=== PATIENT | male | born 1990 | race Caucasian/White ===

== ENCOUNTER 2024-04-07 11:34 | Emergency (ER) | payer MEDICAID, SELFPAY ==
--- NOTE | ~2024-04-07 | CT_ITS ---
EXAMINATION: CT HEAD WITHOUT CONTRAST CLINICAL INFORMATION: Head injury. Seizure. COMPARISON: None available. TECHNIQUE: Contiguous axial imaging was performed from the skull base to vertex without intravenous administration of contrast. This CT examination was performed using dose optimization techniques as appropriate, variously including the following: *Automated exposure control. *Adjustment of mA and/or kV according to patient size (this includes techniques or standardized protocols for targeted exams where dose is matched to indication/reason for exam; i.e. extremities or head). *Use of iterative reconstruction technique. DLP: 646 mGy-cm FINDINGS: There is no evidence of acute intracranial hemorrhage or edematous territorial infarction. Potential region of encephalomalacia along the undersurface of the right temporal lobe. No additional loss of farmer-white matter differentiation. There is no abnormal attenuation within the brain parenchyma. The ventricles are normal in morphology and size. No evidence for obstructive hydrocephalus. No abnormal mass effect or midline shift. No extra-axial fluid collections. No acute soft tissue or osseous abnormalities. Mild mucosal thickening of the paranasal sinuses. The mastoid air cells and middle ear cavities are clear. CT/CT head/brain wo IV con IMPRESSION: 1. No evidence of acute intracranial hemorrhage or edematous territorial infarction. 2. Potential region of encephalomalacia along the undersurface of the right temporal lobe. Electronically signed by: Adrian Ibrahim DO 04/07/2024 04:12 PM EDT
[2024-04-07 11:48] VITALS: BP 118/70; BP 126/87; PULSE 85; PULSE 89; RESP 16; TEMP 36.9; O2SAT 97; O2SAT 98; BMI 23.6
--- NOTE | 2024-04-07 11:58 | ED_ITS ---
HPI - General Adult General Chief complaint: Seizure Stated complaint: SZ,FALL W/HIT HEAD,+CCOLLAR,-THIN PER EMS Time Seen by Provider: 04/07/24 11:58 History of Present Illness ED Provider: Niru MENDOZA narrative: The patient is a 34-year-old male who was sent to the emergency room from the [facility] in [place] after a possible seizure episode. Apparently there was an episode that lasted about a minute which may have been a seizure. According to information from the [facility] the event lasted less than a minute and the patient drop to the floor. According to medical records provided by the care home the patient has a history of chronic mental illness including schizoaffective disorder, bipolar type as well as hyperlipidemia, type 2 diabetes, and an unspecified seizure disorder. Among other medications the patient is on carbamazepine and valproic acid. Patient is not a very forthcoming historian. He acknowledges he might have a history of a seizure disorder but he does not firmly confirm this. He denies any sense of injury or pain. He does not really feel he can give any additional history about what happened. He denies any headache. He denies any neck pain. He denies any sense of injury. He does not feel ill. According to the documents which came with the patient the patient is Haldol decanoate 300 mg every 4 weeks. He is also on oral haloperidol. Additional medications include Depakote, carbamazepine, benztropine, metformin, fenofibrate, atorvastatin. He has a Yahir's order. He also has a guardian. Related Data Allergies Allergy/AdvReac Type Severity Reaction Status Date / Time No Known Allergies Allergy Verified 04/07/24 11:53 Review of Systems 2 Review of Systems: Yes all other systems are reviewed and are negative [facility] Social History Social History Smoked in Last 30 Days: No Use of substances other than those prescribed or required for medical reasons: No Advance Directives: No Do you have a plan to hurt others: No Plan Physical Exam ED Vital Signs: Vital Signs - 24 hr 04/07/24 11:48 04/07/24 15:24 04/07/24 16:23 Temperature 98.5 F 98.5 F 98.3 F Pulse Rate 85 91 80 Respiratory Rate 16 16 14 Blood Pressure 126/87 130/83 120/70 Pulse Oximetry 97 98 98 Oxygen Delivery Method Room Air Room Air Room Air BMI result Body Mass Index 23.6 Const Other: The patient is a slim 34-year-old who was awake and alert. He was in a cervical collar. He dd not appear in acute distress or seem obviously acutely injured. HENMT Other: The face is unremarkable in appearance. The face is symmetrical. There is no raccoon eyes. No escalona sign. Tympanic membranes are normal bilaterally. No hemotympanum. No sign of injury to the head or face. Eyes General: appearance normal, both eyes and all related structures Eyelids: Yes eyelids normal Conjunctivae: conjunctivae normal Pupils: Equal, round and reactive pupils present EOM: EOMs intact bilaterally Neck Other: No posterior midline C-spine tenderness. Moving his head easily without neck pain. C-spine is clinically clear. Resp Effort & Inspection: normal respiratory effort Auscultation: clear to auscultation bilaterally Cardio Rate: regular rate Rhythm: regular rhythm Heart sounds: S1 normal heart sound present and S2 normal heart sound present GI Other: Abdomen is soft and nontender Skin Other: Skin is dry and unremarkable Neuro Other: The patient is awake and alert. He does not seem much but answer simple questions. Cranial nerves are grossly intact. He moves his extremities normally and seems grossly neurologically intact Cranial nerves: Yes Equal, round and reactive pupils present Extrem Other: No signs of injury to the extremities Medications Administered Discontinued Medications Generic Name Dose Route Start Last Admin Trade Name Freq PRN Reason Stop Dose Admin Valproic Acid 500 mg 04/07/24 14:18 04/07/24 15:47 Valproic Acid 250 Mg Capsule PO 04/07/24 14:19 500 mg ONCE ONE Administration Medical Decision Making Medical Decision Making [facility] Narrative: The patient is a 34-year-old male who was sent to the emergency room from the [facility] after a possible seizure. According to paperwork from the [facility] the patient has a history of a seizure disorder. He is on Depakote and carbamazepine. His carbamazepine level today is 6.0, in the therapeutic range. His valproic acid level is 47.4, just under the therapeutic range. He was given 500 mg of additional oral Depakote. Other labs show a transaminitis with the AST of 193 and an ALT of 151. However bilirubins are normal. Alk phos is not elevated. The significance of this transaminitis is not clear but I think there is no indication for imaging. He has no abdominal pain or tenderness. At the request of the [facility] we obtained a head CT. They were concerned that he hit his head during the seizure episode. Head CT shows no acute intracranial injury. However the reading describes an area of ?potential region of encephalomalacia along the undersurface of the right temporal lobe. ? I suspect that the patient, who has a seizure disorder, probably had a seizure today. He was given 500 mg of additional oral Depakote. I think he may return to his [facility]. They may wish to increase his Depakote. There is probably also room to increase his carbamazepine as well. Lab Data 04/07/24 12:30 04/07/24 12:30 Labs: Lab Results 04/07/24 Range/Units 12:30 WBC 5.8 (4.8-10.8) X10*3/uL RBC 4.35 L (4.60-5.80) X10*6/uL Hgb 13.4 L (14.0-18.0) g/dl Hct 38.0 L (42.0-52.0) % MCV 87.4 (80.0-98.0) fL MCH 30.8 (27.0-33.0) pg MCHC 35.3 (31.0-36.0) g/dl RDW 13.2 (11.0-16.0) % Plt Count 167 (160-400) X10*3/uL MPV 12.0 (9.4-12.4) fL Immature Gran % (Auto) 0.3 (0.0-0.4) % Neut % (Auto) 65.7 (45-73) % Lymph % (Auto) 23.8 (20-40) % [place] % (Auto) 9.3 (2-11) % Eos % (Auto) 0.2 (0-4) % Baso % (Auto) 0.7 (0-2) % Lymph # (Auto) 1.4 (1.2-4.9) X10*3/uL [place] # (Auto) 0.5 (0.1-1.2) X10*3/uL Eos # (Auto) 0.0 (0.0-0.4) X10*3/uL Baso # (Auto) 0.0 (0.0-0.2) X10*3/uL Abs Immat Gran (auto) 0.02 (0.00-0.03) X10*3/uL Absolute Neuts (auto) 3.8 (2.0-8.3) x10*3/uL Absolute Nucleated RBC 0.000 (0.0-0.012) X10*3/uL Nucleated RBC % (auto) 0.0 (0.0-0.2) /100WBC Sodium 138 (135-145) mmol/L Potassium 4.3 (3.3-5.1) mmol/L Chloride 103 (96-108) mmol/L Carbon Dioxide 26 (22-29) mmol/L Anion Gap 13 (12-20) BUN 11 (9-16) mg/dL Creatinine 0.79 (0.5-1.4) mg/dL Estim Creat Clear Calc 132.9 Estimated GFR > 60 Random Glucose 95 (60-115) mg/dL Calcium 10.1 (8.4-10.2) mg/dL Magnesium 2.0 (1.6-2.6) mg/dL Total Bilirubin 0.6 (0.0-1.0) mg/dL Direct Bilirubin 0.3 (0.0-0.5) mg/dL AST 193 H (5-37) U/L ALT 151 H (0-40) U/L Alkaline Phosphatase 35 L (39-117) U/L Total Protein 8.1 H (6.5-8.0) g/dL Albumin 4.7 (3.5-5.0) g/dL Urine Color Dark Yellow Urine Appearance Cloudy Urine pH 8.0 (5.0-9.0) Ur Specific [place] >= 1.030 H (1.005-1.025) Urine Protein 30 (1+) H (Neg-Trace) mg/dL Urine Glucose (UA) Negative (Negative) mg/dL Urine Ketones 15 (Negative) mg/dL Urine Blood Negative (Negative) Urine Nitrite Negative (Negative) Ur Leukocyte Esterase Small (1+) H (Negative) Urine RBC 0-2 (0-2) /HPF Urine WBC 0-5 (0-5) /HPF Ur Squamous Epith Cells 0-2 (0-2) /HPF Urine Bacteria None Seen (None Seen) Hyaline Casts 3-5 (0-2) /LPF Urine Opiates Screen Not Detected (Not Detect) Ur Buprenorphine Scrn Not Detected (Not Detect) ng/mL Ur Oxycodone Screen Not Detected (Not Detect) ng/mL Urine Methadone Screen Not Detected (Not Detect) ng/mL Urine Fentanyl Screen Not Detected (Not Detect) Ur Barbiturates Screen Not Detected (Not Detect) Valproic Acid 47.4 L (50.0-100.0) mcg/mL Carbamazepine 6.0 (5.0-12.0) mcg/mL Ur Phencyclidine Scrn Not Detected (Not Detect) Ur Amphetamines Screen Not Detected (Not Detect) U Benzodiazepines Scrn Not Detected (Not Detect) Urine Cocaine Screen Not Detected (Not Detect) U Marijuana (THC) Screen Not Detected (Not Detect) Ethyl Alcohol < 10 mg/dL Independent Interpretation I performed an independent interpretation of an: EKG Interpretation: EKG at 12:45 shows normal sinus rhythm at 84 beats per minute. It is an unremarkable EKG. Intervals unremarkable. Discharge Plan Discharge Clinical Impression: Seizure-like activity Patient Disposition: Xfer Psychiatric Hosp Additional Instructions: Laboratory testing reveals a valproic acid level slightly subtherapeutic at 47.4. He was given an additional 500 mg of valproic acid here. Please consider increasing his valproic acid dosing. Carbamazepine level today was 6.0. This is within the therapeutic range but at the low end of the therapeutic range. Carbamazepine dosing might be increased as well. The patient has some mild elevation of transaminases. AST is 183. ALT is 151. Bilirubin is normal. Alk phos is low at 35. The significance of these findings is unclear. No old values available for comparison. Head CT shows a possible area of encephalomalacia along the undersurface of the right temporal lobe. No acute findings. Return to the emergency room if worse. Interventions: Acute Care Transfer Worksheet (ED) Last Done: 04/07/24 16:23 Discharge Date/Time: 04/07/24 18:44 Print Language: Solomon Islander
--- NOTE | 2024-04-07 12:04 | ECG_ITS ---
Test Reason : SEIZURE Blood Pressure : / mmHG Vent. Rate : 180 BPM Atrial Rate : 182 BPM P-R Int : 120 ms QRS Dur : 132 ms QT Int : 254 ms P-R-T Axes : 000 266 073 degrees QTc Int : 439 ms Sinus tachycardia Right bundle branch block Abnormal ECG When compared with ECG of 19-SEP-2019 10:01, Vent. rate has increased BY 103 BPM Right bundle branch block is now Present Referred By: Erick Marrufo Electronically Signed By:
[2024-04-07 12:35] LABS: MANUAL DIFF FLAG NO
[2024-04-07 12:37] LABS: Appearance Urine Cloudy; Basophils Percent Auto 0.7 % (0-2); Color Urine Dark Yellow; Eosinophils Percent Auto 0.2 % (0-4); Glucose Urine UA Negative (Negative); Hemoglobin 13.4 g/dl (14.0-18.0); Imm Gran Abs Auto 0.02 X10*3/uL (0.00-0.03); Imm Gran Pct Auto 0.3 % (0.0-0.4); Leukocyte Esterase Urine Small (1+) (Negative); Lymphocytes Absolute Auto 1.4 X10*3/uL (1.2-4.9); Lymphocytes Percent Auto 23.8 % (20-40); Mean Corpuscular HGB Conc 35.3 g/dl (31.0-36.0); Mean Corpuscular Hemoglobin 30.8 pg (27.0-33.0); Mean Corpuscular Volume 87.4 fL (80.0-98.0); Monocytes Absolute Auto 0.5 X10*3/uL (0.1-1.2); Monocytes Percent Auto 9.3 % (2-11); Neutrophils Absolute Auto 3.8 x10*3/uL (2.0-8.3); Neutrophils Percent Auto 65.7 % (45-73); Nitrite Urine Negative (Negative); Platelet Count 167 X10*3/uL (160-400); Red Blood Count 4.35 X10*6/uL (4.60-5.80); Red Cell Distribution Width 13.2 % (11.0-16.0); Specific Gravity - Urine >= 1.030 (1.005-1.025); UMIC TRIGGER UACC YES; Urine Blood Negative (Negative); Urine Ketones 15 mg/dL (Negative); Urine Protein 30 (1+) mg/dL (Neg-Trace); White Blood Count 5.8 X10*3/uL (4.8-10.8)
[2024-04-07 12:45] LABS: Bacteria Urine None Seen (None Seen); RBC Urine 0-2 /HPF (0-2); Squamous Epithelial Cell Urine 0-2 /HPF (0-2); UACC Culture Trigger YES; WBC Urine 0-5 /HPF (0-5)
[2024-04-07 12:47] LABS: Amphetamine Screen Urine Not Detected (Not Detect); Barbiturates, Urine Not Detected (Not Detect); Benzodiazepines Screen Urine Not Detected (Not Detect); Buprenorphine Scr Not Detected (Not Detect); Cannabinoid Screen Urine Not Detected (Not Detect); Cocaine Screen Urine Not Detected (Not Detect); Fentanyl, urine Not Detected (Not Detect); Methadone Screen, Urine Not Detected (Not Detect); Opiate Screen Urine Not Detected (Not Detect); Oxycodone Screen Urine Not Detected (Not Detect); Phencyclidine Screen Urine Not Detected (Not Detect)
--- OUTSIDE RECORDS SUMMARY | 2024-04-07 12:47 | XMS_ITS | Continuity of Care Document ---
Author Organization [facility] Address [address] [place] [id number]- Care Team Providers Care Firefighter Name Role Phone Not on Staff, PCP Primary Care Physician Unavail able Encounter [facility] Date(s): 09/27/20 - 10/04/[address] [address]- Encounter Diagnosis Agitation(Final) - 09/27/20 Discharge Disposition: Transfer to [facility] Facility Attending Physician: García Diehl MD Admitting Physician: García Diehl MD Referring Physician: Not on Staff, Referring MD Allergies, Adverse Reactions, Alerts Substance Reaction Severity Status NKA Active Immunizations Given and Recorded Vaccine Date Status Refusal Reason tetanus/diphtheria/pertussis, acel(Tdap) 02/13/13 Given Not Given Vaccine Date Status Refusal Reason pneumococcal 23-valent vaccine 1 06/26/17 Not Give n Patient Refuses pneumococcal 23-valent vaccine 02/27/14 Not Given Patient Refuses pneumococcal 23-valent vaccine 11/07/13 Not Given Patient Refuses influenza virus vaccine, inactivated 2 06/26/17 No t Given Patient Refuses 1Result Note: Education given 2Result Note: Education given Medications benztropine 1 mg oral tablet 1 mg, 1, tablet, By Mouth, 2 times a day, # 28 tablet, Refills 2, Tot. Refills 2, Maintenance, 07/12/19 12:02:10 EST, Route to Pharmacy Electronically, [id number]_[id number], [facility]-, 176, cm, 07/12/19 7:31:19 EST, Height, 95, k... Start Date: 07/12/19 Stop Date: 08/23/19 Status: Ordered Haldol Decanoate decanoate 100 mg/ml injectable solution See Instructions, 300 mg Intramuscular Once, next dose on 08/03, may be given before or after 3 daywindow., # 1 pack/packet, 0 Refills, Soft Stop, 07/12/19 11:51:18 EST, Solution, 176, cm, 07/12/19 7:31:19 EST, Height, 95, kg, 07/06/19 20:41:29 EST,... Start Date: 07/12/19 Status: Ordered olanzapine 15 mg oral tablet 1 tablet = 15 mg, By Mouth, 2 times a day, Maintenance, 08/13/20 14:44:00 EST, Tablet Start Date: 08/13/20 Status: Ordered TEGretol XR 400 mg oral tablet, extended release 400 mg, 1, tablet, By Mouth, Every 12 hours, # 14 tablet, Refills 0, Tot. Refills 0, Maintenance, 08/20/20 11:50:00 EST, Route to Pharmacy Electronically, [facility], Partialfill upon patient request if the prescription is fo... Start Date: 08/20/20 Stop Date: 08/27/20 Status: Ordered Problem List Condition Effective Dates Status Health Status Inform ant Bipolar disorder(Confirmed) Active Epileptic seizure, generalized(Confirmed) Active Generalized seizure(Confirmed) Active Seizure disorder(Confirmed) Active Tobacco dependence(Confirmed) Active Vital Signs Most recent to oldest [Reference Range]: 1 2 3 Oxygen Saturation [94-100 %] 97 % (10/04/20 2:20 PM) 96 % (10/04/20 6:17 AM) 98 % (10/03/20 8:42 PM) Pulse Rate [55-90 bpm] 94 bpm *H* (10/04/20 2:20 PM) 61 bpm (10/04/20 6:17 AM) 97 bpm *H* (10/03/20 8:42 PM) Blood Pressure [90-138/55-84 mm Hg] 134/93mm Hg (10/04/20 2:20 PM) 112/73mm Hg (10/04/20 6:17 AM) 119/77mm Hg (10/03/20 8:42 PM) Respiratory Rate [16-30 br/min] 18 br/min (10/04/20 2:20 PM) 16 br/min (10/04/20 6:17 AM) 16 br/min (10/03/20 8:42 PM) Temperature [96.8-100.4 DegF] 97.8 DegF (10/04/20 2:20 PM) 97.7 DegF (10/04/20 6:17 AM) 97.9 DegF (10/03/20 8:42 PM) Mode of Delivery (Oxygen) Room air (10/04/20 2:20 PM) Room air (10/04/20 6:17 AM) Room air (10/03/20 8:42 PM) Blood pressure sites Arm, right (10/04/20 2:20 PM) Arm, right (10/04/20 6:17 AM) Arm, right (10/03/20 8:42 PM) Temperature Route Oral (10/04/20 2:20 PM) Oral (10/04/20 6:17 AM) Oral (10/03/20 8:42 PM) Social History Social History Type Response Smoking Status Current every day conrad cagle entered on: 06/19/14 Sex
--- OUTSIDE RECORDS SUMMARY | 2024-04-07 12:47 | XMS_ITS | Continuity of Care Document ---
Author Organization [facility] Address [address], [address], [address] [place] [address]- Care Team Providers Care Diaper Machine Tender Name Role Phone Vika TYLER, Dee Simms Primary Care Physician [phone] Encounter [facility] Date(s): 09/13/19 - 12/14/19 [facility] [address], [address], [address] [place] [id number]- [facility] Attending Physician: Floyd Ching MD Admitting Physician: Floyd Ching MD Allergies, Adverse Reactions, Alerts Substance Reaction Severity Status NKA Active Immunizations Given and Recorded Vaccine Date Status Refusal Reason tetanus/diphtheria/pertussis, acel(Tdap) 02/13/13 Given Not Given Vaccine Date Status Refusal Reason influenza virus vaccine, inactivated 1 06/26/17 No t Given Patient Refuses pneumococcal 23-valent vaccine 2 06/26/17 Not Give n Patient Refuses pneumococcal 23-valent vaccine 02/27/14 Not Given Patient Refuses pneumococcal 23-valent vaccine 11/07/13 Not Given Patient Refuses 1Result Note: Education given 2Result Note: Education given Medications benztropine 1 mg oral tablet 1 mg, 1, tablet, By Mouth, 2 times a day, # 28 tablet, Refills 2, Tot. Refills 2, Maintenance, 07/12/19 12:02:10 EST, Route to Pharmacy Electronically, NCPDP_[id number], [facility]-, 176, cm, 07/12/19 7:31:19 EST, Height, 95, k... Start Date: 07/12/19 Stop Date: 08/23/19 Status: Ordered carBAMazepine 100 mg oral tablet, chewable 100 mg, 1, tablet, Chew, Daily at bedtime, # 30 tablet, Refills 11, Tot. Refills 11, Maintenance, 04/06/20 9:35:00 EDT, Route to Pharmacy Electronically, [facility]-, 176, cm,09/13/19 9:56:00 EST, Height, 95, kg, 07/06/19 20:4... Start Date: 11/14/19 Status: Ordered Cogentin Tablet Refills 0, Maintenance, 07/14/19 10:45:23 EST Start Date: 07/14/19 Status: Ordered divalproex sodium 500 mg oral tablet, extended release 3 tablet = 1,500 mg, By Mouth, Daily, # 90 tablet, 11 Refills, Maintenance, 11/14/19 9:35:00 EDT, ER Tablet, [facility], 176, cm, 09/13/19 9:56:00 EST, Height, 95, kg, 07/06/19 20:41:00 EST, Dry Weight Start Date: 11/14/19 Status: Ordered Haldol Decanoate decanoate 100 mg/ml [...] mg, By Mouth, 2 times a day, # 28 tablet, 2 Refills, Maintenance, 07/12/19 11:49:28 EST, Tablet, 176, cm, 07/12/19 7:31:19 EST, Height, 95, kg, 07/06/19 20:41:29 EST, Dry Weight Start Date: 07/12/19 Stop Date: 08/23/19 Status: Ordered TEGretol 200 mg oral tablet 200 mg, 1, tablet, By Mouth, 2 times a day, # 60 tablet, Refills 11, Tot. Refills 11, Maintenance, 11/14/19 9:35:00 EDT, Route to Pharmacy Electronically, [id number], 176, cm, 09/13/19 9:56:00 EST, Height, 95, kg, 07/06/19 20:... Start Date: 11/14/19 Status: Ordered ZyPREXA 15 mg oral tablet 1 tablet = 15 mg, By Mouth, Daily, 0 Refills, Maintenance, 07/14/19 10:45:12 EST Start Date: 07/14/19 Status: Ordered Problem List Condition Effective Dates Status Health Status Inform ant Bipolar disorder(Confirmed) Active Epileptic seizure, generalized(Confirmed) Active Generalized seizure(Confirmed) Active Seizure disorder(Confirmed) Active Tobacco dependence(Confirmed) Active Social History Social History Type Response Smoking Status Current every day conrad cagle entered on: 06/19/14 Sex
--- OUTSIDE RECORDS SUMMARY | 2024-04-07 12:47 | XMS_ITS | Continuity of Care Document ---
Author Organization [facility] Address [address] [facility], [address], [address] [place] [id number]- Care Team Providers Care Fire Patroller Name Role Phone Not on Staff, PCP Primary Care Physician Unavail able Encounter [facility] [place] Date(s): 10/17/20 - 12/05/20 [facility] [address], [address], [address] [place] [id number] Attending Physician: Ronald Avila NP Admitting Physician: Ronald Avila NP Allergies, Adverse Reactions, Alerts Substance Reaction Severity [...] Education given 2Result Note: Education given Medications carBAMazepine 200 mg oral tablet 200 mg, 1, tablet, By Mouth, 2 times a day, # 28 tablet, Refills 1, Tot. Refills 1, Maintenance, 11/26/20 15:26:00 EDT, Route to Pharmacy Electronically, [facility]-, Partial fill upon patient request if the prescription is for... Start Date: 11/26/20 Stop Date: 12/24/20 Status: Ordered divalproex sodium 500 mg oral tablet, extended release 3 tablet = 1,500 mg, By Mouth, Daily at bedtime, # 90 tablet, 0 Refills, Maintenance, 10/09/20 10:39:00 EST, ER Tablet, [facility], Partial fill upon patient request if the prescription is for a schedule II opioid drug., 175.2... Start Date: 10/09/20 Stop Date: 11/08/20 Status: Ordered Haldol Decanoate decanoate 100 mg/ml injectable solution See Instructions, 300 mg Intramuscular Once every 4 weeks, next dose due on 12/19/2020. Dispense medication on the day of administration., # 1 each, 0 Refills, Soft Stop, 11/26/20 15:28:00 EDT, Solution, [facility]-, Partial jalil... Start Date: 11/26/20 Status: Ordered ZyPREXA 10 mg oral tablet 10 mg, 1, tablet, By Mouth, 2 times a day, # 28 tablet, Refills 1, Tot. Refills 1, Maintenance, 11/26/20 15:27:00 EDT, Route to Pharmacy Electronically, [facility]-, Partial fill upon patient request if the prescription is for... Start Date: 11/26/20 Stop Date: 12/24/20 Status: Ordered Problem List Condition Effective Dates Status Health Status Inform ant Bipolar disorder(Confirmed) Active Epileptic seizure, generalized(Confirmed) Active Generalized seizure(Confirmed) Active Seizure disorder(Confirmed) Active Tobacco dependence(Confirmed) Active Social History Social History Type Response Smoking Status Current every day conrad cagle entered on: 06/19/14 Sex
--- OUTSIDE RECORDS SUMMARY | 2024-04-07 12:48 | XMS_ITS | Continuity of Care Document ---
Author Organization [facility] Address Unknown Care Team Providers Care Marble Cutter Name Role Phone Joshua TYLER, Tavon Primary Care Physician [phone] [id number] Date[facility] - 11[facility]28/21 [facility] Attending Physician: Floyd Ching MD Admitting Physician: Floyd Ching MD Allergies, Adverse Reactions, Alerts No Known Allergies Immunizations Given and Recorded Vaccine Date Status [...] tablet, By Mouth, 2 times a day, Refills 0, Maintenance, 09/20/21 14:08:00 EST, Partial fill upon patient request if the prescription is for a schedule II opioid drug. Start Date: 09/20/21 Status: Ordered benztropine 1 mg oral tablet 1 mg, 1, tablet, By Mouth, 2 times a day, # 60 tablet, Refills 1, Tot. Refills 1, Maintenance, 04/12/21 11:24:00 EDT, Route to Pharmacy Electronically, [facility]-, Partial fill upon patient request if the prescription is for a... Start Date: 04/12/21 Status: Ordered carBAMazepine 100 mg oral tablet, chewable 300 mg, 3, tablet, Chew, 2 times a day, # 180 tablet, Refills 1, Tot. Refills 1, Maintenance, 04/12/21 11:25:00 EDT, Route to Pharmacy Electronically, [facility], Partial fill upon patient request if the prescription is for a... Start Date: 04/12/21 Status: Ordered chlorproMAZINE 100 mg oral tablet = 100 mg, By Mouth, 4 times a day, PRN Agitation, # 60 tablet, 1 Refills, Maintenance, 04/12/21 11:25:00 EDT, Tablet, [facility]-, Partial fill upon patient request if the prescription is for a schedule II opioid drug., 175, cm... Start Date: 04/12/21 Status: Ordered divalproex sodium 250 mg oral tablet, extended release 3 tablet = 750 mg, By Mouth, Daily in AM, # 90 tablet, 0 Refills, Maintenance, 09/20/21 17:51:00 EST, ER Tablet, [facility]/pharmacy #[id number], Partial fill upon patient request if the prescription is for a schedule II opioid drug. Start Date: 09/20/21 Status: Ordered Haldol Decanoate decanoate 100 mg/ml injectable solution = 300 mg, Intramuscular, Once, next due on 04/23/2021, # 1 each, 1 Refills, Soft Stop, 04/12/21 11:25:00 EDT, [facility], Partial fill upon patient request if the prescriptionis for a schedule II opioid drug., 175, cm, ... Start Date: 04/12/21 Status: Ordered melatonin 10 mg oral capsule 1 capsule = 10 mg, By Mouth, Daily at bedtime, PRN Sleep, # 30 capsule, 1 Refills, Maintenance, 04/12/21 11:27:00 EDT, Capsule, [facility], Partial fill upon patient request if the prescription is for a schedule II opioid drug... Start Date: 04/12/21 Status: Ordered melatonin 3 mg oral tablet 1 tablet = 3 mg, By Mouth, Daily at bedtime, PRN Sleep, 0 Refills, Maintenance, 09/20/21 14:08:00 EST, Partial fill upon patient request if the prescription is for a schedule II opioid drug. Start Date: 09/20/21 Status: Ordered olanzapine 15 mg oral tablet 1 tablet = 15 mg, By Mouth, 2 times a day, # 60 tablet, 1 Refills, Maintenance, 04/12/21 11:25:00 EDT, Tablet, [facility]-, Partial fill upon patient request if the prescription is for a schedule II opioid drug., 175, cm, 04/09... Start Date: 04/12/21 Status: Ordered ZyPREXA 5 mg oral tablet 5 mg, 1, tablet, By Mouth, 2 times a day, # 30 tablet, Refills 0, Tot. Refills 0, Maintenance, 09/21/21 0:31:00 EST, Route to Pharmacy Electronically, [facility]/pharmacy #[id number], Partial fill upon patient request if the prescription is for a schedule II opioi... Start Date: 09/21/21 Status: Ordered Problem List Condition Effective Dates Status Health Status Inform ant Bipolar disorder(Confirmed) Active Fall(Confirmed) Active Epileptic seizure, generalized(Confirmed) Active Generalized seizure(Confirmed) Active Traumatic ecchymosis of face(Confirmed) Active Violent behavior(Confirmed) Active Schizophrenic disorder(Confirmed) Active Seizure disorder(Confirmed) Active Tobacco dependence(Confirmed) Active Social History Social History Type Response Smoking Status Current every day conrad cagle entered on: 06/19/14 Sex
--- OUTSIDE RECORDS SUMMARY | 2024-04-07 12:48 | XMS_ITS | Continuity of Care Document ---
Author Organization [facility] Address [address] [facility], [address] d Floor, [address] [place] [address]- Care Team Providers Care Steamship Agent Name Role Phone Vika TYLER, Dee Simms Primary Care Physician Encounter [facility] [place] Date(s): 11/14/19 - 11/21/19 [facility] [address], [address], [address] [place] [address]- [facility] Attending Physician: Floyd Ching MD Allergies, Adverse Reactions, [...] 07/12/19 12:02:10 EST, Route to Pharmacy Electronically, NCPDP_[id number], [facility]-[id number], 176, cm, 07/12/19 7:31:19 EST, Height, 95, k... Start Date: 07/12/19 Stop Date: 08/23/19 Status: Ordered carBAMazepine 100 mg oral tablet, chewable 100 mg, 1, tablet, Chew, Daily at bedtime, # 30 tablet, Refills 11, Tot. Refills 11, Maintenance, 11/14/19 9:35:00 EDT, Route to Pharmacy Electronically, [facility]-, 176, cm,09/13/19 9:56:00 EST, Height, 95, kg, 07/06/19 20:4... Start Date: 11/14/19 Status: Ordered Cogentin Tablet Refills 0, Maintenance, 07/14/19 10:45:23 EST Start Date: 07/14/19 Status: Ordered divalproex sodium 500 mg oral tablet, extended release 3 tablet = 1,500 mg, By Mouth, Daily, # 90 tablet, 11 Refills, Maintenance, 11/14/19 9:35:00 EDT, ER Tablet, [facility], 176, cm, 09/13/19 9:56:00 EST, Height, [...] 11/14/19 9:35:00 EDT, Route to Pharmacy Electronically, [facility], 176, cm, 09/13/19 9:56:00 EST, Height, [...]
--- OUTSIDE RECORDS SUMMARY | 2024-04-07 12:48 | XMS_ITS | Continuity of Care Document ---
Author Organization [facility] Address [address] [place] [address]- Care Team Providers Care Isotope Hydrologist Name Role Phone Joshua TYLER, Tavon Primary Care Physician Encounter [facility] [place] Date(s): 06/15/21 - 06/17/[address] [address]- Encounter Diagnosis Delusions(Final) - 06/15/21 Schizophrenia(Final) - 06/15/21 Noncompliance with medication regimen(Final) - 06/15/21 Discharge Disposition: A-D/C Home Attending Physician: Isabelle Elizondo MD Admitting Physician: Isabelle Elizondo MD Referring Physician: Not on Staff, Referring [...] 04/12/21 11:24:00 EDT, Route to Pharmacy Electronically, [facility]-, Partial fill upon patient request if the prescription is for a... Start Date: 04/12/21 Status: Ordered carBAMazepine 100 mg oral tablet, chewable 300 mg, 3, tablet, Chew, 2 times a day, # 180 tablet, Refills 1, Tot. Refills 1, Maintenance, 04/12/21 11:25:00 EDT, Route to Pharmacy Electronically, [facility], Partial fill upon patient request if the prescription is for a... Start Date: 04/12/21 Status: Ordered chlorproMAZINE 100 mg oral tablet = 100 mg, By Mouth, 4 times a day, PRN Agitation, # 60 tablet, 1 Refills, Maintenance, 04/12/21 11:25:00 EDT, Tablet, [facility], Partial fill upon patient request if the prescription is for a schedule II opioid drug., 175, cm... Start Date: 04/12/21 Status: Ordered Haldol Decanoate decanoate 100 mg/ml injectable solution = 300 mg, Intramuscular, Once, next due on 04/23/2021, # 1 each, 1 Refills, Soft Stop, 04/12/21 11:25:00 EDT, [facility], Partial fill upon patient request if the prescriptionis for a schedule II opioid drug., 175, cm, ... Start Date: 04/12/21 Status: Ordered melatonin 10 mg oral capsule 1 capsule = 10 mg, By Mouth, Daily at bedtime, PRN Sleep, # 30 capsule, 1 Refills, Maintenance, 04/12/21 11:27:00 EDT, Capsule, [facility], Partial fill upon patient request if the prescription is for a schedule II opioid drug... Start Date: 04/12/21 Status: Ordered olanzapine 15 mg oral tablet 1 tablet = 15 mg, By Mouth, 2 times a day, # 60 tablet, 1 Refills, Maintenance, 04/12/21 11:25:00 EDT, Tablet, [facility], Partial fill upon patient request if the prescription is for a schedule II opioid drug., 175, cm, 04/09... Start Date: 04/12/21 Status: Ordered Problem List Condition Effective Dates Status Health Status Inform ant Bipolar disorder(Confirmed) Active Epileptic seizure, generalized(Confirmed) Active Generalized seizure(Confirmed) Active Seizure disorder(Confirmed) Active Tobacco dependence(Confirmed) Active Results Radiology Reports * Exam Date Time Procedure Performing Provider Status 06/17/21 12:04 AM Chest 2 Views Frontal and Lat Jones Mikayla; Auth (Verified) Notes: (Chest 2 Views Frontal and Lat) Reason For Exam: Shortness of Breath, Fever;Other: RESULT: Chest 2 Views Frontal and Lat Chest 2 Views Frontal and Lat Hx of Present Illness: Pt states I don't want to hurt nobody bro! Denies hearing any voices and states I'm not hearing voices, you guys make me hear the voices, y'all trying to keep olga bro. States I need my life back. Denies taking medications X 2 months.; Reason: Other:; Shortness of Breath, Fever; Clinical Question(s): Pneumonia COMPARISON: Multiple priors, most recent 06/16/2021. FINDINGS: LINES AND TUBES: None. LUNGS AND PLEURA: Clear lungs. Normal pulmonary vascularity. No pleural effusion. No pneumothorax. HEART, MEDIASTINUM AND MARY: Heart is normal in size. Normal upper mediastinal and hilar contour. BONES AND SOFT TISSUES: No acute abnormality. IMPRESSION: No acute abnormality. I have personally reviewed the images and I agree with this report. WSN: [id number] Ordering Physician: Yulia Sutton MD Dictated By: Jeff Robertson DO Dictated Date/Time: 06/17/21 9:08 am Reviewed By: Harley Stewart MD Signed By: Harley Stewart MD Signed Date/Time: 06/17/21 9:13 am Transcribed By: CISCO Transcribed Date/Time: 06/17/21 6:44 am * Exam Date Time Procedure Performing Provider Status 06/16/21 8:04 AM Chest 2 Views Frontal and Lat Shey Guzman; Auth (Verified) Notes: (Chest 2 Views Frontal and Lat) Reason For Exam: Fever RESULT: Chest 2 Views Frontal and Lat Chest 2 Views Frontal and Lat Hx of Present Illness: Pt states I don't want to hurt nobody bro! Denies hearing any voices and states I'm not hearing voices, you guys make me hear the voices, y'all trying to keep olga bro. States I need my life back. Denies taking medications X 2 months.; Reason: Fever; Clinical Question(s): Pneumonia COMPARISON: 03/20/2014. FINDINGS: LINES AND TUBES: None. LUNGS AND PLEURA: Clear lungs. Normal pulmonary vascularity. No pleural effusion. No pneumothorax. HEART, MEDIASTINUM AND MARY: Heart is normal in size. Normal upper mediastinal and hilar contour. BONES AND SOFT TISSUES: No acute abnormality. IMPRESSION: No acute abnormality. WSN: [id number] Ordering Physician: Marisa Lowry Dictated By: Bharat Mccollum MD Dictated Date/Time: 06/16/21 9:34 am Reviewed By: Bharat Mccollum MD Signed By: Bharat Mccollum MD Signed Date/Time: 06/16/21 9:34 am Transcribed By: CISCO Transcribed Date/Time: 06/16/21 9:33 am Vital Signs Most recent to oldest [Reference Range]: 1 2 3 Oxygen Saturation [94-100 %] 100 % (06/17/21 7:53 AM) 98 % (06/17/21 5:48 AM) 99 % (06/17/21 5:08 AM) Pulse Rate [55-90 bpm] 85 bpm (06/17/21 7:53 AM) 73 bpm (06/17/21 5:48 AM) 83 bpm (06/17/21 5:08 AM) Blood Pressure [90-138/55-84 mm Hg] 115/72mm Hg (06/17/21 7:53 AM) 121/76mm Hg (06/17/21 5:48 AM) 121/76mm Hg (06/17/21 5:08 AM) Respiratory Rate [16-30 br/min] 20 br/min (06/17/21 7:53 AM) 19 br/min (06/17/21 5:48 AM) 20 br/min (06/17/21 5:08 AM) Temperature [96.8-100.4 DegF] 98.1 DegF (06/17/21 7:53 AM) 98.0 DegF (06/17/21 5:48 AM) 98.4 DegF (06/17/21 1:05 AM) Liters per Minute 2 L/min (06/16/21 2:22 AM) 2 L/min (06/16/21 1:43 AM) Mode of Delivery (Oxygen) Room air (06/17/21 7:53 AM) Room air (06/17/21 5:48 AM) Room air (06/17/21 5:08 AM) Blood pressure sites Arm, left (06/17/21 7:53 AM) Arm, left (06/17/21 5:48 AM) Arm, left (06/17/21 5:08 AM) Temperature Route Oral (06/17/21 7:53 AM) Oral (06/17/21 5:48 AM) Oral (06/17/21 1:05 AM) Social History Social History Type Response Smoking Status Current every day conrad cagle entered on: 06/19/14 Sex
--- OUTSIDE RECORDS SUMMARY | 2024-04-07 12:48 | XMS_ITS | Continuity of Care Document ---
Author Organization [facility] Address [address] [place] [address]- Care Team Providers Care Wood Model Maker Name Role Phone Not on Staff, PCP Primary Care Physician Unavail able Encounter [facility] [place] Date(s): 06/19/20 - 06/19/[address] [address]- Encounter Diagnosis Seizure-like activity(Final) - 06/19/20 Discharge Disposition: A-D/C Home Attending Physician: Robert Estrada MD Admitting Physician: Robert Estrada MD Referring Physician: Not on Staff, Referring [...] 07/12/19 12:02:10 EST, Route to Pharmacy Electronically, NCPDP_[id number], [facility]-, 176, cm, 07/12/19 7:31:19 EST, Height, 95, k... Start Date: 07/12/19 Stop Date: 08/23/19 Status: Ordered divalproex sodium 500 mg oral tablet, extended release 3 tablet = 1,500 mg, By Mouth, Daily, # 90 tablet, 11 Refills, Maintenance, 04/06/20 9:35:00 EDT, ER Tablet, [facility]-[id number], 176, cm, 09/13/19 9:56:00 EST, Height, 95, [...] EST,... Start Date: 07/12/19 Status: Ordered olanzapine 5 mg oral tablet 15 mg, 3, tablet, By Mouth, 2 times a day, Refills 0, Maintenance, 05/01/20 9:22:00 EDT Start Date: 05/01/20 Status: Ordered TEGretol 200 mg oral tablet 300 mg, 1.5, tablet, By Mouth, 2 times a day, Refills 0, Maintenance, 05/01/20 9:21:00 EDT Start Date: 05/01/20 Status: Ordered Problem List Condition Effective Dates Status Health Status Inform ant Bipolar disorder(Confirmed) Active Epileptic seizure, generalized(Confirmed) Active Generalized seizure(Confirmed) Active Seizure disorder(Confirmed) Active Tobacco dependence(Confirmed) Active Vital Signs Most recent to oldest [Reference Range]: 1 2 Oxygen Saturation [94-100 %] 100 % (06/19/20 1:14 PM) 97 % (06/19/20 11:00 AM) Pulse Rate [55-90 bpm] 77 bpm (06/19/20 1:14 PM) 94 bpm *H* (06/19/20 11:00 AM) Blood Pressure [90-138/55-84 mm Hg] 121/ 63mm Hg (06/19/20 1:14 PM) 132/79mm Hg (06/19/20 11:00 AM) Respiratory Rate [16-30 br/min] 18 br/mi n (06/19/20 1:14 PM) 20 br/min (06/19/20 11:00 AM) Temperature [96.8-100.4 DegF] 98.7 DegF (06/19/20 1:14 PM) 99.1 DegF (06/19/20 11:00 AM) Mode of Delivery (Oxygen) Room air (06/19/20 1:14 PM) Room air (06/19/20 11:00 AM) Temperature Route Oral (06/19/20 1:14 PM) Oral (06/19/20 11:00 AM) Social History Social History Type Response Smoking Status Current every day conrad cagle entered on: 06/19/14 Sex
--- OUTSIDE RECORDS SUMMARY | 2024-04-07 12:48 | XMS_ITS | Continuity of Care Document ---
Author Organization [facility] ter Address [address] [place] [phone]- Care Team Providers Care Distillery Miller Helper Name Role Phone Not on Staff, PCP Primary Care Physician Unavail able [place]counter [facility] [place] Date(s): 02/04/21 - 02/05/[address] [address]- Encounter Diagnosis Loss of consciousness(Final) - 02/05/21 Discharge Disposition: A-D/C Home Attending Physician: Gonzalo Fournier MD Admitting Physician: Gonzalo Fournier MD Referring Physician: Not on Staff, Referring MD Results Radiology Reports * Exam Date Time Procedure Performing Provider Status 02/04/21 8:02 PM Chest Portable Emelyn Daniel; Auth (V erified) Notes: (Chest Portable) Reason For Exam: Trauma;Other: RESULT: Chest Portable Chest Portable Reason: Trauma; Pneumothorax COMPARISON: None. FINDINGS: LINES AND TUBES: None. LUNGS AND PLEURA: Clear lungs. Normal pulmonary vascularity. No pleural effusion. No pneumothorax. HEART, MEDIASTINUM AND MARY: Heart is normal in size. Normal upper mediastinal and hilar contour. BONES AND SOFT TISSUES: No acute abnormality. IMPRESSION: No acute abnormality. WSN: [id number] Ordering Physician: Rommel Brown Dictated By: Jose Alberto Odom MD Dictated Date/Time: 02/04/21 8:21 pm Reviewed By: Jose Alberto Odom MD Signed By: Jose Alberto Odom MD Signed Date/Time: 02/04/21 8:21 pm Transcribed By: CISCO Transcribed Date/Time: 02/04/21 8:20 pm Vital Signs Most recent to oldest [Reference Range]: 1 2 3 Oxygen Saturation [94-100 %] 95 % (02/05/21 5:01 AM) 98 % (02/04/21 11:00 PM) 97 % (02/04/21 8:54 PM) Pulse Rate [55-90 bpm] 91 bpm *H* (02/05/21 5:01 AM) 78 bpm (02/04/21 11:00 PM) 80 bpm (02/04/21 8:54 PM) Blood Pressure [90-138/55-84 mm Hg] 134/83mm Hg (02/05/21 5:01 AM) 112/68mm Hg (02/04/21 11:00 PM) 132/87mm Hg (02/04/21 8:54 PM) Respiratory Rate [16-30 br/min] 20 br/min (02/05/21 5:01 AM) 16 br/min (02/04/21 11:00 PM) 17 br/min (02/04/21 8:54 PM) Temperature [96.8-100.4 DegF] 97.4 DegF (02/05/21 5:01 AM) 98.2 DegF (02/04/21 8:54 PM) Mode of Delivery (Oxygen) Room air (02/05/21 5:01 AM) Room air (02/04/21 11:00 PM) Room air (02/04/21 8:54 PM) Blood pressure sites Arm, left (02/05/21 5:01 AM) Temperature Route Oral (02/05/21 5:01 AM) Temporal (02/04/21 8:54 PM)
--- OUTSIDE RECORDS SUMMARY | 2024-04-07 12:48 | XMS_ITS | Continuity of Care Document ---
Author Organization [facility] ter Address [address] [place] [address]- Care Team Providers Care Lofter Name Role Phone Joshua TYLER, Tavon Primary Care Physician [phone] Encounter [facility] [place] Date(s): 04/02/22 - 04/02/22 [facility] [address] [place] [address]- Encounter Diagnosis PCP abuse(Final) - 04/02/22 Discharge Disposition: A-D/C Penitentiary, Half-Way, or Half-Way Fac Attending Physician: Vicenta Martinez DO Admitting Physician: Vicenta Martinez DO Referring Physician: Not on Staff, Referring MD Allergies, Adverse Reactions, Alerts No Known [...] 04/12/21 11:24:00 EDT, Route to Pharmacy Electronically, [facility], Partial fill upon patient request if the prescription is for a... Start Date: 04/12/21 Status: Ordered carBAMazepine 100 mg oral tablet, chewable 300 mg, 3, tablet, Chew, 2 times a day, # 180 tablet, Refills 1, Tot. Refills 1, Maintenance, 04/12/21 11:25:00 EDT, Route to Pharmacy Electronically, [facility]-, Partial fill upon patient request if the prescription is for a... Start Date: 04/12/21 Status: Ordered chlorproMAZINE 100 mg oral tablet = 100 mg, By Mouth, 4 times a day, PRN Agitation, # 60 tablet, 1 Refills, Maintenance, 04/12/21 11:25:00 EDT, Tablet, [facility], Partial fill upon patient request if the prescription is for a schedule II opioid drug., 175, cm... Start Date: 04/12/21 Status: Ordered divalproex sodium 250 mg oral tablet, extended release 3 tablet = 750 mg, By Mouth, Daily in AM, # 90 tablet, 0 Refills, Maintenance, 09/20/21 17:51:00 EST, ER Tablet, [facility]/pharmacy #[id number], Partial fill upon patient request if the prescription is for a schedule II opioid drug. Start Date: 09/20/21 Status: Ordered Haldol Decanoate decanoate 100 mg/ml injectable solution = 300 mg, Intramuscular, Once, next due on 04/23/2021, # 1 each, 1 Refills, Soft Stop, 04/12/21 11:25:00 EDT, [facility], Partial fill upon patient request if the prescriptionis for a schedule II opioid drug., 175, cm, ... Start Date: 04/12/21 Status: Ordered melatonin 10 mg oral capsule 1 capsule = 10 mg, By Mouth, Daily at bedtime, PRN Sleep, # 30 capsule, 1 Refills, Maintenance, 04/12/21 11:27:00 EDT, Capsule, [facility], Partial fill upon patient request if [...] 1 Refills, Maintenance, 04/12/21 11:25:00 EDT, Tablet, [facility]-, Partial fill upon patient request if the prescription is for a schedule II opioid drug., 175, cm, 04/09... Start Date: 04/12/21 Status: Ordered ZyPREXA 5 mg oral tablet 5 mg, 1, tablet, By Mouth, 2 times a day, # 30 tablet, Refills 0, Tot. Refills 0, Maintenance, 09/21/21 0:31:00 EST, Route to Pharmacy Electronically, [facility]/pharmacy #[id number], Partial fill upon patient request if the [...] Most recent to oldest [Reference Range]: 1 Oxygen Saturation [94-100 %] 100 % (04/02/22 11:38 AM) Pulse Rate [55-90 bpm] 89 bpm (04/02/22 11:38 AM) Blood Pressure [90-138/55-84 mm Hg] 126/ 80mm Hg (04/02/22 11:38 AM) Respiratory Rate [16-30 br/min] 18 br/mi n (04/02/22 11:38 AM) Temperature [96.8-100.4 DegF] 98.9 DegF (04/02/22 11:38 AM) Liters per Minute 0 L/min (04/02/22 11:38 AM) Mode of Delivery (Oxygen) Room air (04/02/22 11:38 AM) Temperature Route Oral (04/02/22 11:38 AM) Social History Social History Type Response Smoking Status Current every day conrad cagle entered on: 06/19/14 Sex
--- OUTSIDE RECORDS SUMMARY | 2024-04-07 12:48 | XMS_ITS | Continuity of Care Document ---
Author Organization [facility] ter Address [address] [place] [address]- Care Team Providers Care Coal Weigher Name Role Phone Tavon Lewis NP Primary Care Physician [phone] [place] [facility] [place] [facility] [place] 01/[place] [facility] [address] [place] [address]- Encounter Diagnosis Paranoia(Final) - 12/29/21 Agitation(Final) - 12/29/21 Schizoaffective disorder(Final) - 12/29/21 Discharge Disposition: A-D/C Home Attending Physician: Everardo Jones MD Admitting Physician: Everardo Jones MD Referring Physician: Not on Staff, Referring [...] 04/12/21 11:24:00 EDT, Route to Pharmacy Electronically, [facility], Partial fill upon patient request if the prescription is for a... Start Date: 04/12/21 Status: Ordered carBAMazepine 100 mg oral tablet, chewable 300 mg, 3, tablet, Chew, 2 times a day, # 180 tablet, Refills 1, Tot. Refills 1, Maintenance, 04/12/21 11:25:00 EDT, Route to Pharmacy Electronically, [facility], Partial fill upon patient request if the prescription is for a... Start Date: 04/12/21 Status: Ordered chlorproMAZINE 100 mg oral tablet = 100 mg, By Mouth, 4 times a day, PRN Agitation, # 60 tablet, 1 Refills, Maintenance, 04/12/21 11:25:00 EDT, Tablet, [facility], Partial fill upon patient request if the prescription is for a schedule II opioid drug., 175, cm... Start Date: 04/12/21 Status: Ordered divalproex sodium 250 mg oral tablet, extended release 3 tablet = 750 mg, By Mouth, Daily in AM, # 90 tablet, 0 Refills, Maintenance, 09/20/21 17:51:00 EST, ER Tablet, [facility]/pharmacy #[id number], Partial fill upon patient request if the prescription is for a schedule II opioid drug. Start Date: 09/20/21 Status: Ordered Haldol Decanoate decanoate 100 mg/ml injectable solution = 300 mg, Intramuscular, Once, next due on 04/23/2021, # 1 each, 1 Refills, Soft Stop, 04/12/21 11:25:00 EDT, [facility], Partial fill upon patient request if the prescriptionis for a schedule II opioid drug., 175, cm, ... Start Date: 04/12/21 Status: Ordered melatonin 10 mg oral capsule 1 capsule = 10 mg, By Mouth, Daily at bedtime, PRN Sleep, # 30 capsule, 1 Refills, Maintenance, 04/12/21 11:27:00 EDT, Capsule, [facility], Partial fill upon patient request if [...] 1 Refills, Maintenance, 04/12/21 11:25:00 EDT, Tablet, [facility]-, Partial fill upon patient request if the prescription is for a schedule II opioid drug., 175, cm, 04/09... Start Date: 04/12/21 Status: Ordered ZyPREXA 5 mg oral tablet 5 mg, 1, tablet, By Mouth, 2 times a day, # 30 tablet, Refills 0, Tot. Refills 0, Maintenance, 09/21/21 0:31:00 EST, Route to Pharmacy Electronically, [facility]/pharmacy #[id number], Partial fill upon patient request if the [...] 1 2 3 Oxygen Saturation [94-100 %] 94 % (01/04/22 6:59 AM) 94 % (01/04/22 1:08 AM) 95 % (01/03/22 5:19 PM) Pulse Rate [55-90 bpm] 92 bpm *H* (01/04/22 6:59 AM) 63 bpm (01/04/22 1:08 AM) 93 bpm *H* (01/03/22 5:19 PM) Blood Pressure [90-138/55-84 mm Hg] 131/82mm Hg (01/04/22 6:59 AM) 127/88mm Hg (01/04/22 1:08 AM) 116/89mm Hg (01/03/22 5:19 PM) Respiratory Rate [16-30 br/min] 18 br/min (01/04/22 6:59 AM) 16 br/min (01/04/22 1:08 AM) 16 br/min (01/03/22 5:19 PM) Temperature [96.8-100.4 DegF] 98.5 DegF (01/04/22 1:08 AM) 97.8 DegF (01/03/22 8:12 AM) 98.3 DegF (01/03/22 3:07 AM) Mode of Delivery (Oxygen) Room air (01/04/22 6:59 AM) Room air (01/04/22 1:08 AM) Room air (01/03/22 8:12 AM) Blood pressure sites Arm, right (01/04/22 6:59 AM) Arm, left (01/02/22 4:51 AM) Arm, left (01/01/22 6:48 PM) Temperature Route Oral (01/04/22 1:08 AM) Oral (01/03/22 3:07 AM) Axillary (01/02/22 8:10 PM) Social History Social History Type Response Smoking Status Current every day conrad cagle entered on: 06/19/14 Sex
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
--- OUTSIDE RECORDS SUMMARY | 2024-04-07 12:48 | XMS_ITS | Continuity of Care Document ---
Author Organization [facility] Address [address] [facility], [address] Floor, [address] [place] [address]- Care Team Providers Care Switchboard Operator Assistant Name Role Phone Not on Staff, PCP Primary Care Physician Unavail able Encounter [facility] Date(s): 11/14/20 - 12/14/20 [facility] [address], [address] [place] [address] Attending Physician: Gerry Li Admitting Physician: AdmGerry dennis Referring Physician: Admtr, Ar8 Allergies, Adverse Reactions, Alerts Substance Reaction Severity [...] 11/26/20 15:26:00 EDT, Route to Pharmacy Electronically, [facility]-, Partial fill upon patient request if the prescription is for... Start Date: 11/26/20 Stop Date: 12/24/20 Status: Ordered divalproex sodium 500 mg oral tablet, extended release 3 tablet = 1,500 mg, By Mouth, Daily at bedtime, # 90 tablet, 0 Refills, Maintenance, 10/09/20 10:39:00 EST, ER Tablet, [facility], Partial fill upon patient request if [...] Refills, Soft Stop, 11/26/20 15:28:00 EDT, Solution, [facility]-, Partial jalil... Start Date: 11/26/20 Status: Ordered ZyPREXA 10 mg oral tablet 10 mg, 1, tablet, By Mouth, 2 times a day, # 28 tablet, Refills 1, Tot. Refills 1, Maintenance, 11/26/20 15:27:00 EDT, Route to Pharmacy Electronically, [facility]-, Partial fill upon patient request if [...]
--- OUTSIDE RECORDS SUMMARY | 2024-04-07 12:48 | XMS_ITS | Continuity of Care Document ---
Author Organization [facility] Address [address] [place] [address]- Care Team Providers Care Environmental Health And Safety Manager Name Role Phone Not on Staff, PCP Primary Care Physician Unavail able Encounter [facility] [place] Date(s): 10/15/20 - 10/15/[address] [address]- Discharge Disposition: A-D/C Home Attending Physician: Bay Don DO Admitting Physician: Bay Don DO Referring Physician: Not on Staff, Referring [...] times a day, # 60 tablet, Refills 0, Tot. Refills 0, Maintenance, 10/09/20 10:38:00 EST, Route to Pharmacy Electronically, [facility]-, Partial fill upon patient request if the prescription is for a... Start Date: 10/09/20 Stop Date: 11/08/20 Status: Ordered carBAMazepine 400 mg oral tablet, extended release 400 mg, 1, tablet, By Mouth, 2 times a day, # 60 tablet, Refills 0, Tot. Refills 0, Maintenance, 10/09/20 10:38:00 EST, Route to Pharmacy Electronically, [facility], Partial fill upon patient request if the prescription is for... Start Date: 10/09/20 Stop Date: 11/08/20 Status: Ordered divalproex sodium 500 mg oral tablet, extended release 3 tablet = 1,500 mg, By Mouth, Daily at bedtime, # 90 tablet, 0 Refills, Maintenance, 10/09/20 10:39:00 EST, ER Tablet, [facility], Partial fill upon patient request if the prescription is for a schedule II opioid drug., 175.2... Start Date: 10/09/20 Stop Date: 11/08/20 Status: Ordered haloperidol 10 mg oral tablet 10 mg, 1, tablet, By Mouth, 2 times a day, # 60 tablet, Refills 0, Tot. Refills 0, Maintenance, 10/09/20 10:38:00 EST, Route to Pharmacy Electronically, [facility], Partial fill upon patient request if the prescription is for... Start Date: 10/09/20 Stop Date: 11/08/20 Status: Ordered Problem List Condition Effective Dates Status Health Status Inform ant Bipolar disorder(Confirmed) Active Epileptic seizure, generalized(Confirmed) Active Generalized seizure(Confirmed) Active Seizure disorder(Confirmed) Active Tobacco dependence(Confirmed) Active Vital Signs Most recent to oldest [Reference Range]: 1 2 3 Oxygen Saturation [94-100 %] 99 % (10/15/20 4:31 PM) 99 % (10/15/20 10:19 AM) 100 % (10/15/20 8:33 AM) Pulse Rate [55-90 bpm] 90 bpm (10/15/20 4:31 PM) 109 bpm *H* (10/15/20 10:19 AM) 114 bpm *H* (10/15/20 8:33 AM) Blood Pressure [90-138/55-84 mm Hg] 128/90mm Hg (10/15/20 4:31 PM) 130/95mm Hg (10/15/20 10:19 AM) 144/99mm Hg *H* (10/15/20 8:33 AM) Respiratory Rate [16-30 br/min] 18 br/min (10/15/20 4:31 PM) 18 br/min (10/15/20 10:19 AM) 18 br/min (10/15/20 8:33 AM) Temperature [96.8-100.4 DegF] 98.5 DegF (10/15/20 10:19 AM) 99.8 DegF (10/15/20 8:33 AM) Mode of Delivery (Oxygen) Room air (10/15/20 4:31 PM) Room air (10/15/20 10:19 AM) Room air (10/15/20 8:33 AM) Blood pressure sites Arm, left (10/15/20 4:31 PM) Arm, left (10/15/20 10:19 AM) Arm, left (10/15/20 8:33 AM) Temperature Route Oral (10/15/20 10:19 AM) Oral (10/15/20 8:33 AM) Social History Social History Type Response Smoking Status Current every day conrad cagle entered on: 06/19/14 Sex
--- OUTSIDE RECORDS SUMMARY | 2024-04-07 12:48 | XMS_ITS | Continuity of Care Document ---
Author Organization [facility] Address Unknown Care Team Providers Care Business Development Engineer Name Role Phone Tavon Lewis NP Primary Care Physician [id number] Date(s): 01/10/22 - 02/09/22 [facility] Allergies, Adverse Reactions, Alerts No Known Allergies [...] Route to Pharmacy Electronically, [facility], Partial fill upon patient request if the prescription is for a... Start Date: 04/12/21 Status: Ordered carBAMazepine 100 mg oral tablet, chewable 300 mg, 3, tablet, Chew, 2 times a day, # 180 tablet, Refills 1, Tot. Refills 1, Maintenance, 04/12/21 11:25:00 EDT, Route to Pharmacy Electronically, [facility], Partial fill upon patient request if the prescription is for a... Start Date: 04/12/21 Status: Ordered chlorproMAZINE 100 mg oral tablet = 100 mg, By Mouth, 4 times a day, PRN Agitation, # 60 tablet, 1 Refills, Maintenance, 04/12/21 11:25:00 EDT, Tablet, [facility]-, Partial fill upon patient request if the prescription is for a schedule II opioid drug., 175, cm... Start Date: 04/12/21 Status: Ordered divalproex sodium 250 mg oral tablet, extended release 3 tablet = 750 mg, By Mouth, Daily in AM, # 90 tablet, 0 Refills, Maintenance, 09/20/21 17:51:00 EST, ER Tablet, [facility]/pharmacy #[id number], Partial fill upon patient request if the prescription is for a schedule II opioid drug. Start Date: 09/20/21 Status: Ordered Haldol Decanoate decanoate 100 mg/ml injectable solution = 300 mg, Intramuscular, Once, next due on 04/23/2021, # 1 each, 1 Refills, Soft Stop, 04/12/21 11:25:00 EDT, [facility]-, Partial fill upon patient request if the prescriptionis for a schedule II opioid drug., 175, cm, ... Start Date: 04/12/21 Status: Ordered melatonin 10 mg oral capsule 1 capsule = 10 mg, By Mouth, Daily at bedtime, PRN Sleep, # 30 capsule, 1 Refills, Maintenance, 04/12/21 11:27:00 EDT, Capsule, [facility]-, Partial fill upon patient request if [...] 04/12/21 11:25:00 EDT, Tablet, [facility]-[id number], Partial fill upon patient request if the prescription is for a schedule II opioid drug., 175, cm, 04/09... Start Date: 04/12/21 Status: Ordered ZyPREXA 5 mg oral tablet 5 mg, 1, tablet, By Mouth, 2 times a day, # 30 tablet, Refills 0, Tot. Refills 0, Maintenance, 09/21/21 0:31:00 EST, Route to Pharmacy Electronically, [facility]/pharmacy #[id number], Partial fill upon patient request [...]
--- OUTSIDE RECORDS SUMMARY | 2024-04-07 12:48 | XMS_ITS | Continuity of Care Document ---
Author Organization [facility] Address [address] [facility], 3r d Floor, [address] [place] [address]- Care Team Providers Care Plant Facilities Technician Name Role Phone Not on Staff, PCP Primary Care Physician Unavail able Encounter [facility] [place] Date(s): 11/06/20 - 12/14/20 [facility] [address], [address], [address] [place] [id number] Attending Physician: Ronald Avila NP Admitting Physician: [...] 11/26/20 15:26:00 EDT, Route to Pharmacy Electronically, [facility]-, Partial fill upon patient request if the prescription is for... Start Date: 11/26/20 Stop Date: 12/24/20 Status: Ordered divalproex sodium 500 mg oral tablet, extended release 3 tablet = 1,500 mg, By Mouth, Daily at bedtime, # 90 tablet, 0 Refills, Maintenance, 10/09/20 10:39:00 EST, ER Tablet, [facility], Partial fill upon patient request if the prescription is for a schedule II opioid drug., 175.2... Start Date: 10/09/20 Stop Date: 11/08/20 Status: Ordered Haldol Decanoate decanoate 100 mg/ml injectable solution See Instructions, 300 mg Intramuscular Once every 4 weeks, next dose due on 12/19/2020. Dispense medication on the day of administration., # 1 each, 0 Refills, Soft Stop, 11/26/20 15:28:00 EDT, Solution, [facility]-, Partial jalil... Start Date: 11/26/20 Status: Ordered ZyPREXA 10 mg oral tablet 10 mg, 1, tablet, By Mouth, 2 times a day, # 28 tablet, Refills 1, Tot. Refills 1, Maintenance, 11/26/20 15:27:00 EDT, Route to Pharmacy Electronically, [facility]-, Partial fill upon patient request if the [...]
--- OUTSIDE RECORDS SUMMARY | 2024-04-07 12:48 | XMS_ITS | Continuity of Care Document ---
Author Organization [facility] ter Address [address] [place] [address]- Care Team Providers Care Harness Fitter Name Role Phone Vika TYLER, Dee Simms Primary Care Physician Encounter [facility] Date(s): 10/12/19 - 10/12/[address] [address]- [facility] Encounter Diagnosis Medication management(Final) - 10/12/19 Discharge Disposition: A-D/C Home Attending Physician: Leyal Dumont DO Admitting Physician: Leyla Dumont DO Referring Physician: Not on Staff, Referring [...] 07/12/19 12:02:10 EST, Route to Pharmacy Electronically, NCPDP_[id number], [facility], 176, cm, 07/12/19 7:31:19 EST, Height, 95, k... Start Date: 07/12/19 Stop Date: 08/23/19 Status: Ordered carBAMazepine 100 mg oral tablet, chewable 100 mg, 1, tablet, Chew, Daily at bedtime, # 30 tablet, Refills 0, Tot. Refills 0, Maintenance, 07/12/19 12:02:18 EST, Route to Pharmacy Electronically, NCPDP_[id number], [facility]-[id number], 176, cm, 07/12/19 7:31:19 EST, Height, 95,... Start Date: 07/12/19 Stop Date: 08/11/19 Status: Ordered Cogentin Tablet Refills 0, Maintenance, 07/14/19 10:45:23 EST Start Date: 07/14/19 Status: Ordered divalproex sodium 500 mg oral tablet, extended release 3 tablet = 1,500 mg, By Mouth, Daily, # 42 tablet, 2 Refills, Maintenance, 07/12/19 11:49:10 EST, ER Tablet, 176, cm, 07/12/19 7:31:19 EST, Height, [...] tablet, Refills 0, Tot. Refills 0, Maintenance, 07/12/19 12:02:20 EST, Route to Pharmacy Electronically, NCPDP_[id number], [facility]-[id number], 176, cm, 07/12/19 7:31:19 EST, Height, 95,... Start Date: 07/12/19 Stop Date: 08/11/19 Status: Ordered ZyPREXA 15 mg oral tablet [...] [Reference Range]: 1 Oxygen Saturation [94-100 %] 99 % (10/12/19 10:46 AM) Pulse Rate [55-90 bpm] 77 bpm (10/12/19 10:46 AM) Blood Pressure [90-138/55-84 mm Hg] 140/ 79mm Hg *H* (10/12/19 10:46 AM) Respiratory Rate [16-30 br/min] 16 br/mi n (10/12/19 10:46 AM) Temperature [96.8-100.4 DegF] 98.7 DegF (10/12/19 10:46 AM) Mode of Delivery (Oxygen) Room air (10/12/19 10:46 AM) Temperature Route Oral (10/12/19 10:46 AM) Social History Social History Type Response Smoking Status Current every day conrad cagle entered on: 06/19/14 Sex
--- OUTSIDE RECORDS SUMMARY | 2024-04-07 12:48 | XMS_ITS | Continuity of Care Document ---
Author Organization [facility] Address Unknown Care Team Providers Care Marker Maker Name Role Phone Tavon Lewis NP Primary Care Phys[id number] - 02/28/22 [facility] Allergies, Adverse Reactions, Alerts No Known [...] 04/12/21 11:24:00 EDT, Route to Pharmacy Electronically, [facility]-, Partial fill upon patient request if the prescription is for a... Start Date: 04/12/21 Status: Ordered carBAMazepine 100 mg oral tablet, chewable 300 mg, 3, tablet, Chew, 2 times a day, # 180 tablet, Refills 1, Tot. Refills 1, Maintenance, 04/12/21 11:25:00 EDT, Route to Pharmacy Electronically, [facility], Partial fill upon patient request if the prescription is for a... Start Date: 04/12/21 Status: Ordered chlorproMAZINE 100 mg oral tablet = 100 mg, By Mouth, 4 times a day, PRN Agitation, # 60 tablet, 1 Refills, Maintenance, 04/12/21 11:25:00 EDT, Tablet, [facility]-, Partial fill upon patient request if the prescription is for a schedule II opioid drug., 175, cm... Start Date: 04/12/21 Status: Ordered divalproex sodium 250 mg oral tablet, extended release 3 tablet = 750 mg, By Mouth, Daily in AM, # 90 tablet, 0 Refills, Maintenance, 09/20/21 17:51:00 EST, ER Tablet, [facility]/pharmacy #[id number], Partial fill upon patient request if the prescription is for a schedule II opioid drug. Start Date: 09/20/21 Status: Ordered Haldol Decanoate decanoate 100 mg/ml injectable solution = 300 mg, Intramuscular, Once, next due on 04/23/2021, # 1 each, 1 Refills, Soft Stop, 04/12/21 11:25:00 EDT, [facility], Partial fill upon patient request if the prescriptionis for a schedule II opioid drug., 175, cm, ... Start Date: 04/12/21 Status: Ordered melatonin 10 mg oral capsule 1 capsule = 10 mg, By Mouth, Daily at bedtime, PRN Sleep, # 30 capsule, 1 Refills, Maintenance, 04/12/21 11:27:00 EDT, Capsule, [facility]-, Partial fill upon patient request if the [...] 1 Refills, Maintenance, 04/12/21 11:25:00 EDT, Tablet, [facility], Partial fill upon patient request if the prescription is for a schedule II opioid drug., 175, cm, 04/09... Start Date: 04/12/21 Status: Ordered ZyPREXA 5 mg oral tablet 5 mg, 1, tablet, By Mouth, 2 times a day, # 30 tablet, Refills 0, Tot. Refills 0, Maintenance, 09/21/21 0:31:00 EST, Route to Pharmacy Electronically, [facility]/pharmacy #[id number], Partial fill upon patient request if the [...]
--- OUTSIDE RECORDS SUMMARY | 2024-04-07 12:48 | XMS_ITS | Continuity of Care Document ---
Author Organization [facility] Address [address] [place] [address]- Care Team Providers Care Zoning Technician Name Role Phone Vika TYLER, Dee Simms Primary Care Physician Encounter [facility] [place] Date(s): 04/20/20 - 04/21/[address] [address]- [facility] Encounter Diagnosis Marijuana intoxication(Final) - 04/21/20 Discharge Disposition: A-D/C Home Attending Physician: Gonzalo [...] 07/12/19 12:02:10 EST, Route to Pharmacy Electronically, NCPDP_[id number], [facility]-, 176, cm, 07/12/19 7:31:19 EST, Height, 95, k... Start Date: 07/12/19 Stop Date: 08/23/19 Status: Ordered carBAMazepine 100 mg oral tablet, chewable 100 mg, 1, tablet, Chew, Daily at bedtime, # 30 tablet, Refills 11, Tot. Refills 11, Maintenance, 11/14/19 9:35:00 EDT, Route to Pharmacy Electronically, [facility]-, 176, cm,09/13/19 9:56:00 EST, Height, 95, kg, 07/06/19 20:4... Start Date: 11/14/19 Status: Ordered Cogentin Tablet Refills 0, Maintenance, 07/14/19 10:45:23 EST Start Date: 07/14/19 Status: Ordered divalproex sodium 500 mg oral tablet, extended release 3 tablet = 1,500 mg, By Mouth, Daily, # 90 tablet, 11 Refills, Maintenance, 11/14/19 9:35:00 EDT, ER Tablet, [facility]-, 176, cm, 09/13/19 9:56:00 EST, Height, 95, [...] 11/14/19 9:35:00 EDT, Route to Pharmacy Electronically, [facility]-[id number], 176, cm, 09/13/19 9:56:00 EST, Height, 95, [...] 3 Oxygen Saturation [94-100 %] 99 % (04/21/20 6:34 AM) 97 % (04/21/20 5:15 AM) 98 % (04/20/20 11:42 PM) Pulse Rate [55-90 bpm] 63 bpm (04/21/20 6:34 AM) 69 bpm (04/21/20 5:15 AM) 100 bpm *H* (04/20/20 11:42 PM) Blood Pressure [90-138/55-84 mm Hg] 112/79mm Hg (04/21/20 6:34 AM) 124/78mm Hg (04/21/20 5:15 AM) 140/90mm Hg *H* (04/20/20 11:42 PM) Respiratory Rate [16-30 br/min] 16 br/min (04/21/20 6:34 AM) 18 br/min (04/21/20 5:15 AM) 20 br/min (04/20/20 11:42 PM) Temperature [96.8-100.4 DegF] 97.5 DegF (04/21/20 6:34 AM) 98.7 DegF (04/21/20 5:15 AM) 99.4 DegF (04/20/20 11:42 PM) Mode of Delivery (Oxygen) Room air (04/21/20 6:34 AM) Room air (04/21/20 5:15 AM) Room air (04/20/20 11:42 PM) Blood pressure sites Arm, left (04/21/20 5:15 AM) Arm, left (04/20/20 11:42 PM) Temperature Route Oral (04/21/20 6:34 AM) Oral (04/21/20 5:15 AM) Oral (04/20/20 11:42 PM) Social History Social History Type Response Smoking Status Current every day conrad cagle entered on: 06/19/14 Sex
--- OUTSIDE RECORDS SUMMARY | 2024-04-07 12:48 | XMS_ITS | Continuity of Care Document ---
Author Organization [facility] Address [address] [facility], [address]r d Floor, [address] [place] [address]- Care Team Providers Care Heat Sealing Machine Operator Name Role Phone Vika TYLER, Dee Simms Primary Care Physician [phone] Encounter [facility] Date(s): 07/01/19 - 08/27/19 [facility] [address], [address], [address] [place] [address]- [facility] Attending Physician: Floyd Ching MD Admitting Physician: [...] 07/12/19 12:02:10 EST, Route to Pharmacy Electronically, NCPDP_[id number], [facility]-, 176, cm, 07/12/19 7:31:19 EST, Height, 95, k... Start Date: 07/12/19 Stop Date: 08/23/19 Status: Ordered carBAMazepine 100 mg oral tablet, chewable 100 mg, 1, tablet, Chew, Daily at bedtime, # 30 tablet, Refills 0, Tot. Refills 0, Maintenance, 12/03/19 12:02:18 EST, Route to Pharmacy Electronically, NCPDP_[id number], [id number], 176, cm, 07/12/19 7:31:19 EST, Height, 95,... [...] 07/12/19 12:02:20 EST, Route to Pharmacy Electronically, NCPDP_[id number], [facility]-[id number], 176, cm, 07/12/19 7:31:19 EST, Height, 95,... [...]
--- OUTSIDE RECORDS SUMMARY | 2024-04-07 12:48 | XMS_ITS | Continuity of Care Document ---
Author Organization [facility] Address Unknown Care Team Providers Care Phlebotomist Prn Name Role Phone aTvon Lewis NP Primary Care Physician [phone] Encounter [facility] ACCT R [id number] Date(s): 10/29/21 - 11/28/21 [facility] Attending Physician: Gerry Li Admitting Physician: Gerry Li Referring Physician: Gerry Li Allergies, Adverse Reactions, Alerts No Known Allergies [...] 04/12/21 11:24:00 EDT, Route to Pharmacy Electronically, [facility], Partial fill upon patient request if the prescription is for a... Start Date: 04/12/21 Status: Ordered carBAMazepine 100 mg oral tablet, chewable 300 mg, 3, tablet, Chew, 2 times a day, # 180 tablet, Refills 1, Tot. Refills 1, Maintenance, 04/12/21 11:25:00 EDT, Route to Pharmacy Electronically, [facility], Partial fill upon patient request if the prescription is for a... Start Date: 04/12/21 Status: Ordered chlorproMAZINE 100 mg oral tablet = 100 mg, By Mouth, 4 times a day, PRN Agitation, # 60 tablet, 1 Refills, Maintenance, 04/12/21 11:25:00 EDT, Tablet, [facility], Partial fill upon patient request if the prescription is for a schedule II opioid drug., 175, cm... Start Date: 04/12/21 Status: Ordered divalproex sodium 250 mg oral tablet, extended release 3 tablet = 750 mg, By Mouth, Daily in AM, # 90 tablet, 0 Refills, Maintenance, 09/20/21 17:51:00 EST, ER Tablet, [facility]/pharmacy #[id number], Partial fill upon patient request if the prescription is for a schedule II opioid drug. Start Date: 09/20/21 Status: Ordered Haldol Decanoate decanoate 100 mg/ml injectable solution = 300 mg, Intramuscular, Once, next due on 04/23/2021, # 1 each, 1 Refills, Soft Stop, 04/12/21 11:25:00 EDT, [facility], Partial fill upon patient request if the prescriptionis for a schedule II opioid drug., 175, cm, ... Start Date: 04/12/21 Status: Ordered melatonin 10 mg oral capsule 1 capsule = 10 mg, By Mouth, Daily at bedtime, PRN Sleep, # 30 capsule, 1 Refills, Maintenance, 04/12/21 11:27:00 EDT, Capsule, [facility]-, Partial fill upon patient request if [...] 1 Refills, Maintenance, 04/12/21 11:25:00 EDT, Tablet, [facility]-, Partial fill upon patient request if the prescription is for a schedule II opioid drug., 175, cm, 04/09... Start Date: 04/12/21 Status: Ordered ZyPREXA 5 mg oral tablet 5 mg, 1, tablet, By Mouth, 2 times a day, # 30 tablet, Refills 0, Tot. Refills 0, Maintenance, 09/21/21 0:31:00 EST, Route to Pharmacy Electronically, [facility]/pharmacy #[id number], Partial fill upon patient request if the [...]
--- OUTSIDE RECORDS SUMMARY | 2024-04-07 12:48 | XMS_ITS | Continuity of Care Document ---
Author Organization [facility] Address Unknown Care Team Providers Care Vocational Training Teacher Name Role Phone Joshua TYLER, Tavon Primary Care Physician [id number] Date(s): 11/01/21 - 03/01/22 [facility] Attending Physician: Floyd Ching MD [...] 04/12/21 11:24:00 EDT, Route to Pharmacy Electronically, [facility]-, Partial fill upon patient request if the prescription is for a... Start Date: 04/12/21 Status: Ordered carBAMazepine 100 mg oral tablet, chewable 300 mg, 3, tablet, Chew, 2 times a day, # 180 tablet, Refills 1, Tot. Refills 1, Maintenance, 04/12/21 11:25:00 EDT, Route to Pharmacy Electronically, [facility], Partial fill upon patient request if the prescription is for a... Start Date: 04/12/21 Status: Ordered chlorproMAZINE 100 mg oral tablet = 100 mg, By Mouth, 4 times a day, PRN Agitation, # 60 tablet, 1 Refills, Maintenance, 04/12/21 11:25:00 EDT, Tablet, [facility]-, Partial fill upon patient request if the prescription is for a schedule II opioid drug., 175, cm... Start Date: 04/12/21 Status: Ordered divalproex sodium 250 mg oral tablet, extended release 3 tablet = 750 mg, By Mouth, Daily in AM, # 90 tablet, 0 Refills, Maintenance, 09/20/21 17:51:00 EST, ER Tablet, [facility]/pharmacy #[id number], Partial fill upon patient request if the prescription is for a schedule II opioid drug. Start Date: 09/20/21 Status: Ordered Haldol Decanoate decanoate 100 mg/ml injectable solution = 300 mg, Intramuscular, Once, next due on 04/23/2021, # 1 each, 1 Refills, Soft Stop, 04/12/21 11:25:00 EDT, [facility], Partial fill upon patient request if the prescriptionis for a schedule II opioid drug., 175, cm, ... Start Date: 04/12/21 Status: Ordered melatonin 10 mg oral capsule 1 capsule = 10 mg, By Mouth, Daily at bedtime, PRN Sleep, # 30 capsule, 1 Refills, Maintenance, 04/12/21 11:27:00 EDT, Capsule, [facility]-, Partial fill upon patient request if [...] 1 Refills, Maintenance, 04/12/21 11:25:00 EDT, Tablet, [facility]-, Partial fill upon patient request if the prescription is for a schedule II opioid drug., 175, cm, 04/09... Start Date: 04/12/21 Status: Ordered ZyPREXA 5 mg oral tablet 5 mg, 1, tablet, By Mouth, 2 times a day, # 30 tablet, Refills 0, Tot. Refills 0, Maintenance, 09/21/21 0:31:00 EST, Route to Pharmacy Electronically, [facility]/pharmacy #[id number], Partial fill upon patient request if the [...]
--- OUTSIDE RECORDS SUMMARY | 2024-04-07 12:48 | XMS_ITS | Continuity of Care Document ---
Author Organization [facility] Address [address] [facility], [address] Floor, [address] [place] [address]- Care Team Providers Care State Tested Nursing Assistant Name Role Phone Vika TYLER, Dee Simms Primary Care Physician Encounter [facility] Date(s): 11/18/19 - 03/17/20 [facility] [address] [place], [address]rd Floor, [address] [place] [address]- [facility] Attending Physician: Floyd Ching MD [...] 07/12/19 12:02:10 EST, Route to Pharmacy Electronically, [id number]_[id number], [facility]-, 176, cm, 07/12/19 7:31:19 EST, Height, 95, k... Start Date: 07/12/19 Stop Date: 08/23/19 Status: Ordered carBAMazepine 100 mg oral tablet, chewable 100 mg, 1, tablet, Chew, Daily at bedtime, # 30 tablet, Refills 11, Tot. Refills 11, Maintenance, 11/14/19 9:35:00 EDT, Route to Pharmacy Electronically, [facility]-, 176, cm,09/13/19 9:56:00 EST, Height, 95, kg, 07/06/19 20:4... Start Date: 11/14/19 Status: Ordered Cogentin Tablet Refills 0, Maintenance, 07/14/19 10:45:23 EST Start Date: 07/14/19 Status: Ordered divalproex sodium 500 mg oral tablet, extended release 3 tablet = 1,500 mg, By Mouth, Daily, # 90 tablet, 11 Refills, Maintenance, 11/14/19 9:35:00 EDT, ER Tablet, [facility], 176, cm, 09/13/19 9:56:00 EST, Height, 95, [...] 11/14/19 9:35:00 EDT, Route to Pharmacy Electronically, [facility], 176, cm, 09/13/19 9:56:00 EST, Height, 95, [...]
--- OUTSIDE RECORDS SUMMARY | 2024-04-07 12:48 | XMS_ITS | Continuity of Care Document ---
Author Organization [facility] Address [address] [place], [address] Floor, [address] [place] [address]- Care Team Providers Care Material Combiner Name Role Phone Not on Staff, PCP Primary Care Physician Unavail able [place] [facility] [place] Date[place]s): 11/08/20 - 12/14/20 [facility] [address], [address], [address] [place] [id number] Attending Physician: Ronald Avila NP Admitting Physician: [...] 11/26/20 15:26:00 EDT, Route to Pharmacy Electronically, [facility]-, Partial fill upon patient request if the prescription is for... Start Date: 11/26/20 Stop Date: 12/24/20 Status: Ordered divalproex sodium 500 mg oral tablet, extended release 3 tablet = 1,500 mg, By Mouth, Daily at bedtime, # 90 tablet, 0 Refills, Maintenance, 10/09/20 10:39:00 EST, ER Tablet, [facility], Partial fill upon patient request if [...] Refills, Soft Stop, 11/26/20 15:28:00 EDT, Solution, [facility]-, Partial jalil... Start Date: 11/26/20 Status: Ordered ZyPREXA 10 mg oral tablet 10 mg, 1, tablet, By Mouth, 2 times a day, # 28 tablet, Refills 1, Tot. Refills 1, Maintenance, 11/26/20 15:27:00 EDT, Route to Pharmacy Electronically, [facility]-, Partial fill upon patient request if [...]
--- OUTSIDE RECORDS SUMMARY | 2024-04-07 12:48 | XMS_ITS | Continuity of Care Document ---
Author Organization [facility] ter Address [address] [place] [address]- Care Team Providers Care Supervisor [employer] Name Role Phone Joshua TYLER, Tavon Primary Care Physician Encounter [facility] Date(s): 12/14/21 - 12/16/[address] [address] Encounter Diagnosis Homelessness(Final) - 12/14/21 Discharge Disposition: A-D/C AMA Attending Physician: Everardo Dasilva DO Admitting Physician: Everardo Dasilva DO Referring Physician: Not on Staff, Referring [...] 04/12/21 11:24:00 EDT, Route to Pharmacy Electronically, [facility], Partial fill upon patient request if the prescription is for a... Start Date: 04/12/21 Status: Ordered carBAMazepine 100 mg oral tablet, chewable 300 mg, 3, tablet, Chew, 2 times a day, # 180 tablet, Refills 1, Tot. Refills 1, Maintenance, 04/12/21 11:25:00 EDT, Route to Pharmacy Electronically, [facility]-, Partial fill upon patient request if the prescription is for a... Start Date: 04/12/21 Status: Ordered chlorproMAZINE 100 mg oral tablet = 100 mg, By Mouth, 4 times a day, PRN Agitation, # 60 tablet, 1 Refills, Maintenance, 04/12/21 11:25:00 EDT, Tablet, [facility], Partial fill upon patient request if the prescription is for a schedule II opioid drug., 175, cm... Start Date: 04/12/21 Status: Ordered divalproex sodium 250 mg oral tablet, extended release 3 tablet = 750 mg, By Mouth, Daily in AM, # 90 tablet, 0 Refills, Maintenance, 09/20/21 17:51:00 EST, ER Tablet, [facility]/pharmacy #[id number], Partial fill upon patient request if the prescription is for a schedule II opioid drug. Start Date: 09/20/21 Status: Ordered Haldol Decanoate decanoate 100 mg/ml injectable solution = 300 mg, Intramuscular, Once, next due on 04/23/2021, # 1 each, 1 Refills, Soft Stop, 04/12/21 11:25:00 EDT, [facility], Partial fill upon patient request if the prescriptionis for a schedule II opioid drug., 175, cm, ... Start Date: 04/12/21 Status: Ordered melatonin 10 mg oral capsule 1 capsule = 10 mg, By Mouth, Daily at bedtime, PRN Sleep, # 30 capsule, 1 Refills, Maintenance, 04/12/21 11:27:00 EDT, Capsule, [facility]-, Partial fill upon patient request [...] 1 Refills, Maintenance, 04/12/21 11:25:00 EDT, Tablet, [facility]-, Partial fill upon patient request if the prescription is for a schedule II opioid drug., 175, cm, 04/09... Start Date: 04/12/21 Status: Ordered ZyPREXA 5 mg oral tablet 5 mg, 1, tablet, By Mouth, 2 times a day, # 30 tablet, Refills 0, Tot. Refills 0, Maintenance, 09/21/21 0:31:00 EST, Route to Pharmacy Electronically, [facility]/pharmacy #[id number], Partial fill upon patient request [...] Exam Date Time Procedure Performing Provider Status 12/14/21 11:30 AM Chest Portable Rody Macias; Auth (Verified) Notes: (Chest Portable) Reason For Exam: Shortness of Breath RESULT: Chest Portable AP upright portable chest dated December 24, 2021 at 1121 hours. Comparison films are from October 20162021. HISTORY: Shortness of breath. FINDINGS: The cardiac silhouette is within normal limits for size. Hilar and mediastinal structuresare unremarkable. No airspace infiltrate or pleural effusion is identified. Visualized osseous structures are unremarkable. IMPRESSION: No evidence of acute pulmonary disease. Examination 25200. Thank you for allowing me to participate in the care of this patient. WSN: [id number] Ordering Physician: Jessica Mccallum Dictated By: Nicolas Bradford MD Dictated Date/Time: 12/14/21 11:54 a Reviewed By: Nicolas Bradford MD Signed By: Nicolas Bradford MD Signed Date/Time: 12/14/21 11:54 am Transcribed By: CISCO Transcribed Date/Time: 12/14/21 11:54 am Vital Signs Most recent to oldest [Reference Range]: 1 2 3 Weight 84 kg (12/14/21 10:50 AM) 84 kg (12/14/21 8:34 AM) Oxygen Saturation [94-100 %] 100 % (12/15/21 11:21 AM) 96 % (12/15/21 7:54 AM) 96 % (12/15/21 4:17 AM) Pulse Rate [55-90 bpm] 89 bpm (12/15/21 11:57 PM) 78 bpm (12/15/21 11:21 AM) 72 bpm (12/15/21 7:54 AM) Blood Pressure [90-138/55-84 mm Hg] 122/84mm Hg (12/15/21 11:57 PM) 124/72mm Hg (12/15/21 11:21 AM) 130/78mm Hg (12/15/21 7:54 AM) Respiratory Rate [16-30 br/min] 17 br/min (12/15/21 11:21 AM) 18 br/min (12/15/21 7:54 AM) 20 br/min (12/15/21 4:17 AM) Temperature [96.8-100.4 DegF] 99.1 DegF (12/15/21 11:21 AM) 98.1 DegF (12/15/21 7:54 AM) 98.9 DegF (12/15/21 4:17 AM) Liters per Minute 2 L/min (12/14/21 2:30 PM) 2 L/min (12/14/21 1:00 PM) 2 L/min (12/14/21 12:30 PM) Mode of Delivery (Oxygen) Room air (12/15/21 11:21 AM) Room air (12/15/21 7:54 AM) Room air (12/15/21 4:17 AM) Blood pressure sites Arm, right (12/15/21 11:57 PM) Arm, right (12/15/21 11:21 AM) Arm, left (12/15/21 7:54 AM) Temperature Route Temporal (12/15/21 11:21 AM) Temporal (12/15/21 7:54 AM) Oral (12/15/21 4:17 AM) Social History Social History Type Response Smoking Status Current every day conrad cagle entered on: 06/19/14 Sex
--- OUTSIDE RECORDS SUMMARY | 2024-04-07 12:48 | XMS_ITS | Continuity of Care Document ---
Author Organization [facility] Address [address] [place] [address]- Care Team Providers Care Clean In Places Operator Name Role Phone Joshua TYLER, Tavon Primary Care Physician [phone] Encounter [facility] [place] Date(s): 07/18/21 - 07/20/[address] [address]- Encounter Diagnosis Psychosis(Final) - 07/18/21 Discharge Disposition: A-D/C Home Attending Physician: Adrianna St DO Admitting Physician: Adrianna St DO Referring Physician: Not on Staff, Referring [...] 04/12/21 11:24:00 EDT, Route to Pharmacy Electronically, [facility], Partial fill upon patient request if the prescription is for a... Start Date: 04/12/21 Status: Ordered carBAMazepine 100 mg oral tablet, chewable 300 mg, 3, tablet, Chew, 2 times a day, # 180 tablet, Refills 1, Tot. Refills 1, Maintenance, 04/12/21 11:25:00 EDT, Route to Pharmacy Electronically, [facility], Partial fill upon patient request if the prescription is for a... Start Date: 04/12/21 Status: Ordered chlorproMAZINE 100 mg oral tablet = 100 mg, By Mouth, 4 times a day, PRN Agitation, # 60 tablet, 1 Refills, Maintenance, 04/12/21 11:25:00 EDT, Tablet, [facility], Partial fill upon patient request if the prescription is for a schedule II opioid drug., 175, cm... Start Date: 04/12/21 Status: Ordered Haldol Decanoate decanoate 100 mg/ml injectable solution = 300 mg, Intramuscular, Once, next due on 04/23/2021, # 1 each, 1 Refills, Soft Stop, 04/12/21 11:25:00 EDT, [facility], Partial fill upon patient request if the prescriptionis for a schedule II opioid drug., 175, cm, ... Start Date: 04/12/21 Status: Ordered melatonin 10 mg oral capsule 1 capsule = 10 mg, By Mouth, Daily at bedtime, PRN Sleep, # 30 capsule, 1 Refills, Maintenance, 04/12/21 11:27:00 EDT, Capsule, [facility], Partial fill upon patient request if the prescription is for a schedule II opioid drug... Start Date: 04/12/21 Status: Ordered olanzapine 15 mg oral tablet 1 tablet = 15 mg, By Mouth, 2 times a day, # 60 tablet, 1 Refills, Maintenance, 04/12/21 11:25:00 EDT, Tablet, [facility], Partial fill upon patient request if the [...] 3 Oxygen Saturation [94-100 %] 99 % (07/19/21 7:55 PM) 99 % (07/19/21 2:31 PM) 99 % (07/19/21 3:02 AM) Pulse Rate [55-90 bpm] 78 bpm (07/19/21 7:55 PM) 80 bpm (07/19/21 2:31 PM) 99 bpm *H* (07/19/21 3:02 AM) Blood Pressure [90-138/55-84 mm Hg] 128/82mm Hg (07/19/21 7:55 PM) 139/87mm Hg *H* (07/19/21 2:31 PM) 138/86mm Hg (07/19/21 3:02 AM) Respiratory Rate [16-30 br/min] 16 br/min (07/19/21 7:55 PM) 18 br/min (07/19/21 2:31 PM) 16 br/min (07/19/21 3:02 AM) Temperature [96.8-100.4 DegF] 98.5 DegF (07/19/21 7:55 PM) 99.2 DegF (07/19/21 2:31 PM) 98.8 DegF (07/19/21 3:02 AM) Mode of Delivery (Oxygen) Room air (07/19/21 7:55 PM) Room air (07/19/21 2:31 PM) Room air (07/19/21 3:02 AM) Blood pressure sites Arm, right (07/19/21 7:55 PM) Arm, left (07/19/21 2:31 PM) Arm, right (07/19/21 3:02 AM) Temperature Route Oral (07/19/21 7:55 PM) Oral (07/19/21 2:31 PM) Oral (07/19/21 3:02 AM) Social History Social History Type Response Smoking Status Current every day conrad cagle entered on: 06/19/14 Sex
--- OUTSIDE RECORDS SUMMARY | 2024-04-07 12:48 | XMS_ITS | Continuity of Care Document ---
Author Organization [facility] Address [address] [place] [address]- Care Team Providers Care Program Paraprofessional Name Role Phone Joshua TYLER, Tavon Primary Care Physician [phone] Encounter [facility] Date(s): 11/03/21 - 11/03/[address] [address]- Discharge Disposition: A-D/C AMA Attending Physician: Conrado Trevino MD Admitting Physician: Deja Cook MD Referring Physician: Not on Staff, Referring [...] 04/12/21 11:24:00 EDT, Route to Pharmacy Electronically, [facility], Partial fill upon patient request if the prescription is for a... Start Date: 04/12/21 Status: Ordered carBAMazepine 100 mg oral tablet, chewable 300 mg, 3, tablet, Chew, 2 times a day, # 180 tablet, Refills 1, Tot. Refills 1, Maintenance, 04/12/21 11:25:00 EDT, Route to Pharmacy Electronically, [facility]-, Partial fill upon patient request if the prescription is for a... Start Date: 04/12/21 Status: Ordered chlorproMAZINE 100 mg oral tablet = 100 mg, By Mouth, 4 times a day, PRN Agitation, # 60 tablet, 1 Refills, Maintenance, 04/12/21 11:25:00 EDT, Tablet, [facility]-, Partial fill upon patient request if the prescription is for a schedule II opioid drug., 175, cm... Start Date: 04/12/21 Status: Ordered divalproex sodium 250 mg oral tablet, extended release 3 tablet = 750 mg, By Mouth, Daily in AM, # 90 tablet, 0 Refills, Maintenance, 09/20/21 17:51:00 EST, ER Tablet, [facility]/pharmacy #[id number], Partial fill upon patient request if the prescription is for a schedule II opioid drug. Start Date: 09/20/21 Status: Ordered Haldol Decanoate decanoate 100 mg/ml injectable solution = 300 mg, Intramuscular, Once, next due on 04/23/2021, # 1 each, 1 Refills, Soft Stop, 04/12/21 11:25:00 EDT, [facility]-, Partial fill upon patient request if the prescriptionis for a schedule II opioid drug., 175, cm, ... Start Date: 04/12/21 Status: Ordered melatonin 10 mg oral capsule 1 capsule = 10 mg, By Mouth, Daily at bedtime, PRN Sleep, # 30 capsule, 1 Refills, Maintenance, 04/12/21 11:27:00 EDT, Capsule, [facility]-, Partial fill upon patient request [...] 1 Refills, Maintenance, 04/12/21 11:25:00 EDT, Tablet, [facility]-, Partial fill upon patient request if the prescription is for a schedule II opioid drug., 175, cm, 04/09... Start Date: 04/12/21 Status: Ordered ZyPREXA 5 mg oral tablet 5 mg, 1, tablet, By Mouth, 2 times a day, # 30 tablet, Refills 0, Tot. Refills 0, Maintenance, 09/21/21 0:31:00 EST, Route to Pharmacy Electronically, [facility]/pharmacy #[id number], Partial fill upon patient request if [...] Exam Date Time Procedure Performing Provider Status 11/03/21 12:08 PM Chest Portable Taylor Cornelius; Aut h (Verified) Notes: (Chest Portable) Reason For Exam: Shortness of Breath RESULT: Chest Portable Chest Portable Hx of Present Illness: Pt family called 911 for seizure, has not taken any of his medications in past month, pt seizing upon arrival to ED and placement in room; Reason: Shortness of Breath; ClinicalQuestion(s): CHF COMPARISON: 09/20/2021 FINDINGS: LINES AND TUBES: None. LUNGS AND PLEURA: Limited by low lung volumes and rotation. No definite consolidation or pulmonary edema. HEART, MEDIASTINUM AND MARY: Heart is normal in size. Normal upper mediastinal and hilar contour. BONES AND SOFT TISSUES: No acute abnormality. IMPRESSION: No acute abnormality. WSN: [id number] Ordering Physician: Jodi Hilton Dictated By: Gregory Rizo MD Dictated Date/Time: 11/03/21 12:35 p Reviewed By: Gregory Rizo MD Signed By: Gregory Rizo MD Signed Date/Time: 11/03/21 12:35 pm Transcribed By: CISCO Transcribed Date/Time: 11/03/21 12:33 pm Vital Signs Most recent to oldest [Reference Range]: 1 2 3 Oxygen Saturation [94-100 %] 98 % (11/03/21 6:07 PM) 97 % (11/03/21 3:41 PM) 100 % (11/03/21 2:30 PM) Pulse Rate [55-90 bpm] 91 bpm *H* (11/03/21 6:07 PM) 94 bpm *H* (11/03/21 4:33 PM) 94 bpm *H* (11/03/21 3:41 PM) Blood Pressure [90-138/55-84 mm Hg] 139/95mm Hg *H* (11/03/21 6:07 PM) 133/85mm Hg (11/03/21 4:33 PM) 130/83mm Hg (11/03/21 3:41 PM) Respiratory Rate [16-30 br/min] 20 br/min (11/03/21 6:07 PM) 19 br/min (11/03/21 4:33 PM) 16 br/min (11/03/21 3:41 PM) Temperature [96.8-100.4 DegF] 98.9 DegF (11/03/21 4:33 PM) 99.2 DegF (11/03/21 11:38 AM) 99.2 DegF (11/03/21 9:56 AM) Liters per Minute 15 L/min (11/03/21 10:05 AM) 15 L/min (11/03/21 9:56 AM) Mode of Delivery (Oxygen) Room air (11/03/21 6:07 PM) Room air (11/03/21 3:41 PM) Room air (11/03/21 2:30 PM) Blood pressure sites Arm, left (11/03/21 6:07 PM) Arm, left (11/03/21 4:33 PM) Arm, left (11/03/21 3:41 PM) Temperature Route Oral (11/03/21 4:33 PM) Axillary (11/03/21 11:38 AM) Axillary (11/03/21 9:56 AM) Social History Social History Type Response Smoking Status Current every day conrad cagle entered on: 06/19/14 Sex
--- OUTSIDE RECORDS SUMMARY | 2024-04-07 12:48 | XMS_ITS | Continuity of Care Document ---
Author Organization [facility] ter Address [address] [place] [address]- Care Team Providers Care Stenotype Operator Name Role Phone Not on Staff, PCP Primary Care Physician Unavail able Encounter [facility] [place] Date(s): 01/17/22 - 01/17/[address] [address]- Encounter Diagnosis Psychiatric problem(Final) - 01/17/22 Discharge Disposition: A-D/C Home Attending Physician: Ahmet Olmos DO Admitting Physician: Ahmet Olmos DO Referring Physician: Not on Staff, Referring [...] 09/20/21 17:51:00 EST, ER Tablet, [facility]/pharmacy #[id number], Partial fill upon patient request if the prescription is for a schedule II opioid drug. Start Date: 09/20/21 Status: Ordered Haldol Decanoate decanoate 100 mg/ml injectable solution = 300 mg, Intramuscular, Once, next due on 04/23/2021, # 1 each, 1 Refills, Soft Stop, 04/12/21 11:25:00 EDT, [facility]-, Partial fill [...] EST, Route to Pharmacy Electronically, [facility]/pharmacy #[id number], Partial fill upon patient request if the [...] 2 Oxygen Saturation [94-100 %] 100 % (01/17/22 3:27 PM) 99 % (01/17/22 12:18 PM) Pulse Rate [55-90 bpm] 60 bpm (01/17/22 3:27 PM) 69 bpm (01/17/22 12:18 PM) Blood Pressure [90-138/55-84 mm Hg] 124/ 78mm Hg (01/17/22 3:27 PM) 132/73mm Hg (01/17/22 12:18 PM) Respiratory Rate [16-30 br/min] 15 br/mi n *L* (01/17/22 3:27 PM) 18 br/min (01/17/22 12:18 PM) Temperature [96.8-100.4 DegF] 98.0 DegF (01/17/22 3:27 PM) 98.4 DegF (01/17/22 12:18 PM) Mode of Delivery (Oxygen) Room air (01/17/22 3:27 PM) Room air (01/17/22 12:18 PM) Blood pressure sites Arm, left (01/17/22 3:27 PM) Arm, right (01/17/22 12:18 PM) Temperature Route Oral (01/17/22 3:27 PM) Oral (01/17/22 12:18 PM) Social History Social History Type Response Smoking Status Current every day conrad cagle entered on: 06/19/14 Sex
--- OUTSIDE RECORDS SUMMARY | 2024-04-07 12:48 | XMS_ITS | Continuity of Care Document ---
Author Organization [facility] Address [address] [place] [id number]- Care Team Providers Care Hand Bunch Maker Name Role Phone Not on Staff, PCP Primary Care Physician Unavail able Encounter [facility] [place] Date(s): 08/13/20 - 08/20/[address] [address]- Encounter Diagnosis Schizoaffective, bipolar disorder(Final) - 08/13/20 Discharge Disposition: A-D/C Home Attending Physician: Kartik Kenyon MD Admitting Physician: Kartik Kenyon MD Referring Physician: Not on Staff, Referring [...] 07/12/19 12:02:10 EST, Route to Pharmacy Electronically, NCPDP_[id number], [facility]-[id number], 176, cm, 07/12/19 7:31:19 EST, Height, 95, k... Start Date: 07/12/19 Stop Date: 08/23/19 Status: Ordered Haldol Decanoate decanoate 100 mg/ml injectable solution See Instructions, 300 mg Intramuscular Once, next dose on 12/25, may be given before or after 3 [...] 08/20/20 11:50:00 EST, Route to Pharmacy Electronically, [facility], Partialfill upon patient request if the prescription is fo... Start Date: 08/20/20 Stop Date: 08/27/20 Status: Ordered Problem List Condition Effective Dates Status Health Status Inform ant Bipolar disorder(Confirmed) Active Epileptic seizure, generalized(Confirmed) Active Generalized seizure(Confirmed) Active Seizure disorder(Confirmed) Active Tobacco dependence(Confirmed) Active Vital Signs Most recent to oldest [Reference Range]: 1 2 3 Oxygen Saturation [94-100 %] 94 % (08/20/20 4:34 AM) 98 % (08/19/20 8:32 PM) 100 % (08/19/20 4:20 PM) Pulse Rate [55-90 bpm] 65 bpm (08/20/20 4:34 AM) 115 bpm *H* (08/19/20 8:32 PM) 100 bpm *H* (08/19/20 4:20 PM) Blood Pressure [90-138/55-84 mm Hg] 109/81mm Hg (08/20/20 4:34 AM) 118/66mm Hg (08/19/20 8:32 PM) 108/68mm Hg (08/19/20 4:20 PM) Respiratory Rate [16-30 br/min] 18 br/min (08/20/20 4:34 AM) 16 br/min (08/19/20 8:32 PM) 18 br/min (08/19/20 4:20 PM) Temperature [96.8-100.4 DegF] 97.4 DegF (08/20/20 4:34 AM) 98.3 DegF (08/19/20 8:32 PM) 98 DegF (08/19/20 4:20 PM) Mode of Delivery (Oxygen) Room air (08/20/20 4:34 AM) Room air (08/19/20 8:32 PM) Room air (08/19/20 4:20 PM) Blood pressure sites Arm, left (08/20/20 4:34 AM) Arm, right (08/19/20 8:32 PM) Arm, right (08/19/20 4:20 PM) Temperature Route Oral (08/20/20 4:34 AM) Oral (08/19/20 8:32 PM) Oral (08/19/20 4:20 PM) Social History Social History Type Response Smoking Status Current every day conrad cagle entered on: 06/19/14 Sex
--- OUTSIDE RECORDS SUMMARY | 2024-04-07 12:48 | XMS_ITS | Continuity of Care Document ---
Author Organization [facility] ter Address [address] [place] [id number]- Care Team Providers Care Website Designer Name Role Phone Vika TYLER, Dee Simms Primary Care Physician [place] [facility] [place] Date(s): 10/17/19 - 10/17/[address] [address]- [facility] Encounter Diagnosis Fall(Final) - 10/17/19 Discharge Disposition: A-D/C Home Attending Physician: Elmo Lay MD Admitting Physician: Elmo Lay MD Referring Physician: Not on Staff, Referring [...] 07/12/19 12:02:10 EST, Route to Pharmacy Electronically, NCPDP_[id number], [facility], 176, cm, 07/12/19 7:31:19 EST, Height, 95, k... Start Date: 07/12/19 Stop Date: 08/23/19 Status: Ordered carBAMazepine 100 mg oral tablet, chewable 100 mg, 1, tablet, Chew, Daily at bedtime, # 30 tablet, Refills 0, Tot. Refills 0, Maintenance, 07/12/19 12:02:18 EST, Route to Pharmacy Electronically, NCPDP_[id number], [facility]-[id number], 176, cm, 07/12/19 7:31:19 EST, Height, 95,... [...] 07/12/19 12:02:20 EST, Route to Pharmacy Electronically, [id number]_[id number], [facility]-[id number], 176, cm, 07/12/19 7:31:19 EST, Height, 95,... [...] Range]: 1 2 Oxygen Saturation [94-100 %] 98 % (10/17/19 12:10 PM) 98 % (10/17/19 11:33 AM) Pulse Rate [55-90 bpm] 95 bpm *H* (10/17/19 12:10 PM) 103 bpm *H* (10/17/19 11:33 AM) Blood Pressure [90-138/55-84 mm Hg] 130/ 85mm Hg (10/17/19 12:10 PM) 148/89mm Hg *H* (10/17/19 11:33 AM) Respiratory Rate [16-30 br/min] 22 br/mi n (10/17/19 12:10 PM) 24 br/min (10/17/19 11:33 AM) Temperature [96.8-100.4 DegF] 98.9 DegF (10/17/19 11:33 AM) Mode of Delivery (Oxygen) Room air (10/17/19 12:10 PM) Room air (10/17/19 11:33 AM) Blood pressure sites Arm, right (10/17/19 12:10 PM) Arm, left (10/17/19 11:33 AM) Temperature Route Oral (10/17/19 11:33 AM) Social History Social History Type Response Smoking Status Current every day conrad cagle entered on: 06/19/14 Sex
--- OUTSIDE RECORDS SUMMARY | 2024-04-07 12:48 | XMS_ITS | Continuity of Care Document ---
Author Organization [facility] ter Address [address] [place] [address]- Care Team Providers Care Automation And Control Engineer Name Role Phone Not on Staff, PCP Primary Care Physician Unavail able Encounter [facility] [place] Date(s): 02/15/21 - 02/19/[address] [address]- Discharge Disposition: Transfer to [facility] Facility Attending Physician: Kimi Narayan MD Admitting Physician: Kimi Narayan MD Referring Physician: Not on Staff, Referring [...] 11/26/20 15:26:00 EDT, Route to Pharmacy Electronically, [facility]-, Partial fill upon patient request if the prescription is for... Start Date: 11/26/20 Stop Date: 12/24/20 Status: Ordered divalproex sodium 500 mg oral tablet, extended release 3 tablet = 1,500 mg, By Mouth, Daily at bedtime, # 90 tablet, 0 Refills, Maintenance, 10/09/20 10:39:00 EST, ER Tablet, [facility]- , Partial fill upon patient request if the prescription is for a schedule II opioid drug., 175.2... Start Date: 10/09/20 Stop Date: 11/08/20 Status: Ordered Haldol Decanoate decanoate 100 mg/ml injectable solution See Instructions, 300 mg Intramuscular Once every 4 weeks, next dose due on 12/19/2020. Dispense medication on the day of administration., # 1 each, 0 Refills, Soft Stop, 11/26/20 15:28:00 EDT, Solution, [facility]-, Partial jalil... Start Date: 11/26/20 Status: Ordered ZyPREXA 10 mg oral tablet 10 mg, 1, tablet, By Mouth, 2 times a day, # 28 tablet, Refills 1, Tot. Refills 1, Maintenance, 11/26/20 15:27:00 EDT, Route to Pharmacy Electronically, [facility]-, Partial fill upon patient request if the prescription is for... Start Date: 11/26/20 Stop Date: 12/24/20 Status: Ordered Problem List Condition Effective Dates Status Health Status Inform ant Bipolar disorder(Confirmed) Active Epileptic seizure, generalized(Confirmed) Active Generalized seizure(Confirmed) Active Seizure disorder(Confirmed) Active Tobacco dependence(Confirmed) Active Vital Signs Most recent to oldest [Reference Range]: 1 2 3 Oxygen Saturation [94-100 %] 100 % (02/19/21 12:25 PM) 98 % (02/19/21 7:00 AM) 99 % (02/18/21 11:36 PM) Pulse Rate [55-90 bpm] 111 bpm *H* (02/19/21 12:25 PM) 62 bpm (02/19/21 7:00 AM) 105 bpm *H* (02/18/21 11:36 PM) Blood Pressure [90-138/55-84 mm Hg] 150/87mm Hg *H* (02/19/21 12:25 PM) 127/87mm Hg (02/19/21 7:00 AM) 141/87mm Hg *H* (02/18/21 11:36 PM) Respiratory Rate [16-30 br/min] 18 br/min (02/19/21 12:25 PM) 16 br/min (02/19/21 7:00 AM) 17 br/min (02/18/21 11:36 PM) Temperature [96.8-100.4 DegF] 98 DegF (02/19/21 12:25 PM) 97.7 DegF (02/19/21 7:00 AM) 97.7 DegF (02/18/21 11:36 PM) Mode of Delivery (Oxygen) Room air (02/19/21 12:25 PM) Room air (02/19/21 7:00 AM) Room air (02/18/21 11:36 PM) Blood pressure sites Arm, right (02/19/21 12:25 PM) Arm, right (02/19/21 7:00 AM) Arm, right (02/18/21 11:36 PM) Temperature Route Oral (02/19/21 12:25 PM) Oral (02/19/21 7:00 AM) Oral (02/18/21 11:36 PM) Social History Social History Type Response Smoking Status Current every day conrad cagle entered on: 06/19/14 Sex
--- OUTSIDE RECORDS SUMMARY | 2024-04-07 12:48 | XMS_ITS | Continuity of Care Document ---
Author Organization [facility] Address [address] [facility], [address] d Floor, [address] [place] [address]- Care Team Providers Care Measurer Machine Name Role Phone Vika TYLER, Dee Simms Primary Care Physician [phone] [place] [facility] [id number] Date(s): 07/28/19 - 08/07/19 [facility] [address], [address], [address] [place] [address]- [facility] Attending Physician: Gerry Li Admitting Physician: AdmtrGerry Referring Physician: AdmtrGerry Allergies, Adverse Reactions, Alerts Substance Reaction Severity [...] 07/12/19 12:02:10 EST, Route to Pharmacy Electronically, NCPDP_[id number], [facility]-, 176, cm, 07/12/19 7:31:19 EST, Height, 95, k... Start Date: 07/12/19 Stop Date: 08/23/19 Status: Ordered carBAMazepine 100 mg oral tablet, chewable 100 mg, 1, tablet, Chew, Daily at bedtime, # 30 tablet, Refills 0, Tot. Refills 0, Maintenance, 07/12/19 12:02:18 EST, Route to Pharmacy Electronically, [id number]_[id number], [facility]-37265, 176, cm, 07/12/19 7:31:19 EST, Height, 95,... [...] 07/12/19 12:02:20 EST, Route to Pharmacy Electronically, [id number]_[id number], [facility]-30530, 176, cm, 07/12/19 7:31:19 EST, Height, 95,... [...]
--- OUTSIDE RECORDS SUMMARY | 2024-04-07 12:48 | XMS_ITS | Continuity of Care Document ---
Author Organization [facility] Address [address] [place] [address]- Care Team Providers Care Sales Representative Gas Service Name Role Phone Not on Staff, PCP Primary Care Physician Unavail able Encounter [facility] [place] Date(s): 04/24/20 - 04/26/[address] [address]- [facility] Encounter Diagnosis Agitation(Final) - 04/24/20 Bipolar disorder(Final) - 04/26/20 Discharge Disposition: A-D/C Home Attending Physician: Everardo [...] 07/12/19 12:02:10 EST, Route to Pharmacy Electronically, NCPDP_[id number], [facility]-, 176, cm, 07/12/19 7:31:19 EST, Height, 95, k... Start Date: 07/12/19 Stop Date: 08/23/19 Status: Ordered carBAMazepine 100 mg oral tablet, chewable 100 mg, 1, tablet, Chew, Daily at bedtime, # 30 tablet, Refills 11, Tot. Refills 11, Maintenance, 11/14/19 9:35:00 EDT, Route to Pharmacy Electronically, [facility]-, 176, cm,09/13/19 9:56:00 EST, Height, 95, kg, 07/06/19 20:4... Start Date: 11/14/19 Status: Ordered Cogentin Tablet Refills 0, Maintenance, 07/14/19 10:45:23 EST Start Date: 07/14/19 Status: Ordered divalproex sodium 500 mg oral tablet, extended release 3 tablet = 1,500 mg, By Mouth, Daily, # 90 tablet, 11 Refills, Maintenance, 11/14/19 9:35:00 EDT, ER Tablet, [facility]-, 176, cm, 09/13/19 9:56:00 EST, Height, [...] 11/14/19 9:35:00 EDT, Route to Pharmacy Electronically, [facility]-[id number], 176, cm, 09/13/19 9:56:00 EST, Height, 95, [...] 3 Oxygen Saturation [94-100 %] 100 % (04/26/20 12:27 PM) 100 % (04/26/20 5:15 AM) 98 % (04/25/20 2:38 PM) Pulse Rate [55-90 bpm] 72 bpm (04/26/20 12:27 PM) 69 bpm (04/26/20 5:15 AM) 86 bpm (04/25/20 2:38 PM) Blood Pressure [90-138/55-84 mm Hg] 130/78mm Hg (04/26/20 12:27 PM) 135/80mm Hg (04/26/20 5:15 AM) 132/79mm Hg (04/25/20 2:38 PM) Respiratory Rate [16-30 br/min] 18 br/min (04/26/20 12:27 PM) 17 br/min (04/26/20 5:15 AM) 18 br/min (04/25/20 2:38 PM) Temperature [96.8-100.4 DegF] 98.2 DegF (04/26/20 12:27 PM) 97.9 DegF (04/26/20 5:15 AM) 98.8 DegF (04/25/20 2:38 PM) Mode of Delivery (Oxygen) Room air (04/26/20 12:27 PM) Room air (04/26/20 5:15 AM) Room air (04/25/20 2:38 PM) Blood pressure sites Arm, left (04/26/20 5:15 AM) Arm, right (04/25/20 2:38 PM) Arm, left (04/24/20 8:38 PM) Temperature Route Oral (04/26/20 12:27 PM) Oral (04/26/20 5:15 AM) Oral (04/25/20 2:38 PM) Social History Social History Type Response Smoking Status Current every day conrad cagle entered on: 06/19/14 Sex
--- OUTSIDE RECORDS SUMMARY | 2024-04-07 12:48 | XMS_ITS | Continuity of Care Document ---
Author Organization [facility] Address Unknown Care Team Providers Care Crusher Dry Ground Mica Name Role Phone Tavon Lewis NP [facility] Care Phys[id number]30[facility] - 03/01/22 [facility] Attending Physician: Gerry Li Admitting Physician: AdmtrGerry Referring Physician: AdmtrGerry Allergies, Adverse Reactions, Alerts No Known Allergies [...] 04/12/21 11:24:00 EDT, Route to Pharmacy Electronically, [facility]-, Partial fill upon patient request if the prescription is for a... Start Date: 04/12/21 Status: Ordered carBAMazepine 100 mg oral tablet, chewable 300 mg, 3, tablet, Chew, 2 times a day, # 180 tablet, Refills 1, Tot. Refills 1, Maintenance, 04/12/21 11:25:00 EDT, Route to Pharmacy Electronically, [facility], Partial fill upon patient request if the prescription is for a... Start Date: 04/12/21 Status: Ordered chlorproMAZINE 100 mg oral tablet = 100 mg, By Mouth, 4 times a day, PRN Agitation, # 60 tablet, 1 Refills, Maintenance, 04/12/21 11:25:00 EDT, Tablet, [facility], Partial fill upon patient request if the prescription is for a schedule II opioid drug., 175, cm... Start Date: 04/12/21 Status: Ordered divalproex sodium 250 mg oral tablet, extended release 3 tablet = 750 mg, By Mouth, Daily in AM, # 90 tablet, 0 Refills, Maintenance, 09/20/21 17:51:00 EST, ER Tablet, [facility]/pharmacy #[id number], Partial fill upon patient request if the prescription is for a schedule II opioid drug. Start Date: 09/20/21 Status: Ordered Haldol Decanoate decanoate 100 mg/ml injectable solution = 300 mg, Intramuscular, Once, next due on 04/23/2021, # 1 each, 1 Refills, Soft Stop, 04/12/21 11:25:00 EDT, [facility], Partial fill upon patient request if the prescriptionis for a schedule II opioid drug., 175, cm, ... Start Date: 04/12/21 Status: Ordered melatonin 10 mg oral capsule 1 capsule = 10 mg, By Mouth, Daily at bedtime, PRN Sleep, # 30 capsule, 1 Refills, Maintenance, 04/12/21 11:27:00 EDT, Capsule, [facility], Partial fill upon patient request if the [...] 1 Refills, Maintenance, 04/12/21 11:25:00 EDT, Tablet, [facility]-, Partial fill upon patient request if the prescription is for a schedule II opioid drug., 175, cm, 04/09... Start Date: 04/12/21 Status: Ordered ZyPREXA 5 mg oral tablet 5 mg, 1, tablet, By Mouth, 2 times a day, # 30 tablet, Refills 0, Tot. Refills 0, Maintenance, 09/21/21 0:31:00 EST, Route to Pharmacy Electronically, [facility]/pharmacy #[id number], Partial fill upon patient request if the [...]
--- OUTSIDE RECORDS SUMMARY | 2024-04-07 12:48 | XMS_ITS | Continuity of Care Document ---
Author Organization [facility] Address [address] [place] [address]- Care Team Providers Care Project Engineering Manager Name Role Phone Vika TYLER, Dee Simms Primary Care Physician [place] [facility] [place]/21[place] - 04/22/[address] [address]- [facility] Encounter Diagnosis Cocaine use(Final) - 04/22/20 Discharge Disposition: A-D/C Home Attending Physician: Rancho Lange MD Admitting Physician: Rancho Lange MD Referring Physician: Not on Staff, Referring [...] 07/12/19 12:02:10 EST, Route to Pharmacy Electronically, NCPDP_[id number], [facility]-, 176, cm, 07/12/19 7:31:19 EST, Height, 95, k... Start Date: 07/12/19 Stop Date: 08/23/19 Status: Ordered carBAMazepine 100 mg oral tablet, chewable 100 mg, 1, tablet, Chew, Daily at bedtime, # 30 tablet, Refills 11, Tot. Refills 11, Maintenance, 11/14/19 9:35:00 EDT, Route to Pharmacy Electronically, [facility]-, 176, cm,09/13/19 9:56:00 EST, Height, 95, kg, 07/06/19 20:4... Start Date: 11/14/19 Status: Ordered Cogentin Tablet Refills 0, Maintenance, 07/14/19 10:45:23 EST Start Date: 07/14/19 Status: Ordered divalproex sodium 500 mg oral tablet, extended release 3 tablet = 1,500 mg, By Mouth, Daily, # 90 tablet, 11 Refills, Maintenance, 11/14/19 9:35:00 EDT, ER Tablet, [facility]-, 176, cm, 09/13/19 9:56:00 EST, Height, 95, [...] 11/14/19 9:35:00 EDT, Route to Pharmacy Electronically, [facility]-[id number], 176, cm, 09/13/19 9:56:00 EST, Height, 95, [...] Range]: 1 2 Oxygen Saturation [94-100 %] 99 % (04/22/20 6:22 AM) 98 % (04/21/20 9:52 PM) Pulse Rate [55-90 bpm] 63 bpm (04/22/20 6:22 AM) 93 bpm *H* (04/21/20 9:52 PM) Blood Pressure [90-138/55-84 mm Hg] 110/ 68mm Hg (04/22/20 6:22 AM) 142/74mm Hg *H* (04/21/20 9:52 PM) Respiratory Rate [16-30 br/min] 16 br/mi n (04/22/20 6:22 AM) 18 br/min (04/21/20 9:52 PM) Temperature [96.8-100.4 DegF] 98.2 DegF (04/22/20 6:22 AM) 98.3 DegF (04/21/20 9:52 PM) Liters per Minute 0 L/min (04/22/20 6:22 AM) Mode of Delivery (Oxygen) Room air (04/22/20 6:22 AM) Room air (04/21/20 9:52 PM) Blood pressure sites Arm, left (04/21/20 9:52 PM) Temperature Route Oral (04/22/20 6:22 AM) Oral (04/21/20 9:52 PM) Social History Social History Type Response Smoking Status Current every day conrad cagle entered on: 06/19/14 Sex
--- OUTSIDE RECORDS SUMMARY | 2024-04-07 12:48 | XMS_ITS | Continuity of Care Document ---
Author Organization [facility] Address Unknown Care Team Providers Care Timber Management Assistant Name Role Phone Joshua TYLER, Tavon Primary Care Physician [phone] [place] [facility] [place] 04/23/21 - 05/23/21 [facility] Attending Physician: Gerry Li Admitting Physician: Gerry Li Referring Physician: Gerry Li Allergies, Adverse Reactions, Alerts Substance Reaction Severity [...] 04/12/21 11:24:00 EDT, Route to Pharmacy Electronically, [facility], Partial fill upon patient request if the prescription is for a... Start Date: 04/12/21 Status: Ordered carBAMazepine 100 mg oral tablet, chewable 300 mg, 3, tablet, Chew, 2 times a day, # 180 tablet, Refills 1, Tot. Refills 1, Maintenance, 04/12/21 11:25:00 EDT, Route to Pharmacy Electronically, [facility], Partial fill upon patient request if the prescription is for a... Start Date: 04/12/21 Status: Ordered chlorproMAZINE 100 mg oral tablet = 100 mg, By Mouth, 4 times a day, PRN Agitation, # 60 tablet, 1 Refills, Maintenance, 04/12/21 11:25:00 EDT, Tablet, [facility]-, Partial fill upon patient request if the prescription is for a schedule II opioid drug., Eduardo cm... Start Date: 04/12/21 Status: Ordered Haldol Decanoate decanoate 100 mg/ml injectable solution = 300 mg, Intramuscular, Once, next due on 04/23/2021, # 1 each, 1 Refills, Soft Stop, 04/12/21 11:25:00 EDT, [facility]-, Partial fill upon patient request if the prescriptionis for a schedule II opioid drug., Eduardo cm, ... Start Date: 04/12/21 Status: Ordered melatonin 10 mg oral capsule 1 capsule = 10 mg, By Mouth, Daily at bedtime, PRN Sleep, # 30 capsule, 1 Refills, Maintenance, 04/12/21 11:27:00 EDT, Capsule, [facility], Partial fill upon patient request if the prescription is for a schedule II opioid drug... Start Date: 04/12/21 Status: Ordered olanzapine 15 mg oral tablet 1 tablet = 15 mg, By Mouth, 2 times a day, # 60 tablet, 1 Refills, Maintenance, 04/12/21 11:25:00 EDT, Tablet, [facility], Partial fill upon patient request if the prescription is for a schedule II opioid drug., Eduardo cm, 04/09... Start Date: 04/12/21 Status: Ordered Problem List Condition Effective Dates Status Health Status Inform ant Bipolar disorder(Confirmed) Active Epileptic seizure, generalized(Confirmed) Active Generalized seizure(Confirmed) Active Seizure disorder(Confirmed) Active Tobacco dependence(Confirmed) Active Social History Social History Type Response Smoking Status Current every day conrad cagle entered on: 06/19/14 Sex
--- OUTSIDE RECORDS SUMMARY | 2024-04-07 12:48 | XMS_ITS | Continuity of Care Document ---
Author Organization [facility] ter Address [address] [place] [address]- Care Team Providers Care Sales Associate Cashier Name Role Phone Joshua TYLER, Tavon Primary Care Physician [phone] Encounter [facility] [place]CT R [id number] Date(s): 11/07/21 - 11/08/[address] [address]- Discharge Disposition: A-D/C Home Attending Physician: Robert Lobato MD Admitting Physician: Robert Lobato MD Referring Physician: Not on Staff, Referring [...] 04/12/21 11:24:00 EDT, Route to Pharmacy Electronically, [facility], Partial fill upon patient request if the prescription is for a... Start Date: 04/12/21 Status: Ordered carBAMazepine 100 mg oral tablet, chewable 300 mg, 3, tablet, Chew, 2 times a day, # 180 tablet, Refills 1, Tot. Refills 1, Maintenance, 04/12/21 11:25:00 EDT, Route to Pharmacy Electronically, [facility]-, Partial fill upon patient request if the prescription is for a... Start Date: 04/12/21 Status: Ordered chlorproMAZINE 100 mg oral tablet = 100 mg, By Mouth, 4 times a day, PRN Agitation, # 60 tablet, 1 Refills, Maintenance, 04/12/21 11:25:00 EDT, Tablet, [facility]-, Partial fill upon patient request if the prescription is for a schedule II opioid drug., 175, cm... Start Date: 04/12/21 Status: Ordered divalproex sodium 250 mg oral tablet, extended release 3 tablet = 750 mg, By Mouth, Daily in AM, # 90 tablet, 0 Refills, Maintenance, 09/20/21 17:51:00 EST, ER Tablet, [facility]/pharmacy #[id number], Partial fill upon patient request if the prescription is for a schedule II opioid drug. Start Date: 09/20/21 Status: Ordered Haldol Decanoate decanoate 100 mg/ml injectable solution = 300 mg, Intramuscular, Once, next due on 04/23/2021, # 1 each, 1 Refills, Soft Stop, 04/12/21 11:25:00 EDT, [facility]-, Partial fill upon patient request if the prescriptionis for a schedule II opioid drug., 175, cm, ... Start Date: 04/12/21 Status: Ordered melatonin 10 mg oral capsule 1 capsule = 10 mg, By Mouth, Daily at bedtime, PRN Sleep, # 30 capsule, 1 Refills, Maintenance, 04/12/21 11:27:00 EDT, Capsule, [facility]-, Partial fill upon patient request if [...] 1 Refills, Maintenance, 04/12/21 11:25:00 EDT, Tablet, [facility]-, Partial fill upon patient request if the prescription is for a schedule II opioid drug., 175, cm, 04/09... Start Date: 04/12/21 Status: Ordered ZyPREXA 5 mg oral tablet 5 mg, 1, tablet, By Mouth, 2 times a day, # 30 tablet, Refills 0, Tot. Refills 0, Maintenance, 09/21/21 0:31:00 EST, Route to Pharmacy Electronically, [facility]/pharmacy #[id number], Partial fill upon patient request if the [...] 3 Oxygen Saturation [94-100 %] 97 % (11/08/21 10:25 AM) 96 % (11/07/21 8:30 PM) 95 % (11/07/21 3:30 PM) Pulse Rate [55-90 bpm] 92 bpm *H* (11/08/21 10:25 AM) 78 bpm (11/07/21 8:30 PM) 100 bpm *H* (11/07/21 3:30 PM) Blood Pressure [90-138/55-84 mm Hg] 147/74mm Hg *H* (11/08/21 10:25 AM) 126/76mm Hg (11/07/21 8:30 PM) 125/74mm Hg (11/07/21 3:30 PM) Respiratory Rate [16-30 br/min] 16 br/min (11/08/21 10:25 AM) 18 br/min (11/07/21 8:30 PM) 16 br/min (11/07/21 3:30 PM) Temperature [96.8-100.4 DegF] 98.5 DegF (11/08/21 10:25 AM) 99.6 DegF (11/07/21 3:30 PM) Mode of Delivery (Oxygen) Room air (11/08/21 10:25 AM) Room air (11/07/21 8:30 PM) Room air (11/07/21 3:30 PM) Temperature Route Oral (11/08/21 10:25 AM) Oral (11/07/21 3:30 PM) Social History Social History Type Response Smoking Status Current every day conrad cagle entered on: 06/19/14 Sex
--- OUTSIDE RECORDS SUMMARY | 2024-04-07 12:48 | XMS_ITS | Continuity of Care Document ---
Author Organization [facility] ter Address [address] [place] [address]- Care Team Providers Care Liquor Store Manager Name Role Phone Joshua TYLER, Tavon Primary Care Physician [place] [facility] [place] 12/17/21 - 12/19/[address] [address]- Encounter Diagnosis Schizoaffective disorder(Final) - 12/17/21 Discharge Disposition: A-D/C Home Attending Physician: Lalita Knowles MD Admitting Physician: Lalita Knowles MD Referring Physician: Not on Staff, Referring [...] Pharmacy Electronically, [facility] Partial fill upon patient request if the prescription is for a... Start Date: 04/12/21 Status: Ordered carBAMazepine 100 mg oral tablet, chewable 300 mg, 3, tablet, Chew, 2 times a day, # 180 tablet, Refills 1, Tot. Refills 1, Maintenance, 04/12/21 11:25:00 EDT, Route to Pharmacy Electronically, [facility]-, Partial fill upon patient request if the prescription is for a... Start Date: 04/12/21 Status: Ordered chlorproMAZINE 100 mg oral tablet = 100 mg, By Mouth, 4 times a day, PRN Agitation, # 60 tablet, 1 Refills, Maintenance, 04/12/21 11:25:00 EDT, Tablet, [facility]-, Partial fill upon patient request if the prescription is for a schedule II opioid drug., 175, cm... Start Date: 04/12/21 Status: Ordered divalproex sodium 250 mg oral tablet, extended release 3 tablet = 750 mg, By Mouth, Daily in AM, # 90 tablet, 0 Refills, Maintenance, 09/20/21 17:51:00 EST, ER Tablet, [facility]/pharmacy #[id number], Partial fill upon patient request if the prescription is for a schedule II opioid drug. Start Date: 09/20/21 Status: Ordered Haldol Decanoate decanoate 100 mg/ml injectable solution = 300 mg, Intramuscular, Once, next due on 04/23/2021, # 1 each, 1 Refills, Soft Stop, 04/12/21 11:25:00 EDT, [facility]-, Partial fill upon patient request if the prescriptionis for a schedule II opioid drug., 175, cm, ... Start Date: 04/12/21 Status: Ordered melatonin 10 mg oral capsule 1 capsule = 10 mg, By Mouth, Daily at bedtime, PRN Sleep, # 30 capsule, 1 Refills, Maintenance, 04/12/21 11:27:00 EDT, Capsule, [facility]-, Partial fill upon patient request if the [...] EDT, Tablet, [facility]-, Partial fill upon patient request if the prescription is for a schedule II opioid drug., 175, cm, 04/09... Start Date: 04/12/21 Status: Ordered ZyPREXA 5 mg oral tablet 5 mg, 1, tablet, By Mouth, 2 times a day, # 30 tablet, Refills 0, Tot. Refills 0, Maintenance, 09/21/21 0:31:00 EST, Route to Pharmacy Electronically, [facility]/pharmacy #[id number], Partial fill upon patient request if the [...] 3 Oxygen Saturation [94-100 %] 98 % (12/18/21 8:33 PM) 98 % (12/18/21 5:55 AM) 99 % (12/17/21 8:24 PM) Pulse Rate [55-90 bpm] 85 bpm (12/18/21 8:33 PM) 97 bpm *H* (12/18/21 5:55 AM) 62 bpm (12/17/21 8:24 PM) Blood Pressure [90-138/55-84 mm Hg] 133/78mm Hg (12/18/21 8:33 PM) 135/75mm Hg (12/18/21 5:55 AM) 125/74mm Hg (12/17/21 8:24 PM) Respiratory Rate [16-30 br/min] 16 br/min (12/18/21 8:33 PM) 18 br/min (12/18/21 5:55 AM) 18 br/min (12/17/21 8:24 PM) Temperature [96.8-100.4 DegF] 98.1 DegF (12/18/21 8:33 PM) 98.3 DegF (12/17/21 8:24 PM) 98.6 DegF (12/17/21 5:16 PM) Mode of Delivery (Oxygen) Room air (12/18/21 8:33 PM) Room air (12/18/21 5:55 AM) Blood pressure sites Arm, right (12/18/21 8:33 PM) Temperature Route Oral (12/18/21 8:33 PM) Oral (12/17/21 8:24 PM) Oral (12/17/21 5:16 PM) Social History Social History Type Response Smoking Status Current every day conrad cagle entered on: 06/19/14 Sex
--- OUTSIDE RECORDS SUMMARY | 2024-04-07 12:48 | XMS_ITS | Continuity of Care Document ---
Author Organization [facility] Address Unknown Care Team Providers Care Data Processing Systems Consultant Name Role Phone Joshua TYLER, Tavon Primary Care Physician [phone] [place] [facility] [place] 06[place]13/21 [facility] Allergies, Adverse Reactions, Alerts Substance Reaction Severity [...] 11:24:00 EDT, Route to Pharmacy Electronically, [facility], Partial fill upon patient request if the prescription is for a... Start Date: 04/12/21 Status: Ordered carBAMazepine 100 mg oral tablet, chewable 300 mg, 3, tablet, Chew, 2 times a day, # 180 tablet, Refills 1, Tot. Refills 1, Maintenance, 04/12/21 11:25:00 EDT, Route to Pharmacy Electronically, [facility], Partial fill upon patient request if the prescription is for a... Start Date: 04/12/21 Status: Ordered chlorproMAZINE 100 mg oral tablet = 100 mg, By Mouth, 4 times a day, PRN Agitation, # 60 tablet, 1 Refills, Maintenance, 04/12/21 11:25:00 EDT, Tablet, [facility], Partial fill upon patient request if the prescription is for a schedule II opioid drug., 175, cm... Start Date: 04/12/21 Status: Ordered Haldol Decanoate decanoate 100 mg/ml injectable solution = 300 mg, Intramuscular, Once, next due on 04/23/2021, # 1 each, 1 Refills, Soft Stop, 04/12/21 11:25:00 EDT, [facility], Partial fill upon patient request if the prescriptionis for a schedule II opioid drug., 175, cm, ... Start Date: 04/12/21 Status: Ordered melatonin 10 mg oral capsule 1 capsule = 10 mg, By Mouth, Daily at bedtime, PRN Sleep, # 30 capsule, 1 Refills, Maintenance, 04/12/21 11:27:00 EDT, Capsule, [facility], Partial fill upon patient request if the prescription is for a schedule II opioid drug... Start Date: 04/12/21 Status: Ordered olanzapine 15 mg oral tablet 1 tablet = 15 mg, By Mouth, 2 times a day, # 60 tablet, 1 Refills, Maintenance, 04/12/21 11:25:00 EDT, Tablet, [facility], Partial fill upon patient request if the prescription is for a schedule II opioid drug., 175, cm, 04/09... Start Date: 04/12/21 Status: Ordered Problem List Condition Effective Dates Status Health Status Inform ant Bipolar disorder(Confirmed) Active Epileptic seizure, generalized(Confirmed) Active Generalized seizure(Confirmed) Active Seizure disorder(Confirmed) Active Tobacco dependence(Confirmed) Active Social History Social History Type Response Smoking Status Current every day conrad gurjit entered on: 06/19/14 Sex
--- OUTSIDE RECORDS SUMMARY | 2024-04-07 12:48 | XMS_ITS | Continuity of Care Document ---
Author Organization [facility] Address [address] [facility], [address] Floor, [address] [place] [id number]- Care Team Providers Care Sodium Chlorite Operator Name Role Phone Not on Staff, PCP Primary Care Physician Unavail able [place] [facility] [place]20 [facility] [address], [address], [address] [place] [address] Attending Physician: Ronald Avila NP Admitting [...]
--- OUTSIDE RECORDS SUMMARY | 2024-04-07 12:48 | XMS_ITS | Continuity of Care Document ---
Author Organization [facility] ter Address [address] [place] [address]- Care Team Providers Care Roof Bolter Operator Name Role Phone Not on Staff, PCP Primary Care Physician Unavail able [place] [facility] [place]20 [facility] [address] [place] [address]- Encounter Diagnosis Chronic schizoaffective disorder(Final) - 11/06/20 Discharge Disposition: A-D/C Home Attending Physician: Jeremiah Fitzgerald MD Admitting Physician: Jeremiah Fitzgerald MD Referring Physician: Not on Staff, Referring [...] 10/09/20 10:38:00 EST, Route to Pharmacy Electronically, [facility]-, Partial fill upon patient request if the prescription is for a... Start Date: 10/09/20 Stop Date: 11/08/20 Status: Ordered carBAMazepine 400 mg oral tablet, extended release 400 mg, 1, tablet, By Mouth, 2 times a day, # 60 tablet, Refills 0, Tot. Refills 0, Maintenance, 10/09/20 10:38:00 EST, Route to Pharmacy Electronically, [facility], Partial fill upon patient request if the prescription is for... Start Date: 10/09/20 Stop Date: 11/08/20 Status: Ordered divalproex sodium 500 mg oral tablet, extended release 3 tablet = 1,500 mg, By Mouth, Daily at bedtime, # 90 tablet, 0 Refills, Maintenance, 10/09/20 10:39:00 EST, ER Tablet, [facility], Partial fill upon patient request if the prescription is for a schedule II opioid drug., 175.2... Start Date: 10/09/20 Stop Date: 11/08/20 Status: Ordered haloperidol 10 mg oral tablet 10 mg, 1, tablet, By Mouth, 2 times a day, # 60 tablet, Refills 0, Tot. Refills 0, Maintenance, 10/09/20 10:38:00 EST, Route to Pharmacy Electronically, [facility], Partial fill upon patient request if the prescription is for... Start Date: 10/09/20 Stop Date: 11/08/20 Status: Ordered Problem List Condition Effective Dates Status Health Status Inform ant Bipolar disorder(Confirmed) Active Epileptic seizure, generalized(Confirmed) Active Generalized seizure(Confirmed) Active Seizure disorder(Confirmed) Active Tobacco dependence(Confirmed) Active Vital Signs Most recent to oldest [Reference Range]: 1 2 3 Oxygen Saturation [94-100 %] 100 % (11/07/20 12:40 PM) 100 % (11/07/20 5:56 AM) 100 % (11/07/20 2:55 AM) Pulse Rate [55-90 bpm] 80 bpm (11/07/20 12:40 PM) 93 bpm *H* (11/07/20 5:56 AM) 77 bpm (11/07/20 2:55 AM) Blood Pressure [90-138/55-84 mm Hg] 148/55mm Hg *H* (11/07/20 12:40 PM) 129/83mm Hg (11/07/20 5:56 AM) 121/77mm Hg (11/07/20 2:55 AM) Respiratory Rate [16-30 br/min] 18 br/min (11/07/20 12:40 PM) 18 br/min (11/07/20 5:56 AM) 16 br/min (11/07/20 2:55 AM) Temperature [96.8-100.4 DegF] 98.0 DegF (11/07/20 12:40 PM) 98.0 DegF (11/07/20 5:56 AM) 97.6 DegF (11/07/20 2:55 AM) Mode of Delivery (Oxygen) Room air (11/07/20 12:40 PM) Room air (11/07/20 5:56 AM) Room air (11/07/20 2:55 AM) Blood pressure sites Arm, left (11/07/20 12:40 PM) Arm, right (11/07/20 2:55 AM) Arm, right (11/07/20 12:26 AM) Temperature Route Oral (11/07/20 12:40 PM) Oral (11/07/20 5:56 AM) Oral (11/07/20 2:55 AM) Social History Social History Type Response Smoking Status Current every day conrad cagle entered on: 06/19/14 Sex
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
--- OUTSIDE RECORDS SUMMARY | 2024-04-07 12:49 | XMS_ITS | Patient Health Record ---
Author Organization [facility] Address [address] [place], [place] [id number] Care Team Providers Care Outbound Telemarketing Representative Name Role Phone [facility] Unavailable Nehal Moralez Unavailable Unavailable ALLERGIES No Known Allergies REASON FOR REFERRAL No Information MEDICATIONS Medication SIG (Take, Route, Frequency, Duration) Notes Start Date End Date Status Melatonin 10 mg 1 tab(s) orally once a day (at bedtime),prn 03/29/21,1RF Active Tegretol XR 100 mg 3 tabs orally 2 time s a day Active haloperidol 2 mg 1 tab(s) orally BID Not-Taking Haldol Decanoate decanoate 100 mg/mL 3 ml intramuscularly every 4 weeks Active Keppra 500 mg 2 tab(s) orally 2 times a day Not-Taking trihexyphenidyl 5 mg 1 tab(s) orally acosta e w/Haldol Not-Taking Tegretol 200 mg 1 tab in AM, 2 tabs PM orally BID 04/19/21,1RF Not-Taking benztropine 1 mg 1 tab(s) orally 2 times a day 04/19/21,1RF Active OLANZapine 15 mg 1 tab(s) orally bid LF 04/19/21,1RF Active chlorproMAZINE 100 mg 1 tab(s) orally qid,prn 04/19/21,1RF Active QUEtiapine 200 mg 1 tab(s) orally QQHS Not-Taking RisperDAL 3 mg 2 tab(s) orally QHS Not-Taking risperiDONE 2 mg 1 tab(s) orally QAM Not-Taking SOCIAL HISTORY Tobacco Use: Social History Observation Description Date Details (start date - stop date) Current Smoker NA - NA Sex Assigned At : Social History Observation Description Sex Assigned At Unknown Tobacco Use Assessment MU Question Answer Notes What is your current smoking status? current smoker How often do you smoke? every day How many cigarettes a day do you smoke? 11-20 varies How soon after you wake up d o you smoke your first cigarette? 6-30 minutes Are you interested in quitting? thinking about q uitting Patient counseled on the edis gers of tobacco use and advised to quit: 07/03/2014 patient not ready to quit, but will think about it PROBLEMS Problem Type ICD Code Onset Dates Problem Status W/U Status Risk SNOMED Code Notes Problem TUBERCULOSIS CONTACT (V01.1) Active confirmed Exposure to tuberculosis (7256264632285) Problem Psychotic (298.9) Active confirmed Psychotic disorder (14106391) Problem Body mass index [BMI] 28.0-28.9, adult (Z68.28) Active confirmed Body mass ind ex 25-29 - overweight (852443133) Problem Sheltered homelessness (Z59.01) Active confirmed Sheltered homelessness ([id number] ) PLAN OF TREATMENT No Information Insurance Providers Payer Name Payer Address Payer Phone Subscriber Number Group Number Insured Name Patient Relationship to Insured Coverage Start Date Coverage End Date [place] Medicaid C3 [address] [place], [place] [id number] Leif Leblanc Self - patient is the insured MEDICAL (GENERAL) HISTORY Medical History History ICD Code psychiatric disorder, r/o schizoaffectiv e disorder seizures since age 11 yrs old tobacco use hx alcohol use marijuanna use depression Hospitalization History Reason Date(Month/Year) [facility] 03/2021 [facility], unsure of name of facility [facility], Psych 06/2014
[2024-04-07 13:02] LABS: Alanine Aminotransferase 151 U/L (0-40); Albumin Level 4.7 g/dL (3.5-5.0); Alkaline Phosphatase 35 U/L (39-117); Anion Gap 13 (12-20); Aspartate Amino Transferase 193 U/L (5-37); Bilirubin Direct 0.3 mg/dL (0.0-0.5); Bilirubin Total 0.6 mg/dL (0.0-1.0); Blood Urea Nitrogen 11 mg/dL (9-16); Calcium 10.1 mg/dL (8.4-10.2); Carbon Dioxide 26 mmol/L (22-29); Chloride 103 mmol/L (96-108); Creatinine Clr Calc Pharmacy 132.9; Estimated Glomerular Filt Rate > 60; Ethanol < 10 mg/dL; Glucose Random 95 mg/dL (60-115); Potassium 4.3 mmol/L (3.3-5.1); Sodium 138 mmol/L (135-145); Total Protein 8.1 g/dL (6.5-8.0)
[2024-04-07 14:14] LABS: Valproate 47.4 mcg/mL (50.0-100.0)
[2024-04-07 15:24] VITALS: BP 130/83; PULSE 91; RESP 16; TEMP 36.9; O2SAT 98
[2024-04-07] MEDS: Valproic Acid 250 MG CAPSULE 500 MG PO (15:47)
[2024-04-07 16:23] VITALS: BP 120/70; PULSE 80; RESP 14; TEMP 36.8; O2SAT 98
--- NOTE | 2024-04-07 16:31 | PC.NURSE ---
nurse to nurse report called into charge nurse at [facility] regarding CT and need to increase his valproic acid
== END 2024-04-07 18:44 ==
PROVIDERS: Emergency Provider Emergency Medicine
DX: R56.9 Unspecified convulsions (principal); F25.0 Schizoaffective disorder, bipolar type; R00.0 Tachycardia, unspecified; R51.9 Headache, unspecified; I45.10 Unspecified right bundle-branch block; Z79.899 Other long term (current) drug therapy; Z51.81 Encounter for therapeutic drug level monitoring
CPT/HCPCS: 36415; 70450; 80048; 80076; 80156; 80164; 80307; 81001; 83735; 85025; 87086; 93005; 99284; 99285

== ENCOUNTER 2024-05-22 15:43 | Emergency (ER) | payer MEDICAID, SELFPAY ==
--- NOTE | ~2024-05-22 | XR_ITS ---
EXAMINATION: XR CHEST CLINICAL INFORMATION: Fever, source unclear. COMPARISON: None available. TECHNIQUE: Frontal view of the chest was obtained. FINDINGS: Normal cardiomediastinal silhouette. The lungs are clear without consolidation, pleural effusion or pneumothorax. No acute osseous abnormalities. XR/XR chest 1V IMPRESSION: No acute cardiopulmonary process. Electronically signed by: Jeremiah Fuchs MD 05/22/2024 08:13 PM EDT RP
[2024-05-22 15:49] VITALS: BP 113/79; PULSE 102; PULSE 94; RESP 14; TEMP 38.8; O2SAT 98; O2SAT 99; BMI 22.3
--- NOTE | 2024-05-22 15:50 | ECG_ITS ---
Test Reason : LETHARGIC Blood Pressure : / mmHG Vent. Rate : 095 BPM Atrial Rate : 095 BPM P-R Int : 138 ms QRS Dur : 088 ms QT Int : 346 ms P-R-T Axes : 047 038 022 degrees QTc Int : 434 ms Normal sinus rhythm Normal ECG When compared with ECG of 07-APR-2024 12:45, No significant change was found Referred By: Generic ED Physician Electronically Signed By:RADHA WEST
[2024-05-22 15:54] LABS: Glucose, Whole Blood 75 mg/dL (60-115)
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
[2024-05-22 16:31] LABS: Basophils Percent Auto 0.1 % (0-2); Hematocrit 39.1 % (42.0-52.0); Hemoglobin 13.7 g/dl (14.0-18.0); Imm Gran Abs Auto 0.02 X10*3/uL (0.00-0.03); Imm Gran Pct Auto 0.3 % (0.0-0.4); Lymphocytes Absolute Auto 1.1 X10*3/uL (1.2-4.9); Lymphocytes Percent Auto 14.9 % (20-40); MANUAL DIFF FLAG SCAN; Mean Corpuscular Hemoglobin 30.8 pg (27.0-33.0); Mean Corpuscular Volume 87.9 fL (80.0-98.0); Monocytes Absolute Auto 1.5 X10*3/uL (0.1-1.2); Neutrophils Absolute Auto 4.9 x10*3/uL (2.0-8.3); Neutrophils Percent Auto 64.7 % (45-73); PLT CLUMP 1; Red Blood Count 4.45 X10*6/uL (4.60-5.80); Red Cell Distribution Width 12.2 % (11.0-16.0); SCAN SMEAR FLAG 1
[2024-05-22 16:32] LABS: White Blood Count 7.5 X10*3/uL (4.8-10.8)
--- OUTSIDE RECORDS SUMMARY | 2024-05-22 16:38 | XMS_ITS | Continuity of Care Document ---
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 Role Phone Not on Staff, PCP Primary Care Physician Unavail able Encounter [facility] [place](s): 04/14/24 - 05/14/24 [facility] [address], [address] [place] [id number]- Allergies, Adverse Reactions, Alerts No Known Allergies Immunizations Given and Recorded Vaccine Date Status Refusal Reason tetanus/diphtheria/pertussis, acel(Tdap) 02/13/13 Given Medications benztropine 1 mg oral tablet 1 [...] 04/12/21 11:24:00 EDT, Route to Pharmacy Electronically, [facility]-, Partial fill upon patient request if the prescription is for a... Start Date: 04/12/21 Status: Ordered carBAMazepine 100 mg oral tablet, chewable 300 mg, 3, tablet, Chew, 2 times a day, # 180 tablet, Refills 1, Tot. Refills 1, Maintenance, 04/12/21 11:25:00 EDT, Route to Pharmacy Electronically, [facility]-, Partial fill upon patient request if the prescription is for a... Start Date: 04/12/21 Status: Ordered chlorproMAZINE 100 mg oral tablet = 100 mg, By Mouth, 4 times a day, PRN Agitation, # 60 tablet, 1 Refills, Maintenance, 04/12/21 11:25:00 EDT, Tablet, [facility], Partial fill upon patient request if the prescription is for a schedule II opioid drug., 175, cm... Start Date: 04/12/21 Status: Ordered divalproex sodium 250 mg oral tablet, extended release 3 tablet = 750 mg, By Mouth, Daily in AM, # 90 tablet, 0 Refills, Maintenance, 09/20/21 17:51:00 EST, ER Tablet, [facility]/pharmacy #[id number], Partial fill upon patient request if the prescription is for a schedule II opioid drug. Start Date: 09/20/21 Status: Ordered Haldol Decanoate decanoate 100 mg/ml injectable solution = 300 mg, Intramuscular, Once, next due on 04/23/2021, # 1 each, 1 Refills, Soft Stop, 04/12/21 11:25:00 EDT, [facility], Partial fill upon patient request if the prescriptionis for a schedule II opioid drug., 175, cm, ... Start Date: 04/12/21 Status: Ordered melatonin 10 mg oral capsule 1 capsule = 10 mg, By Mouth, Daily at bedtime, PRN Sleep, # 30 capsule, 1 Refills, Maintenance, 04/12/21 11:27:00 EDT, Capsule, [facility]-, Partial fill upon patient request [...] 1 Refills, Maintenance, 04/12/21 11:25:00 EDT, Tablet, [facility], Partial fill upon patient request if the prescription is for a schedule II opioid drug., 175, cm, 04/09... Start Date: 04/12/21 Status: Ordered ZyPREXA 5 mg oral tablet 5 mg, 1, tablet, By Mouth, 2 times a day, # 30 tablet, Refills 0, Tot. Refills 0, Maintenance, 09/21/21 0:31:00 EST, Route to Pharmacy Electronically, [facility]/pharmacy #[id number], Partial fill upon patient request if the prescription is for a schedule II opioi... Start Date: 09/21/21 Status: Ordered Problem List Condition Confirmation Course Effective Dates Status H ealth Status Informant Bipolar disorder Confirmed Active Fall Confirmed Active Epileptic seizure, generalized Confirmed Active Generalized seizure Confirmed Active Traumatic ecchymosis of face Confirmed Active Violent behavior Confirmed Active Schizophrenic disorder Confirmed Active Seizure disorder Confirmed Active Tobacco dependence Confirmed Active Social History Social History Type Response Smoking Status Current every day conrad gurjit entered on: 06/19/14 Sex Patient Care team information Care Team Personnel Name: Stacey Montoya RN Position: [facility] GM Office Staff Member Role: Primary Care Nurse Name: Nilda Rm RN Position: [facility] RN Member Role: Primary Care Nurse Name: Tamika Sandoval RN Position: [facility] AMB Nurse Member Role: Primary Care Nurse Name: Not on Staff, PCP Position: [facility] Physician (General Medicine) Member Role: PCP Name: Seth Byrnes RN Position: [facility] RN Member Role: Primary Care Nurse Name: Albino Fuller RN Position: [facility] RN Member Role: Primary Care Nurse Name: Mirza Mo RN Position: [facility] RN Member Role: Primary Care Nurse Care Team Related Persons Name: EDITH DUDLEY Address: home [address] [place] [address] Name: EDITH DAMON Address: home [address] [place] [address] Name: KILLIAN PALOMO Address: home [address] [place] [id number]
--- OUTSIDE RECORDS SUMMARY | 2024-05-22 16:39 | XMS_ITS | Patient Health Record ---
Author Organization [facility] Address [address], [place] [id number] Care Team Providers Care .Net Developer Name Role Phone [facility] Provi chato Unavailable Nehal Moralez Unavailable Unavailable [...] CONTACT (V01.1) Active confirmed Exposure to tuberculosis (4859676640629) Problem Psychotic (298.9) Active confirmed Psychotic disorder (81151267) Problem Body mass index [BMI] 28.0-28.9, adult (Z68.28) Active confirmed Body mass ind ex 25-29 - overweight (179975505) Problem Sheltered homelessness (Z59.01) Active confirmed Sheltered homelessness ([id number] ) PLAN OF TREATMENT No Information Insurance Providers Payer Name Payer Address Payer Phone Subscriber Number Group Number Insured Name Patient Relationship to Insured Coverage Start Date Coverage End Date ID Medicaid C3 [address] [place], [place] [id number] Leif Leblanc Self - patient is the insured MEDICAL (GENERAL) HISTORY Medical History History ICD Code psychiatric disorder, r/o schizoaffectiv e disorder seizures since age 11 yrs old tobacco use hx alcohol use marijuanna use depression Hospitalization History Reason Date(Month/Year) [facility]section [facility]35 03/2021 [facility], unsure of name of facility [facility], Psych 06/2014
[2024-05-22 16:57] LABS: Mean Platelet Volume 11.4 fL (9.4-12.4); Platelet Count 121 X10*3/uL (160-400); SLIDE REVIEW VERIFIED
--- NOTE | 2024-05-22 17:28 | ED.GENADULT ---
HPI - General Adult General Chief complaint: General Medical Stated complaint: lethargy, weakness Time Seen by Provider: 05/22/24 17:28 History of Present Illness ED Provider: Niru MENDOZA narrative: The patient is a 34-year-old male history of schizoaffective disorder, bipolar type. He also has a history of type 2 diabetes, hyperlipidemia, a seizure disorder on Depakote, also history of transaminitis and extrapyramidal and movement disorders. The patient has been an inpatient at the [facility] since 10/14/2023. Apparently he has been unwell over the last 24 hours. Staff describe him as more fatigued and weaker than usual. Have a temperature of 101.8 degrees at the facility. The patient was sent here for evaluation of this fever and change in his level of activity. The patient is not forthcoming with any symptoms. He says that he just wants to be left alone. A staff member is with who says there has been no significant coughing. Related Data Allergies Allergy/AdvReac Type Severity Reaction Status Date / Time paliperidone Allergy Unknown Verified 05/22/24 15:55 Review of Systems Review of Systems: Yes all other systems are reviewed and are negative PMFSH Social History Social History Advance Directives: No Advance Directives Information Provided: No Do you have a plan to hurt others: No Plan Physical Exam ED Vital Signs: Vital Signs - 24 hr 05/22/24 15:49 05/22/24 18:35 05/22/24 19:45 Temperature 101.8 F H 99 F 97.7 F Pulse Rate 94 89 84 Respiratory Rate 14 14 16 Blood Pressure 113/79 113/73 107/76 Pulse Oximetry 98 100 99 Oxygen Delivery Method Room Air Room Air Room Air 05/22/24 20:48 05/22/24 21:20 Temperature 97.8 F 97.8 F Pulse Rate 75 75 Respiratory Rate 18 18 Blood Pressure 107/66 107/66 Pulse Oximetry 100 100 Oxygen Delivery Method Room Air Room Air BMI result Body Mass Index 22.3 Const Other: The patient is a 34-year-old male who not very cooperative. For the most part he covered himself with a blanket including his head. Looks somewhat chronically ill but he does not seem obviously acutely ill. No increased work of breathing. No apparent discomfort. HENTX Head: Yes normal to inspection Face and sinus: Yes normal facial exam Mouth: Normal oral and palatal mucosa present and moist mucous membranes Throat: Yes posterior oropharynx normal Eyes General: appearance normal, both eyes and all related structures Neck Neck: Yes no lymphadenopathy and Yes supple Resp Effort & Inspection: normal respiratory effort Auscultation: clear to auscultation bilaterally Cardio Rate: regular rate Rhythm: regular rhythm Heart sounds: S1 normal heart sound present and S2 normal heart sound present GI Other: Abdomen is soft and nontender Skin Other: Skin is dry. No rash. Skin is dry. No rash. Neuro Other: The patient seemed fatigued and generally weak. no obvious cranial nerve deficit. He seemed to have symmetrical tone in his extremities. No obvious focal neurological deficit. Extrem Other: No peripheral edema. No calf swelling or tenderness. No asymmetry. Medications Administered Discontinued Medications Generic Name Dose Route Start Last Admin Trade Name Freq PRN Reason Stop Dose Admin Carbamazepine 300 mg 05/22/24 20:30 05/22/24 21:03 Carbamazepine Er 100 Mg Tab.Er.12h PO 05/22/24 20:31 300 mg ONCE ONE Administration Lactated Ringer's 1,000 mls @ 999 mls/hr 05/22/24 18:00 05/22/24 18:51 Lr IV 05/22/24 19:00 Infused .Q1H1M SARAH Infusion Acetaminophen 1,000 mg in 100 mls @ 400 mls/hr 05/22/24 17:47 05/22/24 18:51 Ofirmev IV 05/22/24 18:01 Infused ONCE ONE Infusion Medical Decision Making Medical Decision Making MDM Narrative: The patient is a 34-year-old with significant chronic mental illness who has been in the local inpatient psychiatric facility for the last 7 months. He was sent here for evaluation of a fever. He is hemodynamically stable. He has tested positive for COVID. I think this is the likely source of his fever. No other source of infection is identified. His CBC is viral infection. I do not think he would be a Paxlovid candidate given the number of medications he is currently taking. Lab Data 05/22/24 16:14 05/22/24 18:54 Labs: Lab Results 05/22/24 05/22/24 05/22/24 Range/Units 15:49 16:14 18:54 WBC 7.5 (4.8-10.8) X10*3/uL RBC 4.45 L (4.60-5.80) X10*6/uL Hgb 13.7 L (14.0-18.0) g/dl Hct 39.1 L (42.0-52.0) % MCV 87.9 (80.0-98.0) fL MCH 30.8 (27.0-33.0) pg MCHC 35.0 (31.0-36.0) g/dl RDW 12.2 (11.0-16.0) % Plt Count 121 L D (160-400) X10*3/uL MPV 11.4 (9.4-12.4) fL Immature Gran % (Auto) 0.3 (0.0-0.4) % Neut % (Auto) 64.7 (45-73) % Lymph % (Auto) 14.9 L (20-40) % [place] % (Auto) 20.0 H (2-11) % Eos % (Auto) 0.0 (0-4) % Baso % (Auto) 0.1 (0-2) % Lymph # (Auto) 1.1 L (1.2-4.9) X10*3/uL [place] # (Auto) 1.5 H (0.1-1.2) X10*3/uL Eos # (Auto) 0.0 (0.0-0.4) X10*3/uL Baso # (Auto) 0.0 (0.0-0.2) X10*3/uL Abs Immat Gran (auto) 0.02 (0.00-0.03) X10*3/uL Absolute Neuts (auto) 4.9 (2.0-8.3) x10*3/uL Absolute Nucleated RBC 0.000 (0.0-0.012) X10*3/uL Nucleated RBC % (auto) 0.0 (0.0-0.2) /100WBC Smear Tech's Comments VERIFIED Sodium 139 (135-145) mmol/L Potassium (3.3-5.1) mmol/L Chloride (96-108) mmol/L Carbon Dioxide (22-29) mmol/L Anion Gap (12-20) BUN (9-16) mg/dL Creatinine (0.5-1.4) mg/dL Estim Creat Clear Calc Estimated GFR POC Glucose 75 (60-115) mg/dL Random Glucose (60-115) mg/dL Lactic Acid (0.5-2.0) mmol/L Calcium (8.4-10.2) mg/dL Total Bilirubin (0.0-1.0) mg/dL Direct Bilirubin (0.0-0.5) mg/dL AST (5-37) U/L ALT (0-40) U/L Alkaline Phosphatase (39-117) U/L C-Reactive Protein (< or = 0.50) mg/dL Total Protein (6.5-8.0) g/dL Albumin (3.5-5.0) g/dL Valproic Acid (50.0-100.0) mcg/mL Carbamazepine (5.0-12.0) mcg/mL Influenza Type A (PCR) (Negative) Influenza Type B (PCR) (Negative) RSV RNA Qual (PCR) (Negative) SARS-CoV-2 RNA (RT-PCR) (Negative) 05/22/24 05/22/24 05/22/24 Range/Units 18:54 18:54 18:54 WBC (4.8-10.8) X10*3/uL RBC (4.60-5.80) X10*6/uL Hgb (14.0-18.0) g/dl Hct (42.0-52.0) % MCV (80.0-98.0) fL MCH (27.0-33.0) pg MCHC (31.0-36.0) g/dl RDW (11.0-16.0) % Plt Count (160-400) X10*3/uL MPV (9.4-12.4) fL Immature Gran % (Auto) (0.0-0.4) % Neut % (Auto) (45-73) % Lymph % (Auto) (20-40) % [place] % (Auto) (2-11) % Eos % (Auto) (0-4) % Baso % (Auto) (0-2) % Lymph # (Auto) (1.2-4.9) X10*3/uL [place] # (Auto) (0.1-1.2) X10*3/uL Eos # (Auto) (0.0-0.4) X10*3/uL Baso # (Auto) (0.0-0.2) X10*3/uL Abs Immat Gran (auto) (0.00-0.03) X10*3/uL Absolute Neuts (auto) (2.0-8.3) x10*3/uL Absolute Nucleated RBC (0.0-0.012) X10*3/uL Nucleated RBC % (auto) (0.0-0.2) /100WBC Smear Tech's Comments Sodium 138 (135-145) mmol/L Potassium 4.3 4.2 (3.3-5.1) mmol/L Chloride 101 101 (96-108) mmol/L Carbon Dioxide 25 (22-29) mmol/L Anion Gap (12-20) BUN (9-16) mg/dL Creatinine (0.5-1.4) mg/dL Estim Creat Clear Calc Estimated GFR POC Glucose (60-115) mg/dL Random Glucose (60-115) mg/dL Lactic Acid (0.5-2.0) mmol/L Calcium (8.4-10.2) mg/dL Total Bilirubin (0.0-1.0) mg/dL Direct Bilirubin (0.0-0.5) mg/dL AST (5-37) U/L ALT (0-40) U/L Alkaline Phosphatase (39-117) U/L C-Reactive Protein (< or = 0.50) mg/dL Total Protein (6.5-8.0) g/dL Albumin (3.5-5.0) g/dL Valproic Acid (50.0-100.0) mcg/mL Carbamazepine (5.0-12.0) mcg/mL Influenza Type A (PCR) (Negative) Influenza Type B (PCR) (Negative) RSV RNA Qual (PCR) (Negative) SARS-CoV-2 RNA (RT-PCR) (Negative) 05/22/24 05/22/24 05/22/24 Range/Units 18:54 18:54 18:54 WBC (4.8-10.8) X10*3/uL RBC (4.60-5.80) X10*6/uL Hgb (14.0-18.0) g/dl Hct (42.0-52.0) % MCV (80.0-98.0) fL MCH (27.0-33.0) pg MCHC (31.0-36.0) g/dl RDW (11.0-16.0) % Plt Count (160-400) X10*3/uL MPV (9.4-12.4) fL Immature Gran % (Auto) (0.0-0.4) % Neut % (Auto) (45-73) % Lymph % (Auto) (20-40) % [place] % (Auto) (2-11) % Eos % (Auto) (0-4) % Baso % (Auto) (0-2) % Lymph # (Auto) (1.2-4.9) X10*3/uL [place] # (Auto) (0.1-1.2) X10*3/uL Eos # (Auto) (0.0-0.4) X10*3/uL Baso # (Auto) (0.0-0.2) X10*3/uL Abs Immat Gran (auto) (0.00-0.03) X10*3/uL Absolute Neuts (auto) (2.0-8.3) x10*3/uL Absolute Nucleated RBC (0.0-0.012) X10*3/uL Nucleated RBC % (auto) (0.0-0.2) /100WBC Smear Tech's Comments Sodium (135-145) mmol/L Potassium (3.3-5.1) mmol/L Chloride (96-108) mmol/L Carbon Dioxide 25 (22-29) mmol/L Anion Gap 17 16 (12-20) BUN 14 14 (9-16) mg/dL Creatinine 0.78 (0.5-1.4) mg/dL Estim Creat Clear Calc Estimated GFR POC Glucose (60-115) mg/dL Random Glucose (60-115) mg/dL Lactic Acid (0.5-2.0) mmol/L Calcium (8.4-10.2) mg/dL Total Bilirubin (0.0-1.0) mg/dL Direct Bilirubin (0.0-0.5) mg/dL AST (5-37) U/L ALT (0-40) U/L Alkaline Phosphatase (39-117) U/L C-Reactive Protein (< or = 0.50) mg/dL Total Protein (6.5-8.0) g/dL Albumin (3.5-5.0) g/dL Valproic Acid (50.0-100.0) mcg/mL Carbamazepine (5.0-12.0) mcg/mL Influenza Type A (PCR) (Negative) Influenza Type B (PCR) (Negative) RSV RNA Qual (PCR) (Negative) SARS-CoV-2 RNA (RT-PCR) (Negative) 05/22/24 05/22/24 05/22/24 Range/Units 18:54 18:54 18:54 WBC (4.8-10.8) X10*3/uL RBC (4.60-5.80) X10*6/uL Hgb (14.0-18.0) g/dl Hct (42.0-52.0) % MCV (80.0-98.0) fL MCH (27.0-33.0) pg MCHC (31.0-36.0) g/dl RDW (11.0-16.0) % Plt Count (160-400) X10*3/uL MPV (9.4-12.4) fL Immature Gran % (Auto) (0.0-0.4) % Neut % (Auto) (45-73) % Lymph % (Auto) (20-40) % [place] % (Auto) (2-11) % Eos % (Auto) (0-4) % Baso % (Auto) (0-2) % Lymph # (Auto) (1.2-4.9) X10*3/uL [place] # (Auto) (0.1-1.2) X10*3/uL Eos # (Auto) (0.0-0.4) X10*3/uL Baso # (Auto) (0.0-0.2) X10*3/uL Abs Immat Gran (auto) (0.00-0.03) X10*3/uL Absolute Neuts (auto) (2.0-8.3) x10*3/uL Absolute Nucleated RBC (0.0-0.012) X10*3/uL Nucleated RBC % (auto) (0.0-0.2) /100WBC Smear Tech's Comments Sodium (135-145) mmol/L Potassium (3.3-5.1) mmol/L Chloride (96-108) mmol/L Carbon Dioxide (22-29) mmol/L Anion Gap (12-20) BUN (9-16) mg/dL Creatinine 0.79 (0.5-1.4) mg/dL Estim Creat Clear Calc 130.5 128.8 Estimated GFR > 60 > 60 POC Glucose (60-115) mg/dL Random Glucose 80 (60-115) mg/dL Lactic Acid (0.5-2.0) mmol/L Calcium (8.4-10.2) mg/dL Total Bilirubin (0.0-1.0) mg/dL Direct Bilirubin (0.0-0.5) mg/dL AST (5-37) U/L ALT (0-40) U/L Alkaline Phosphatase (39-117) U/L C-Reactive Protein (< or = 0.50) mg/dL Total Protein (6.5-8.0) g/dL Albumin (3.5-5.0) g/dL Valproic Acid (50.0-100.0) mcg/mL Carbamazepine (5.0-12.0) mcg/mL Influenza Type A (PCR) (Negative) Influenza Type B (PCR) (Negative) RSV RNA Qual (PCR) (Negative) SARS-CoV-2 RNA (RT-PCR) (Negative) 05/22/24 05/22/24 05/22/24 Range/Units 18:54 18:54 18:54 WBC (4.8-10.8) X10*3/uL RBC (4.60-5.80) X10*6/uL Hgb (14.0-18.0) g/dl Hct (42.0-52.0) % MCV (80.0-98.0) fL MCH (27.0-33.0) pg MCHC (31.0-36.0) g/dl RDW (11.0-16.0) % Plt Count (160-400) X10*3/uL MPV (9.4-12.4) fL Immature Gran % (Auto) (0.0-0.4) % Neut % (Auto) (45-73) % Lymph % (Auto) (20-40) % [place] % (Auto) (2-11) % Eos % (Auto) (0-4) % Baso % (Auto) (0-2) % Lymph # (Auto) (1.2-4.9) X10*3/uL [place] # (Auto) (0.1-1.2) X10*3/uL Eos # (Auto) (0.0-0.4) X10*3/uL Baso # (Auto) (0.0-0.2) X10*3/uL Abs Immat Gran (auto) (0.00-0.03) X10*3/uL Absolute Neuts (auto) (2.0-8.3) x10*3/uL Absolute Nucleated RBC (0.0-0.012) X10*3/uL Nucleated RBC % (auto) (0.0-0.2) /100WBC Smear Tech's Comments Sodium (135-145) mmol/L Potassium (3.3-5.1) mmol/L Chloride (96-108) mmol/L Carbon Dioxide (22-29) mmol/L Anion Gap (12-20) BUN (9-16) mg/dL Creatinine (0.5-1.4) mg/dL Estim Creat Clear Calc Estimated GFR POC Glucose (60-115) mg/dL Random Glucose 80 (60-115) mg/dL Lactic Acid 1.9 (0.5-2.0) mmol/L Calcium 9.0 D 8.9 (8.4-10.2) mg/dL Total Bilirubin 0.6 0.6 (0.0-1.0) mg/dL Direct Bilirubin 0.4 (0.0-0.5) mg/dL AST 303 H (5-37) U/L ALT (0-40) U/L Alkaline Phosphatase (39-117) U/L C-Reactive Protein (< or = 0.50) mg/dL Total Protein (6.5-8.0) g/dL Albumin (3.5-5.0) g/dL Valproic Acid (50.0-100.0) mcg/mL Carbamazepine (5.0-12.0) mcg/mL Influenza Type A (PCR) (Negative) Influenza Type B (PCR) (Negative) RSV RNA Qual (PCR) (Negative) SARS-CoV-2 RNA (RT-PCR) (Negative) 05/22/24 05/22/24 05/22/24 Range/Units 18:54 18:54 18:54 WBC (4.8-10.8) X10*3/uL RBC (4.60-5.80) X10*6/uL Hgb (14.0-18.0) g/dl Hct (42.0-52.0) % MCV (80.0-98.0) fL MCH (27.0-33.0) pg MCHC (31.0-36.0) g/dl RDW (11.0-16.0) % Plt Count (160-400) X10*3/uL MPV (9.4-12.4) fL Immature Gran % (Auto) (0.0-0.4) % Neut % (Auto) (45-73) % Lymph % (Auto) (20-40) % [place] % (Auto) (2-11) % Eos % (Auto) (0-4) % Baso % (Auto) (0-2) % Lymph # (Auto) (1.2-4.9) X10*3/uL [place] # (Auto) (0.1-1.2) X10*3/uL Eos # (Auto) (0.0-0.4) X10*3/uL Baso # (Auto) (0.0-0.2) X10*3/uL Abs Immat Gran (auto) (0.00-0.03) X10*3/uL Absolute Neuts (auto) (2.0-8.3) x10*3/uL Absolute Nucleated RBC (0.0-0.012) X10*3/uL Nucleated RBC % (auto) (0.0-0.2) /100WBC Smear Tech's Comments Sodium (135-145) mmol/L Potassium (3.3-5.1) mmol/L Chloride (96-108) mmol/L Carbon Dioxide (22-29) mmol/L Anion Gap (12-20) BUN (9-16) mg/dL Creatinine (0.5-1.4) mg/dL Estim Creat Clear Calc Estimated GFR POC Glucose (60-115) mg/dL Random Glucose (60-115) mg/dL Lactic Acid (0.5-2.0) mmol/L Calcium (8.4-10.2) mg/dL Total Bilirubin (0.0-1.0) mg/dL Direct Bilirubin (0.0-0.5) mg/dL AST 304 H (5-37) U/L ALT 186 H 188 H (0-40) U/L Alkaline Phosphatase 38 L 39 (39-117) U/L C-Reactive Protein 10.98 H (< or = 0.50) mg/dL Total Protein 7.1 (6.5-8.0) g/dL Albumin (3.5-5.0) g/dL Valproic Acid (50.0-100.0) mcg/mL Carbamazepine (5.0-12.0) mcg/mL Influenza Type A (PCR) (Negative) Influenza Type B (PCR) (Negative) RSV RNA Qual (PCR) (Negative) SARS-CoV-2 RNA (RT-PCR) (Negative) 05/22/24 05/22/24 Range/Units 18:54 18:54 WBC (4.8-10.8) X10*3/uL RBC (4.60-5.80) X10*6/uL Hgb (14.0-18.0) g/dl Hct (42.0-52.0) % MCV (80.0-98.0) fL MCH (27.0-33.0) pg MCHC (31.0-36.0) g/dl RDW (11.0-16.0) % Plt Count (160-400) X10*3/uL MPV (9.4-12.4) fL Immature Gran % (Auto) (0.0-0.4) % Neut % (Auto) (45-73) % Lymph % (Auto) (20-40) % [place] % (Auto) (2-11) % Eos % (Auto) (0-4) % Baso % (Auto) (0-2) % Lymph # (Auto) (1.2-4.9) X10*3/uL [place] # (Auto) (0.1-1.2) X10*3/uL Eos # (Auto) (0.0-0.4) X10*3/uL Baso # (Auto) (0.0-0.2) X10*3/uL Abs Immat Gran (auto) (0.00-0.03) X10*3/uL Absolute Neuts (auto) (2.0-8.3) x10*3/uL Absolute Nucleated RBC (0.0-0.012) X10*3/uL Nucleated RBC % (auto) (0.0-0.2) /100WBC Smear Tech's Comments Sodium (135-145) mmol/L Potassium (3.3-5.1) mmol/L Chloride (96-108) mmol/L Carbon Dioxide (22-29) mmol/L Anion Gap (12-20) BUN (9-16) mg/dL Creatinine (0.5-1.4) mg/dL Estim Creat Clear Calc Estimated GFR POC Glucose (60-115) mg/dL Random Glucose (60-115) mg/dL Lactic Acid (0.5-2.0) mmol/L Calcium (8.4-10.2) mg/dL Total Bilirubin (0.0-1.0) mg/dL Direct Bilirubin (0.0-0.5) mg/dL AST (5-37) U/L ALT (0-40) U/L Alkaline Phosphatase (39-117) U/L C-Reactive Protein (< or = 0.50) mg/dL Total Protein 7.2 (6.5-8.0) g/dL Albumin 4.0 4.0 (3.5-5.0) g/dL Valproic Acid 106.4 H (50.0-100.0) mcg/mL Carbamazepine 8.2 (5.0-12.0) mcg/mL Influenza Type A (PCR) NEGATIVE (Negative) Influenza Type B (PCR) NEGATIVE (Negative) RSV RNA Qual (PCR) NEGATIVE (Negative) SARS-CoV-2 RNA (RT-PCR) POSITIVE A (Negative) Discharge Plan Discharge Clinical Impression: Acute febrile illness, COVID Patient Disposition: Home, Self-Care Additional Instructions: His fever seems to be the result of COVID. He has tested positive for COVID today. His chest x-ray is negative. His white count is 7.5. His differential shows 64% neutrophils, 15% lymphocytes, 20% monocytes. His chemistries show transaminitis but with normal bilirubins and normal alk phos. His abdomen is benign. Other than the COVID he does not seem to have any alternative source of fever. I think it would be appropriate for him to be managed symptomatically. Return to the emergency room if worse. Referrals: [facility] [Outside] (Fever, COVID) Interventions: ED Discharge Assessment Last Done: 05/22/24 21:20 Discharge Date/Time: 05/22/24 21:20 Print Language: Bangladeshi
[2024-05-22] MEDS: Lactated Ringers 1,000 ML 999 ML IV (18:00)
[2024-05-22 18:35] VITALS: BP 113/73; PULSE 89; RESP 14; TEMP 37.2; O2SAT 100
[2024-05-22] MEDS: Acetaminophen 1,000 MG/100 ML PIGGYBACK 400 MG IV (18:35)
[2024-05-22 19:18] LABS: Lactic Acid 1.9 mmol/L (0.5-2.0)
[2024-05-22 19:21] LABS: Alanine Aminotransferase 186 U/L (0-40); Alkaline Phosphatase 38 U/L (39-117); Anion Gap 17 (12-20); Aspartate Amino Transferase 303 U/L (5-37); Bilirubin Total 0.6 mg/dL (0.0-1.0); Blood Urea Nitrogen 14 mg/dL (9-16); Carbon Dioxide 25 mmol/L (22-29); Chloride 101 mmol/L (96-108); Creatinine Clr Calc Pharmacy 130.5; Estimated Glomerular Filt Rate > 60; Glucose Random 80 mg/dL (60-115); Potassium 4.3 mmol/L (3.3-5.1); Sodium 139 mmol/L (135-145); Total Protein 7.1 g/dL (6.5-8.0)
[2024-05-22 19:22] LABS: Alanine Aminotransferase 188 U/L (0-40); Alkaline Phosphatase 39 U/L (39-117); Anion Gap 16 (12-20); Aspartate Amino Transferase 304 U/L (5-37); Bilirubin Direct 0.4 mg/dL (0.0-0.5); Bilirubin Total 0.6 mg/dL (0.0-1.0); Blood Urea Nitrogen 14 mg/dL (9-16); C Reactive Protein 10.98 mg/dL (< or = 0.50); Calcium 8.9 mg/dL (8.4-10.2); Carbon Dioxide 25 mmol/L (22-29); Chloride 101 mmol/L (96-108); Creatinine Clr Calc Pharmacy 128.8; Estimated Glomerular Filt Rate > 60; Glucose Random 80 mg/dL (60-115); Potassium 4.2 mmol/L (3.3-5.1); Sodium 138 mmol/L (135-145); Total Protein 7.2 g/dL (6.5-8.0)
[2024-05-22 19:23] LABS: Carbamazepine Tegretol 8.2 mcg/mL (5.0-12.0); Valproate 106.4 mcg/mL (50.0-100.0)
[2024-05-22 19:42] LABS: Influenza A PCR NEGATIVE (Negative); Influenza B PCR NEGATIVE (Negative); Resp Syncy Virus RNA Qual PCR NEGATIVE (Negative); SARS COV2 PCR INHOUSE POSITIVE (Negative)
[2024-05-22 19:45] VITALS: BP 107/76; PULSE 84; RESP 16; TEMP 36.5; O2SAT 99
--- NOTE | 2024-05-22 20:23 | PC.NURSE ---
RN called and spoke with Ivonne and nurse from [facility] unit at [place]. Per the nurse, the pt is okay to return back despite current COVID19 diagnosis. 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
[2024-05-22 20:48] VITALS: BP 107/66; PULSE 75; RESP 18; TEMP 36.6; O2SAT 100
[2024-05-22] MEDS: carBAMazepine ER 100 MG TAB.ER.12H 300 MG PO (21:03)
[2024-05-22 21:20] VITALS: BP 107/66; PULSE 75; RESP 18; TEMP 36.6; O2SAT 100
== END 2024-05-22 21:20 | disposition home or self-care (01) ==
PROVIDERS: Emergency Provider Emergency Medicine
DX: U07.1 COVID-19 (principal); R50.9 Fever, unspecified; R53.83 Other fatigue; R53.1 Weakness; E11.9 Type 2 diabetes mellitus without complications; G40.909 Epilepsy, unspecified, not intractable, without status epilepticus; Z79.899 Other long term (current) drug therapy
CPT/HCPCS: 0241U; 36415; 71045; 80048; 80053; 80076; 80156; 80164; 82947; 83605; 85025; 86140; 87040; 93005; 96365; 96367; 99284; 99285; J0131; J7120

== ENCOUNTER → 2024-05-22 15:50 | Outpatient (BNV) | payer MEDICAID, SELFPAY | PROVIDERS: Emergency Provider Emergency Medicine; Visit Provider Internal Medicine | DX: R53.83 Other fatigue (principal) | CPT/HCPCS: 93010 ==

== ENCOUNTER 2024-05-27 14:05 | Inpatient (IN) | payer MEDICAID, SELFPAY ==
--- NOTE | ~2024-05-27 | XR_ITS ---
EXAMINATION: XR CHEST CLINICAL INFORMATION: Lethargy. Covid + COMPARISON: Chest radiograph dated May 22, 2024. TECHNIQUE: Frontal view of the chest was obtained. FINDINGS: Heart size is normal. The lungs are clear. No pneumothorax or pleural effusion. No acute osseous abnormality. XR/XR chest 1V IMPRESSION: No acute cardiopulmonary disease. Electronically signed by: Luigi Kovacs DO 05/27/2024 04:51 PM EDT
--- NOTE | ~2024-05-27 | US_ITS ---
EXAMINATION: US ABDOMEN LIMITED WITH LIVER ELASTOGRAPHY CLINICAL INFORMATION: Elevated LFTs COMPARISON: None available. TECHNIQUE: Real-time imaging of the abdominal viscera. Noninvasive ultrasound liver fibrosis assessment is performed using Teja ElastPQ point quantification shear wave elastography (pSWE) with a 5 MHz transducer. Multiple elastography samples are obtained. FINDINGS: PANCREAS: Not visualized due to overlying bowel gas LIVER: Normal. The liver demonstrates normal size, contour and echogenicity. No focal lesion or intrahepatic biliary duct dilatation. The right lobe measures 13.7 cm in length. The left lobe measures 8.4 cm in length. Hepatopedal flow direction noted within the portal vein. Shear wave elastography provides a median stiffness of 1.25 m/s (reference: normal median stiffness is 0.81 - 1.22 m/s). The IQR/median stiffness to assess sampling precision is 0.07 (reference: optimal IQR/median stiffness is under 0.3). GALLBLADDER: Normal. The gallbladder is physiologically distended without evidence of stones, sludge, polyps, wall thickening or pericholecystic fluid. COMMON BILE DUCT: Normal in caliber measuring 0.2 cm in diameter. RIGHT KIDNEY: Normal. No hydronephrosis. No renal calculi or focal parenchymal lesions. The kidney measures 9.5 cm in maximum dimension. FREE FLUID: None. US/US abdomen you w elastography IMPRESSION: 1. Compensated advanced chronic liver disease 2. Elastography: Liver elastography measurements are consistent with a minimal risk for clinically significant liver fibrosis (METAVIR Stage F0-F1). Electronically signed by: Blade Jaramillo MD 06/01/2024 08:23 PM EDT
[2024-05-27 14:10] VITALS: BP 105/78; BP 118/81; PULSE 71; PULSE 82; RESP 12; TEMP 36.4; O2SAT 98; O2SAT 99; BMI 22.2
--- NOTE | 2024-05-27 14:22 | ED_ITS ---
HPI - General Adult General Chief complaint: General Medical Stated complaint: LETHARGY,COVID+ PER EMS Time Seen by Provider: 05/27/24 14:22 Source: patient, EMS, RN notes reviewed and old records reviewed Mode of arrival: EMS History of Present Illness ED Provider: Leyla Ruiz PA-C HPI narrative: 34-year-old male with past medical history of schizoaffective disorder, bipolar type, diabetes, HLD, seizure disorder on Depakote, transaminitis and extrapyramidal movement disorder, presenting to ED via EMS from [facility] [place] on [address] complaining of increasing lethargy, poor p.o. intake, & COVID-19 + since 05/22. Staff member at bedside states patient's symptoms have been going on for a long time however worsening. Patient is still actively responsive to questions. Staff member reports weight loss over the past few months/since his arrival at their facility. Remaining history limited as patient is not cooperative with history/physical Related Data Home Medications ?Medication ?Instructions ?Recorded ?Confirmed acetaminophen 325 mg tablet 650 mg PO Q8H PRN Pain (Scale 05/27/24 05/27/24 (Tylenol) Score 1-3) atorvastatin 20 mg tablet 20 mg PO BEDTIME 05/27/24 05/27/24 benztropine 1 mg tablet 1 mg PO Q8H PRN EPS 05/27/24 05/27/24 benztropine 2 mg tablet 2 mg PO BID 05/27/24 05/27/24 carbamazepine 300 mg 300 mg PO BID 05/27/24 05/27/24 capsule,extended release [id number] divalproex 250 mg tablet,extended 250 mg PO BEDTIME 05/27/24 05/27/24 release 24 hr (Depakote ER) divalproex 500 mg tablet,extended 1,500 mg PO BEDTIME 05/27/24 05/27/24 release 24 hr (Depakote ER) fenofibrate nanocrystallized 145 145 mg PO BEDTIME 05/27/24 05/27/24 mg tablet haloperidol 10 mg tablet 10 mg PO DAILY PRN Agitation 05/27/24 05/27/24 haloperidol decanoate 100 mg/mL 200 mg IM Q4W 05/27/24 05/27/24 intramuscular solution haloperidol lactate 5 mg/mL 5 mg IM BEDTIME PRN Psychosis 05/27/24 05/27/24 injection solution ibuprofen 600 mg tablet 600 mg PO Q6H PRN Fever Greater 05/27/24 05/27/24 then 100? nirmatrelvir 300 mg (150 mg 3 ea PO BID 05/27/24 05/27/24 x2)-ritonavir 100 mg tablet,dose pack (Paxlovid) Allergies Allergy/AdvReac Type Severity Reaction Status Date / Time paliperidone Allergy Unknown Verified 05/27/24 14:22 Review of Systems 2 Review of Systems: Yes all other systems are reviewed and are negative Constitutional: Constitutional: Reports as per [facility] Past Medical History Attestation statement: The following information was validated with the patient. Source: old records reviewed Medical History (Updated 05/27/24 @ 19:46 by TIGRE Kraus) Schizoaffective disorder, bipolar type Extrapyramidal and movement disorder Transaminitis HLD (hyperlipidemia) Seizure disorder Encephalomalacia TBI (traumatic brain injury) Social History Social History Comment: m/s admit Patient Tobacco Use Status: Never used Tobacco Smoked in Last 30 Days: No Use of substances other than those prescribed or required for medical reasons: No Advance Directives: No Advance Directives Information Provided: Yes Nutrition Risks: Poor intake 0-25% >4 days Physical Exam ED Vital Signs: Vital Signs - 24 hr 05/27/24 14:10 05/27/24 16:00 Temperature 97.5 F 97.5 F Pulse Rate 71 61 Respiratory Rate 12 14 Blood Pressure 118/81 108/59 L Pulse Oximetry 98 99 Oxygen Delivery Method Room Air Room Air BMI result Body Mass Index 22.2 Const General: cooperative, healthy appearing and no acute distress Orientation/consciousness: patient oriented x3 Limitations: no limitations HENMT Other: dry lips, moist mucous membranes Head: Yes normal to inspection and Yes atraumatic Ears: hearing grossly normal bilaterally General nose exam: Normal external nose present Face and sinus: Yes normal facial exam Eyes General: appearance normal, both eyes and all related structures EOM: EOMs intact bilaterally Neck Neck: Yes normal visual inspection and Yes no meningeal signs Resp Effort & Inspection: normal respiratory effort and no respiratory distress Auscultation: clear to auscultation bilaterally Cardio Rate: regular rate Heart sounds: S1 normal heart sound present and S2 normal heart sound present GI Inspection: Yes normal to inspection Palpation (GI): Soft to palpation, nontender, no guarding and not rigid Skin Rashes: no rashes Wounds: no wounds Neuro General: patient oriented x3, tone normal, moves all extremities and no meningeal signs Cranial nerves: Yes CN's II-XII intact bilaterally Extrem General: Yes normal to inspection Course Course Course Narrative: -1607--no leukocytosis. H/H with slight drop from priors -chronically elevated AST/ALT -ammonia elevated to 139 > we will give p.o. lactulose XR chest 1V IMPRESSION: No acute cardiopulmonary disease. > 1712--case discussed with hospitalist who accepted admission Medications Administered Generic Name Dose Route Start Last Admin Trade Name Freq PRN Reason Stop Dose Admin Enoxaparin Sodium 40 mg 05/27/24 18:30 05/27/24 19:02 Enoxaparin Sodium 40 Mg/0.4 Ml Syringe SUBCUT Not Given Q24H SARAH Lactated Ringer's 1,000 mls @ 100 mls/hr 05/27/24 18:30 05/27/24 19:00 Lr IVCONT 05/28/24 04:29 100 mls/hr .Q10H SARAH Administration Discontinued Medications Generic Name Dose Route Start Last Admin Trade Name Freq PRN Reason Stop Dose Admin Lactated Ringer's 1,000 mls @ 999 mls/hr 05/27/24 14:45 05/27/24 16:43 Lr IV 05/27/24 15:45 Infused .Q1H1M SARAH Infusion Lactulose 30 gm 05/27/24 16:06 05/27/24 16:43 Lactulose 20 Gm/30 Ml Solution PO 05/27/24 16:07 30 gm ONCE ONE Administration Medical Decision Making Medical Decision Making [facility] Narrative: 34-year-old male with past medical history of schizoaffective disorder, bipolar type, diabetes, HLD, seizure disorder on Depakote, transaminitis and extrapyramidal movement disorder, presenting to ED via EMS from [facility] [place] on [address] complaining of increasing lethargy, poor p.o. intake, & COVID-19 + since 05/22. On exam vital signs stable, NAD, nontoxic appearing, physical exam as noted above. Patient uncooperative with history/physical exam. Does not appear acutely ill. Abdomen soft/nontender. Concern for continued COVID-19/viral illness vs metabolic abnormalities. Rule out infectious etiology. Low suspicion for ICH/meningitis/encephalitis Plan: Repeat labs, UA, tox screen, IVF Please refer to course for remaining clinical decision making, interpretation of labs/imaging results, and discussions with consultants and/or family members. Differential Diagnosis Differential Diagnoses: The differential diagnosis associated with the presentation includes As above Admission/Observation Consideration of admission/observation: Escalation of care including admission/observation considered Consult Healthcare Provider Management of the patient was discussed with: Hospitalist and Behavioral Health Provider Lab Data MDM Lab Attestation statement: I reviewed the patient's lab results. 05/27/24 15:00 05/27/24 15:00 Labs: Lab Results 05/27/24 Range/Units 15:00 WBC 4.8 (4.8-10.8) X10*3/uL RBC 4.17 L (4.60-5.80) X10*6/uL Hgb 12.3 L (14.0-18.0) g/dl Hct 37.7 L (42.0-52.0) % MCV 90.4 (80.0-98.0) fL MCH 29.5 (27.0-33.0) pg MCHC 32.6 (31.0-36.0) g/dl RDW 12.6 (11.0-16.0) % Plt Count 169 D (160-400) X10*3/uL MPV 11.2 (9.4-12.4) fL Immature Gran % (Auto) 0.2 (0.0-0.4) % Neut % (Auto) 46.9 (45-73) % Lymph % (Auto) 44.8 H (20-40) % [place] % (Auto) 7.5 (2-11) % Eos % (Auto) 0.4 (0-4) % Baso % (Auto) 0.2 (0-2) % Lymph # (Auto) 2.2 (1.2-4.9) X10*3/uL [place] # (Auto) 0.4 (0.1-1.2) X10*3/uL Eos # (Auto) 0.0 (0.0-0.4) X10*3/uL Baso # (Auto) 0.0 (0.0-0.2) X10*3/uL Abs Immat Gran (auto) 0.01 (0.00-0.03) X10*3/uL Absolute Neuts (auto) 2.3 (2.0-8.3) x10*3/uL Absolute Nucleated RBC 0.000 (0.0-0.012) X10*3/uL Nucleated RBC % (auto) 0.0 (0.0-0.2) /100WBC Sodium 142 (135-145) mmol/L Potassium 4.1 (3.3-5.1) mmol/L Chloride 106 (96-108) mmol/L Carbon Dioxide 29 (22-29) mmol/L Anion Gap 11 L (12-20) BUN 14 (9-16) mg/dL Creatinine 0.80 (0.5-1.4) mg/dL Estim Creat Clear Calc 130.4 Estimated GFR > 60 Random Glucose 101 (60-115) mg/dL Calcium 9.2 (8.4-10.2) mg/dL Magnesium 1.9 (1.6-2.6) mg/dL Total Bilirubin 0.6 (0.0-1.0) mg/dL AST 48 H (5-37) U/L ALT 55 H (0-40) U/L Alkaline Phosphatase 36 L (39-117) U/L Ammonia 139 H (13-55) umol/L Total Creatine Kinase 28 L (38-174) U/L Total Protein 7.2 (6.5-8.0) g/dL Albumin 3.9 (3.5-5.0) g/dL Valproic Acid 98.8 (50.0-100.0) mcg/mL Carbamazepine 15.5 H* (5.0-12.0) mcg/mL Radiology Impression Discussion of test interpretation with radiology: I have reviewed the radiologist's reading. Independent Historian Clinical information obtained from an independent historian. History obtained from or confirmed by: EMS External Record Review External record reviewed: Inpatient record, Office record, Outpatient record, Prior outpatient labs, Prior outpatient radiology, Primary care record and Outside ED record Tests considered The following testing was considered but not selected: As above Social Determinants Patient?s care significantly limited by Social Determinants of Health including: Inadequate housing, Low income, Problems related to primary support group, Unemployment, Problems related to employment and Other Social Determinant of Health Discharge Plan Discharge Clinical Impression: Encephalopathy, COVID-19 Patient Disposition: Admitted As Inpatient Interventions: Admission Worksheet (ED) Last Done: 05/27/24 19:06 Discharge Date/Time: 05/27/24 20:18
[2024-05-27 15:05] LABS: MANUAL DIFF FLAG NO
[2024-05-27 15:13] LABS: Ammonia 139 umol/L (13-55)
[2024-05-27 15:18] LABS: Basophils Percent Auto 0.2 % (0-2); Eosinophils Percent Auto 0.4 % (0-4); Hematocrit 37.7 % (42.0-52.0); Hemoglobin 12.3 g/dl (14.0-18.0); Imm Gran Abs Auto 0.01 X10*3/uL (0.00-0.03); Imm Gran Pct Auto 0.2 % (0.0-0.4); Lymphocytes Absolute Auto 2.2 X10*3/uL (1.2-4.9); Lymphocytes Percent Auto 44.8 % (20-40); Mean Corpuscular HGB Conc 32.6 g/dl (31.0-36.0); Mean Corpuscular Hemoglobin 29.5 pg (27.0-33.0); Mean Corpuscular Volume 90.4 fL (80.0-98.0); Mean Platelet Volume 11.2 fL (9.4-12.4); Monocytes Absolute Auto 0.4 X10*3/uL (0.1-1.2); Monocytes Percent Auto 7.5 % (2-11); Neutrophils Absolute Auto 2.3 x10*3/uL (2.0-8.3); Neutrophils Percent Auto 46.9 % (45-73); Platelet Count 169 X10*3/uL (160-400); Red Blood Count 4.17 X10*6/uL (4.60-5.80); Red Cell Distribution Width 12.6 % (11.0-16.0); White Blood Count 4.8 X10*3/uL (4.8-10.8)
[2024-05-27 15:20] LABS: Magnesium 1.9 mg/dL (1.6-2.6)
[2024-05-27 15:21] LABS: Alanine Aminotransferase 55 U/L (0-40); Albumin Level 3.9 g/dL (3.5-5.0); Alkaline Phosphatase 36 U/L (39-117); Anion Gap 11 (12-20); Aspartate Amino Transferase 48 U/L (5-37); Bilirubin Total 0.6 mg/dL (0.0-1.0); Blood Urea Nitrogen 14 mg/dL (9-16); Calcium 9.2 mg/dL (8.4-10.2); Carbon Dioxide 29 mmol/L (22-29); Chloride 106 mmol/L (96-108); Creatinine Clr Calc Pharmacy 130.4; Estimated Glomerular Filt Rate > 60; Glucose Random 101 mg/dL (60-115); Potassium 4.1 mmol/L (3.3-5.1); Sodium 142 mmol/L (135-145); Total Protein 7.2 g/dL (6.5-8.0)
--- OUTSIDE RECORDS SUMMARY | 2024-05-27 15:24 | XMS_ITS | Patient Health Record ---
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 Role Phone [facility] Provi chato Unavailable Nehal Moralez Unavailable Unavailable [...] CONTACT (V01.1) Active confirmed Exposure to tuberculosis (5109271342637) Problem Psychotic (298.9) Active confirmed Psychotic disorder (16554014) Problem Body mass index [BMI] 28.0-28.9, adult (Z68.28) Active confirmed Body mass ind ex 25-29 - overweight (795465464) Problem Sheltered homelessness (Z59.01) Active confirmed Sheltered homelessness ([id number] ) PLAN OF TREATMENT No Information Insurance Providers Payer Name Payer Address Payer Phone Subscriber Number Group Number Insured Name Patient Relationship to Insured Coverage Start Date Coverage End Date [place] Medicaid C3 [address] [place], [place] [id number] Leif Leblanc Self - patient is the insured MEDICAL (GENERAL) HISTORY Medical History History ICD Code psychiatric disorder, r/o schizoaffectiv e disorder seizures since age 11 yrs old tobacco use hx alcohol use marijuanna use depression Hospitalization History Reason Date(Month/Year) [facility]-section #35 03/2021 [facility], unsure of name of facility [facility], Psych 06/2014
[2024-05-27] MEDS: Lactated Ringers 1,000 ML 999 ML IV (15:32)
[2024-05-27 15:38] LABS: Valproate 98.8 mcg/mL (50.0-100.0)
[2024-05-27 16:00] VITALS: BP 108/59; PULSE 61; RESP 14; TEMP 36.4; O2SAT 99
[2024-05-27] MEDS: Lactulose 20 GM/30 ML SOLUTION 30 GM PO (16:43)
--- NOTE | 2024-05-27 17:38 | PM.IMHP ---
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 intake. Patient presented to the ED 5 days prior on 05/22 for evaluation of fever and lethargy and was found to be COVID positive. Discharge back to facility on d. Per staff, pt has since continued to have poor p.o. intake and self care and presents today due to increased lethargy. Has not had any noticeable cough or SOB. Staff note pt has severe schizophremia and can often appear nearly catatonic, though does occasionally speak to staff and residents. Has apparently lost 50+ lbs in last 4 months. Pt himself here in the ED is minimally interactive, nearly nonverbal during interview and exam, and only occasionally following basic commands. Patient's only verbal response was to state his name, though he did this several minutes after the question was initially posed. Pt has been a resident at [facility] since 10/14/2023. In the ED pt with slightly soft BP 108/59, vitals otherwise stable and WNL. Labs were significant for AST 48, ALT 55, alk-phos 36, and ammonia 139. No leukocytosis. Stable H&H. No significant electrolyte abnormalities. Valproic acid therapeutic at 98.8. CXR showed no acute cardiopulmonary disease. Pt was treated with IVF and lactulose 30 g p.o.. Pt will be admitted to the hospital for treatment and further evaluation of acute metabolic encephalopathy in the setting of likely iatrogenic hyperammonemia. Review of Systems Review of Systems: Yes Unobtainable due to mental status [facility] Medical History (Updated 05/27/24 @ 19:46 by TIGRE Kraus) Schizoaffective disorder, bipolar type Extrapyramidal and movement disorder Transaminitis HLD (hyperlipidemia) Seizure disorder Encephalomalacia TBI (traumatic brain injury) Social History Patient Tobacco Use Status: Never used Tobacco Smoked in Last 30 Days: No Use of substances other than those prescribed or required for medical reasons: No Advance Directives: No Advance Directives Information Provided: Yes Nutrition Risks: Poor intake 0-25% >4 days Meds Allergies Allergy/AdvReac Type Severity Reaction Status Date / Time paliperidone Allergy Unknown Verified 05/27/24 14:22 Home Medications ?Medication ?Instructions ?Recorded ?Confirmed ?Last Taken ?Type acetaminophen 325 mg tablet 650 mg PO Q8H PRN Pain (Scale 05/27/24 05/27/24 Unknown History (Tylenol) Score 1-3) atorvastatin 20 mg tablet 20 mg PO BEDTIME 05/27/24 05/27/24 05/26/24 20:40 History benztropine 1 mg tablet 1 mg PO Q8H PRN EPS 05/27/24 05/27/24 05/27/24 10:57 History benztropine 2 mg tablet 2 mg PO BID 05/27/24 05/27/24 05/27/24 10:57 History carbamazepine 300 mg 300 mg PO BID 05/27/24 05/27/24 05/27/24 10:57 History capsule,extended release [id number] divalproex 250 mg tablet,extended 250 mg PO BEDTIME 05/27/24 05/27/24 05/26/24 20:40 History release 24 hr (Depakote ER) divalproex 500 mg tablet,extended 1,500 mg PO BEDTIME 05/27/24 05/27/24 05/26/24 20:40 History release 24 hr (Depakote ER) fenofibrate nanocrystallized 145 145 mg PO BEDTIME 05/27/24 05/27/24 05/26/24 20:40 History mg tablet haloperidol 10 mg tablet 10 mg PO DAILY PRN Agitation 05/27/24 05/27/24 05/24/24 10:57 History haloperidol decanoate 100 mg/mL 200 mg IM Q4W 05/27/24 05/27/24 Unknown History intramuscular solution haloperidol lactate 5 mg/mL 5 mg IM BEDTIME PRN Psychosis 05/27/24 05/27/24 05/24/24 10:57 History injection solution ibuprofen 600 mg tablet 600 mg PO Q6H PRN Fever Greater 05/27/24 05/27/24 Unknown History then 100? nirmatrelvir 300 mg (150 mg 3 ea PO BID 05/27/24 05/27/24 05/27/24 10:57 History x2)-ritonavir 100 mg tablet,dose pack (Paxlovid) Physical Exam Vital Signs and Narrative: Vital Signs: Last Vital Signs Temp 97.5 F 05/27/24 16:00 Pulse 61 05/27/24 16:00 Resp 14 05/27/24 16:00 BP 108/59 L 05/27/24 16:00 Pulse Ox 99 05/27/24 16:00 O2 Del Method Room Air 05/27/24 16:00 BMI result Body Mass Index 22.2 General: Awake and alert, unable to assess orientation due to lack of participating in exam. Occasionally following basic commands. Resting comfortably in bed, in no acute distress. Resp: CTA bilaterally CVS: S1, S2, RRR GI: +BS, NT, no distention Skin: Warm, dry Neuro: Cranial nerves II-XII grossly intact bilaterally. Motor grossly intact bilaterally Extremities: No edema Results Labs 05/27/24 15:00 05/27/24 15:00 Labs: Laboratory Results - last 24 hr 05/27/24 15:00 MCV 90.4 MCH 29.5 MCHC 32.6 RDW 12.6 Plt Count 169 D MPV 11.2 Immature Gran % (Auto) 0.2 Neut % (Auto) 46.9 Lymph % (Auto) 44.8 H [place] % (Auto) 7.5 Eos % (Auto) 0.4 Baso % (Auto) 0.2 Lymph # (Auto) 2.2 [place] # (Auto) 0.4 Eos # (Auto) 0.0 Baso # (Auto) 0.0 Abs Immat Gran (auto) 0.01 Absolute Neuts (auto) 2.3 Absolute Nucleated RBC 0.000 Nucleated RBC % (auto) 0.0 Anion Gap 11 L Estim Creat Clear Calc 130.4 Estimated GFR > 60 Random Glucose 101 Calcium 9.2 Magnesium 1.9 Total Bilirubin 0.6 AST 48 H ALT 55 H Alkaline Phosphatase 36 L Ammonia 139 H Total Creatine Kinase 28 L Total Protein 7.2 Albumin 3.9 Valproic Acid 98.8 Imaging Radiologist's Impressions: Impressions Chest X-Ray 05/27/24 14:45 IMPRESSION: No acute cardiopulmonary disease. 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 intake. Pt will be admitted to the hospital for treatment and further evaluation of acute metabolic encephalopathy in the setting of likely iatrogenic hyperammonemia. Acute metabolic encephalopathy in the setting of hyperammonemia and transaminitis Patient with increased lethargy, reduced p.o. intake, has been minimally interactive, worse past 2-3 days AST 48, ALT 55, and ammonia 139 Likely iatrogenic due to hepatotoxic medications: Depakote, Haldol, statin, Tegretol, and Paxlovid Carbamazepine elevated at 15.5, valproic acid therapeutic at 98.8. Patient given lactulose 30 g in the ED Will hold statin and Tegretol Reduced Depakote to 500 mg IV at bedtime and Haldol to 2.5 mg IM Q 4 p.r.n. for agitation Discontinue Paxlovid Trend ammonia, LFTs Monitor mentation Seizure disorder Hold carbamazepine, reduce Depakote due to transaminitis Ativan 2 mg IM p.r.n. for seizure activity Seizure precautions Neurology consult for medication management COVID Tested positive on 05/22 Increased lethargy and reduced p.o. intake, otherwise asymptomatic: no fever, cough, SOB Discontinue Paxlovid Airborne and contact precautions HLD Hold statin, fenofibrate Mood disorder Med changes as above Extrapyramidal movement disorder Continue benztropine Full Code Attending:?Dr. Joseph DVT Prophylaxis: Lovenox Pt will require a hospitalization of at least two nights for treatment of?acute metabolic encephalopathy in the setting of likely iatrogenic hyperammonemia. Patient will require hospital level care for close monitoring of labs, vitals, and mentation, as well as specialist consultation with Neurology. Quality Stroke Does the patient have a stroke diagnosis?: No VTE Prior VTE?: No VTE Risk Level:: Medical - moderate - high VTE Device Contraindication: Treatment Not Indicated VTE Drug Contraindication: N/A - Med Ordered
[2024-05-27 18:25] VITALS: BP 95/57; PULSE 60; RESP 18; TEMP 36.5; O2SAT 100
--- NOTE | 2024-05-27 18:36 | PHA.MEDREC ---
Pharmacy Consult ? Medication Reconciliation Pharmacy has completed the medication reconciliation. Confirmed medications with list provided by facility. Called to get confirmation when he last got his Haloperidol injection since its every 4 weeks and the paperwork states only\ first dose 04/13/24 and nothing else but facility was busy and I ended up leaving a voicemail to confirm the date, we will update the last taken date if they call us back.
--- NOTE | 2024-05-27 18:40 | PHA.MEDREC ---
Addendum entered by Gonzalo Gallegos [facility] 05/27/24 19:03: med rec reviewed Original Note: Pharmacy Consult ? Medication Reconciliation Pharmacy has completed the medication reconciliation. Confirmed medications with list provided by facility. Called to get confirmation when he last got his Haloperidol injection since its every 4 weeks and the paperwork states only\ first dose 04/13/24 and nothing else but facility was busy and I ended up leaving a voicemail to confirm the date, we will update the last taken date if they call us back. Patient not able to talk and person at bedside for patient is not sure of patients medications or last dose of the injection.
[2024-05-27] MEDS: Lactated Ringers 1,000 ML 100 ML IVCONT (19:00)
[2024-05-27 19:18] LABS: Carbamazepine Tegretol 15.5 mcg/mL (5.0-12.0)
[2024-05-27 20:36] VITALS: BP 106/74; PULSE 65; RESP 19; TEMP 36.3; O2SAT 100
[2024-05-27 20:55] VITALS: BMI 22.1
[2024-05-27] MEDS: 0.9 % Sodium Chloride Flush 3 ML SYRINGE IVFLUSH (21:30)
[2024-05-27] MEDS: Valproic Acid (as Sodium Salt) 500 MG in Dextrose 5 % 50 ML 55 MG IV (21:30)
[2024-05-27 23:44] VITALS: BP 109/71; PULSE 62; RESP 15; TEMP 36.6; O2SAT 100
[2024-05-28 03:40] VITALS: BP 113/56; PULSE 58; RESP 16; TEMP 36.1; O2SAT 95
[2024-05-28 07:28] LABS: Ammonia 119 umol/L (13-55)
[2024-05-28 07:51] LABS: Alanine Aminotransferase 40 U/L (0-40); Albumin Level 3.3 g/dL (3.5-5.0); Alkaline Phosphatase 32 U/L (39-117); Anion Gap 11 (12-20); Aspartate Amino Transferase 41 U/L (5-37); Bilirubin Total 0.5 mg/dL (0.0-1.0); Blood Urea Nitrogen 11 mg/dL (9-16); Calcium 8.6 mg/dL (8.4-10.2); Carbon Dioxide 27 mmol/L (22-29); Chloride 106 mmol/L (96-108); Creatinine Clr Calc Pharmacy 146.5; Estimated Glomerular Filt Rate > 60; Glucose Random 74 mg/dL (60-115); Potassium 3.8 mmol/L (3.3-5.1); Sodium 140 mmol/L (135-145); Total Protein 6.1 g/dL (6.5-8.0)
[2024-05-28 08:00] VITALS: BP 108/72; PULSE 54; RESP 18; TEMP 36.3; O2SAT 98
[2024-05-28] MEDS: Benztropine Mesylate 1 MG TABLET 2 MG PO ×2 (09:31→19:59)
[2024-05-28] MEDS: 0.9 % Sodium Chloride Flush 3 ML SYRINGE IVFLUSH ×3 (09:31→20:19)
--- NOTE | 2024-05-28 10:59 | MHC.CM.PN ---
Pt resides at [facility] he is on the [facility] unit. He has a guardian, Christine Viera: [phone], message left for her. Pt.'s DCP is to return to [place] via BLS at [place]. CM will follow and assist with DC plan.
--- NOTE | 2024-05-28 11:33 | HO.PM.IMPN ---
Subjective Subjective Date of Service: 05/28/24 Interval History: seen and evaluated this morning more alert but not much interactive had bowel movement Ammonia still elevated Tolerated diet no other events Review of Systems Review of Systems: Yes all other systems are reviewed and are negative Physical Exam Vital Signs: Vital Signs: Last Vital Signs Temp 97.4 F 05/28/24 08:00 Pulse 54 05/28/24 08:00 Resp 18 05/28/24 08:00 BP 108/72 05/28/24 08:00 Pulse Ox 98 05/28/24 08:00 O2 Del Method Room Air 05/28/24 08:00 BMI result Body Mass Index 22.1 Const: Other: Constitutional : sleepy and not too interactive, barely makes eye contact and speak a word or 2, not in distress Cardiovascular : no JVP, no lower extremity edema Respiratory : bilateral chest movement, not in resp distress Gastrointestinal: soft, lax, Non tender Skin : Warm, Dry Neurological : still mildly encephalopathic but responsive & disoriented , No focal deficit Objective Data Active Medications Acetaminophen (Acetaminophen 325 Mg Tablet) 650 mg PO Q6H PRN PRN Reason: Pain, Mild (Pain Scale 1-3), fever or headache Benzonatate (Benzonatate 100 Mg Capsule) 100 mg PO TID PRN PRN Reason: Cough Benztropine Mesylate (Benztropine Mesylate 1 Mg Tablet) 1 mg PO Q8H PRN PRN Reason: EPS Benztropine Mesylate (Benztropine Mesylate 1 Mg Tablet) 2 mg PO BID [facility] Last Admin: 05/28/24 09:31 Dose: 2 mg Documented By: STEPAN Calcium Carbonate (Calcium Carbonate 750 Mg Tab.Chew) 750 mg PO Q4H PRN PRN Reason: Heartburn Enoxaparin Sodium (Enoxaparin Sodium 40 Mg/0.4 Ml Syringe) 40 mg SUBCUT Q24H [facility] Last Admin: 05/27/24 19:02 Dose: Not Given Documented By: DEBBIE Non-Admin Reason: Patient Refused Haloperidol Lactate (Haloperidol Lactate 5 Mg/Ml Vial) 2.5 mg IM Q4H PRN PRN Reason: anxiety/restlessness Valproic Acid 500 mg/ Dextrose 55 mls @ 55 mls/hr IV BEDTIME [facility] Last Infusion: 05/27/24 23:00 Dose: Infused Documented By: ELOISA Lorazepam (Lorazepam 2 Mg/Ml Vial) 2 mg IM Q2H PRN PRN Reason: Seizures Magnesium Hydroxide (Milk Of Magnesia 30 Ml Oral.Susp) 30 ml PO DAILY PRN PRN Reason: Constipation Melatonin (Melatonin 3 Mg Tablet) 6 mg PO BEDTIME PRN PRN Reason: Insomnia Sodium Chloride (0.9 % Sodium Chloride Flush 3 Ml Syringe) 3 ml IVFLUSH QSHIFT [facility] Last Admin: 05/28/24 09:31 Dose: 3 ml Documented By: STPEAN Labs 05/27/24 15:00 05/28/24 07:02 Labs: Laboratory Results - last 24 hr 05/27/24 05/28/24 15:00 07:02 MCV 90.4 MCH 29.5 MCHC 32.6 RDW 12.6 Plt Count 169 D MPV 11.2 Immature Gran % (Auto) 0.2 Neut % (Auto) 46.9 Lymph % (Auto) 44.8 H Adams % (Auto) 7.5 Eos % (Auto) 0.4 Baso % (Auto) 0.2 Lymph # (Auto) 2.2 Adams # (Auto) 0.4 Eos # (Auto) 0.0 Baso # (Auto) 0.0 Abs Immat Gran (auto) 0.01 Absolute Neuts (auto) 2.3 Absolute Nucleated RBC 0.000 Nucleated RBC % (auto) 0.0 Anion Gap 11 L 11 L Estim Creat Clear Calc 130.4 146.5 Estimated GFR > 60 > 60 Random Glucose 101 74 Calcium 9.2 8.6 D Magnesium 1.9 Total Bilirubin 0.6 0.5 AST 48 H 41 H ALT 55 H 40 Alkaline Phosphatase 36 L 32 L Ammonia 139 H 119 H Total Creatine Kinase 28 L Total Protein 7.2 6.1 L Albumin 3.9 3.3 L Valproic Acid 98.8 Carbamazepine 15.5 H* Assessment and Plan (1) Hyperammonemia: Status: Acute (2) Carbamazepine toxicity: Status: Acute (3) Encephalopathy: Status: Acute (4) Transaminitis: Status: Acute Plan Pt is a 34-year-old male with a PMH significant for?TBI, encephalomalacia, seizure disorder, HLD, transaminitis, extrapyramidal movement disorder, and 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 intake. Pt will be admitted to the hospital for treatment and further evaluation of acute metabolic encephalopathy in the setting of likely iatrogenic hyperammonemia. Acute Toxic metabolic encephalopathy in the setting of hyperammonemia and Carbamazepine toxicity still encephalipathic ammonia still elevated Carbamazepine on hold continue Lactulose Continue to hold statin and Tegretol Continue Depakote to 500 mg IV bid and Haldol to 2.5 mg IM Q 4 p.r.n. for agitation Discontinue Paxlovid Trend ammonia, LFTs Monitor mentation Seizure disorder Hold carbamazepine, reduce Depakote due to transaminitis Ativan 2 mg p.r.n. for seizure activity Seizure precautions Neurology consult COVID Tested positive on 05/22 Increased lethargy and reduced p.o. intake, otherwise asymptomatic: no fever, cough, SOB Discontinue Paxlovid Airborne and contact precautions Encourage PO intake Transaminitis noted prev on March Could be related to medications like Carbamzepine To discuss treatment options with Neurology HLD Hold statin, fenofibrate Mood disorder Med changes as above Extrapyramidal movement disorder Continue benztropine DVT Prophylaxis: Lovenox Pt will require a hospitalization overnight for treatment of?acute metabolic encephalopathy in the setting of likely iatrogenic hyperammonemia and Drug intoxication. Patient will require hospital level care for close monitoring of labs, vitals, and mentation, as well as specialist consultation with Neurology. Quality Stroke Does the patient have a stroke diagnosis?: No VTE Prior VTE?: No VTE Risk Level:: Medical - moderate - high VTE Device Contraindication: Treatment Not Indicated VTE Drug Contraindication: N/A - Med Ordered
--- NOTE | 2024-05-28 12:17 | PM.NEUROCN ---
History of Present Illness Data of Consult Service Date: 05/28/24 Primary Care Provider: Unknown Physician HPI Reason for consult: Encephalopathy 34 years old man with underlying diagnosis of schizoaffective disorder and seizure disorder taking Tegretol and Depakote in addition to haloperidol was noted to be lethargic and confused and was brought to hospital where his Tegretol and Depakote levels were high, and toxic levels, with high ammonia level. There was no evidence of any recent seizure. Review of Systems Review of Systems: Could not be done with him PMFSH Past Medical History Medical History (Updated 05/28/24 @ 12:22 by Margot Wills MD) Schizoaffective disorder, bipolar type Extrapyramidal and movement disorder Transaminitis HLD (hyperlipidemia) Seizure disorder Encephalomalacia TBI (traumatic brain injury) Social History Social History Household Members: Other Housing: Other Do you presently have visiting nurse or other home services: Yes (From [facility]) Comment: m/s admit Patient Tobacco Use Status: Never used Tobacco Smoked in Last 30 Days: No Patient Interested in Nicotine Replacement: No Patient Given Instructions on How to Stop Smoking: No Second Hand Smoke Exposure: No Use of substances other than those prescribed or required for medical reasons: No Currently Displaying Signs/Symptoms of Drug Intoxication Withdrawal: No Any prior treatment program specific to substance use: No Advance Directives: No Advance Directives Information Provided: No Advance Directives on File: No Do you have a plan to hurt others: No Plan Recently lost weight without trying: Yes How much weight loss: 34pounds or more Nutrition Risks: On aspiration precautions Poor oral hygiene: No service: No Meds Allergies Allergy/AdvReac Type Severity Reaction Status Date / Time paliperidone Allergy Unknown Verified 05/27/24 14:22 Active Medications: Current Medications Acetaminophen (Acetaminophen 325 Mg Tablet) 650 mg PO Q6H PRN PRN Reason: Pain, Mild (Pain Scale 1-3), fever or headache Benzonatate (Benzonatate 100 Mg Capsule) 100 mg PO TID PRN PRN Reason: Cough Benztropine Mesylate (Benztropine Mesylate 1 Mg Tablet) 1 mg PO Q8H PRN PRN Reason: EPS Benztropine Mesylate (Benztropine Mesylate 1 Mg Tablet) 2 mg PO BID [facility] Last Admin: 05/28/24 09:31 Dose: 2 mg Calcium Carbonate (Calcium Carbonate 750 Mg Tab.Chew) 750 mg PO Q4H PRN PRN Reason: Heartburn Enoxaparin Sodium (Enoxaparin Sodium 40 Mg/0.4 Ml Syringe) 40 mg SUBCUT Q24H [facility] Last Admin: 05/27/24 19:02 Dose: Not Given Haloperidol Lactate (Haloperidol Lactate 5 Mg/Ml Vial) 2.5 mg IM Q4H PRN PRN Reason: anxiety/restlessness Valproic Acid 500 mg/ Dextrose 55 mls @ 55 mls/hr IV BEDTIME [facility] Last Infusion: 05/27/24 23:00 Dose: Infused Lactulose (Lactulose 20 Gm/30 Ml Solution) 20 gm PO BID [facility] Lorazepam (Lorazepam 2 Mg/Ml Vial) 2 mg IM Q2H PRN PRN Reason: Seizures Magnesium Hydroxide (Milk Of Magnesia 30 Ml Oral.Susp) 30 ml PO DAILY PRN PRN Reason: Constipation Melatonin (Melatonin 3 Mg Tablet) 6 mg PO BEDTIME PRN PRN Reason: Insomnia Sodium Chloride (0.9 % Sodium Chloride Flush 3 Ml Syringe) 3 ml IVFLUSH QSHIFT [facility] Last Admin: 05/28/24 09:31 Dose: 3 ml Home Medications ?Medication ?Instructions ?Recorded ?Confirmed ?Last Taken ?Type acetaminophen 325 mg tablet 650 mg PO Q8H PRN Pain (Scale 05/27/24 05/27/24 Unknown History (Tylenol) Score 1-3) atorvastatin 20 mg tablet 20 mg PO BEDTIME 05/27/24 05/27/24 05/26/24 20:40 History benztropine 1 mg tablet 1 mg PO Q8H PRN EPS 05/27/24 05/27/24 05/27/24 10:57 History benztropine 2 mg tablet 2 mg PO BID 05/27/24 05/27/24 05/27/24 10:57 History carbamazepine 300 mg 300 mg PO BID 05/27/24 05/27/24 05/27/24 10:57 History capsule,extended release [id number] divalproex 250 mg tablet,extended 250 mg PO BEDTIME 05/27/24 05/27/24 05/26/24 20:40 History release 24 hr (Depakote ER) divalproex 500 mg tablet,extended 1,500 mg PO BEDTIME 05/27/24 05/27/24 05/26/24 20:40 History release 24 hr (Depakote ER) fenofibrate nanocrystallized 145 145 mg PO BEDTIME 05/27/24 05/27/24 05/26/24 20:40 History mg tablet haloperidol 10 mg tablet 10 mg PO DAILY PRN Agitation 05/27/24 05/27/24 05/24/24 10:57 History haloperidol decanoate 100 mg/mL 200 mg IM Q4W 05/27/24 05/27/24 Unknown History intramuscular solution haloperidol lactate 5 mg/mL 5 mg IM BEDTIME PRN Psychosis 05/27/24 05/27/24 05/24/24 10:57 History injection solution ibuprofen 600 mg tablet 600 mg PO Q6H PRN Fever Greater 05/27/24 05/27/24 Unknown History then 100? nirmatrelvir 300 mg (150 mg 3 ea PO BID 05/27/24 05/27/24 05/27/24 10:57 History x2)-ritonavir 100 mg tablet,dose pack (Paxlovid) Physical Exam Vital Signs: Vital Signs: Last Vital Signs Temp 97.4 F 05/28/24 08:00 Pulse 54 05/28/24 08:00 Resp 18 05/28/24 08:00 BP 108/72 05/28/24 08:00 Pulse Ox 98 05/28/24 08:00 O2 Del Method Room Air 05/28/24 08:00 BMI result Body Mass Index 22.1 Neuro: Other: He is drowsy and not cooperative with exam at all. He open his eyes and barely made eye contact and pull sheet on his head. Exam was limited and there was no obvious focal weakness. Speech was normal Results Labs 05/27/24 15:00 05/28/24 07:02 Labs: Short CBC 05/27/24 Range/Units 15:00 WBC 4.8 (4.8-10.8) X10*3/uL Hgb 12.3 L (14.0-18.0) g/dl Hct 37.7 L (42.0-52.0) % Plt Count 169 D (160-400) X10*3/uL BMP 05/27/24 05/28/24 15:00 07:02 Sodium 142 140 Potassium 4.1 3.8 Chloride 106 106 Carbon Dioxide 29 27 BUN 14 11 Creatinine 0.80 0.71 Calcium 9.2 8.6 D Cardiac Enzymes 05/27/24 Range/Units 15:00 Total Creatine Kinase 28 L (38-174) U/L Liver Function 05/27/24 05/28/24 Range/Units 15:00 07:02 Total Bilirubin 0.6 0.5 (0.0-1.0) mg/dL AST 48 H 41 H (5-37) U/L ALT 55 H 40 (0-40) U/L Alkaline Phosphatase 36 L 32 L (39-117) U/L Albumin 3.9 3.3 L (3.5-5.0) g/dL Noncontrast head CT did not reveal any significant abnormality Assessment and Plan (1) Encephalopathy: Qualifiers: Encephalopathy type: toxic metabolic Qualified Code(s): G92.8 - Other toxic encephalopathy Status: Acute 34 years old man with encephalopathy related to medications with high ammonia level. As far as seizure disorder is concerned, history is minimal and sketchy. His main issue seems to be behavioral disorder. Epilepsy can not be completely rule in or rule out at this time. It would require better history when he is more inclined and cooperative and further testing with EEG. In the meantime, especially in supervised setting, conservative doses of antiepileptic type of medicine is recommended. Unless for some reason it was needed, I do not recommend to antiepileptics. I recommend stopping all hepatotoxic medicines until his ammonia level is normal and then not starting Tegretol and decreasing dose of valproic acid to 500 mg twice a day. An EEG is recommended but even that could wait till he was mentally somewhat more stable and out of acute COVID. Procedures Date of Service Date of Service: 05/28/24
[2024-05-28 15:30] VITALS: BP 102/63; PULSE 63; RESP 20; TEMP 36.1; O2SAT 99
[2024-05-28] MEDS: Lactulose 20 GM/30 ML SOLUTION PO (19:59)
[2024-05-28 20:00] VITALS: BP 107/71; PULSE 58; RESP 17; TEMP 36; O2SAT 99
[2024-05-28 23:45] VITALS: BP 96/63; PULSE 64; RESP 15; TEMP 36.1; O2SAT 99
[2024-05-29 03:31] VITALS: BP 99/70; PULSE 56; RESP 15; TEMP 36; O2SAT 98
[2024-05-29 07:12] LABS: Ammonia 122 umol/L (13-55)
[2024-05-29 07:18] LABS: Hematocrit 32.4 % (42.0-52.0); Mean Corpuscular Volume 88.3 fL (80.0-98.0); Mean Platelet Volume 11.4 fL (9.4-12.4); Platelet Count 160 X10*3/uL (160-400); Red Blood Count 3.67 X10*6/uL (4.60-5.80); White Blood Count 5.3 X10*3/uL (4.8-10.8)
[2024-05-29 07:34] LABS: Carbamazepine Tegretol 9.4 mcg/mL (5.0-12.0)
[2024-05-29 07:38] LABS: Alanine Aminotransferase 38 U/L (0-40); Albumin Level 3.3 g/dL (3.5-5.0); Alkaline Phosphatase 32 U/L (39-117); Anion Gap 10 (12-20); Aspartate Amino Transferase 40 U/L (5-37); Bilirubin Direct 0.3 mg/dL (0.0-0.5); Bilirubin Total 0.6 mg/dL (0.0-1.0); Blood Urea Nitrogen 11 mg/dL (9-16); Calcium 8.3 mg/dL (8.4-10.2); Carbon Dioxide 25 mmol/L (22-29); Chloride 106 mmol/L (96-108); Creatinine Clr Calc Pharmacy 140.5; Estimated Glomerular Filt Rate > 60; Glucose Random 80 mg/dL (60-115); Potassium 3.6 mmol/L (3.3-5.1); Sodium 137 mmol/L (135-145); Total Protein 6.1 g/dL (6.5-8.0)
[2024-05-29 07:44] VITALS: BP 96/65; PULSE 54; RESP 18; TEMP 37; O2SAT 99
[2024-05-29] MEDS: 0.9 % Sodium Chloride Flush 3 ML SYRINGE IVFLUSH ×3 (09:16→20:56)
[2024-05-29] MEDS: Benztropine Mesylate 1 MG TABLET 2 MG PO ×2 (09:17→20:50)
[2024-05-29] MEDS: Lactulose 20 GM/30 ML SOLUTION PO ×3 (09:17→21:06)
[2024-05-29 11:16] VITALS: BP 99/68; PULSE 72; RESP 18; TEMP 37; O2SAT 99
--- NOTE | 2024-05-29 11:46 | P.PNIM_ITS ---
Subjective Subjective Date of Service: 05/29/24 Interval History: seen and evaluated this morning more alert and interactive did not have bowel movement Ammonia still elevated Tolerating diet no other events Physical Exam 2 Vital Signs: Vital Signs: Last Vital Signs Temp 98.6 F 05/29/24 11:16 Pulse 72 05/29/24 11:16 Resp 18 05/29/24 11:16 BP 99/68 05/29/24 11:16 Pulse Ox 99 05/29/24 11:16 O2 Del Method Room Air 05/29/24 11:16 BMI result Body Mass Index 22.1 Const: Other: Constitutional : more alert and interactive, not in distress Cardiovascular : no JVP, no lower extremity edema Respiratory : bilateral chest movement, not in resp distress Gastrointestinal: soft, lax, Non tender Skin : Warm, Dry Neurological : still mildly encephalopathic but responsive & more oriented about time and place, No focal deficit Objective Data Active Medications Acetaminophen (Acetaminophen 325 Mg Tablet) 650 mg PO Q6H PRN PRN Reason: Pain, Mild (Pain Scale 1-3), fever or headache Benzonatate (Benzonatate 100 Mg Capsule) 100 mg PO TID PRN PRN Reason: Cough Benztropine Mesylate (Benztropine Mesylate 1 Mg Tablet) 1 mg PO Q8H PRN PRN Reason: EPS Benztropine Mesylate (Benztropine Mesylate 1 Mg Tablet) 2 mg PO BID [facility] Last Admin: 05/29/24 09:17 Dose: 2 mg Documented By: STEPAN Calcium Carbonate (Calcium Carbonate 750 Mg Tab.Chew) 750 mg PO Q4H PRN PRN Reason: Heartburn Enoxaparin Sodium (Enoxaparin Sodium 40 Mg/0.4 Ml Syringe) 40 mg SUBCUT Q24H [facility] Last Admin: 05/28/24 18:45 Dose: Not Given Documented By: STEVAN Non-Admin Reason: Patient Refused Haloperidol Lactate (Haloperidol Lactate 5 Mg/Ml Vial) 2.5 mg IM Q4H PRN PRN Reason: anxiety/restlessness Valproic Acid 500 mg/ Dextrose 55 mls @ 55 mls/hr IV BEDTIME [facility] Last Infusion: 05/27/24 23:00 Dose: Infused Documented By: LEOISA Lactulose (Lactulose 20 Gm/30 Ml Solution) 20 gm PO TID [facility] Last Admin: 05/29/24 09:17 Dose: 20 gm Documented By: STEPAN Lorazepam (Lorazepam 2 Mg/Ml Vial) 2 mg IM Q2H PRN PRN Reason: Seizures Magnesium Hydroxide (Milk Of Magnesia 30 Ml Oral.Susp) 30 ml PO DAILY PRN PRN Reason: Constipation Melatonin (Melatonin 3 Mg Tablet) 6 mg PO BEDTIME PRN PRN Reason: Insomnia Sodium Chloride (0.9 % Sodium Chloride Flush 3 Ml Syringe) 3 ml IVFLUSH QSHIFT [facility] Last Admin: 05/29/24 09:16 Dose: 3 ml Documented By: STEPAN Labs 05/29/24 06:52 05/29/24 06:52 Labs: Laboratory Results - last 24 hr 05/29/24 06:52 MCV 88.3 MCH 30.0 MCHC 34.0 RDW 12.0 Plt Count 160 MPV 11.4 Absolute Nucleated RBC 0.000 Nucleated RBC % (auto) 0.0 Anion Gap 10 L Estim Creat Clear Calc 140.5 Estimated GFR > 60 Random Glucose 80 Calcium 8.3 L Total Bilirubin 0.6 Direct Bilirubin 0.3 AST 40 H ALT 38 Alkaline Phosphatase 32 L Ammonia 122 H Total Protein 6.1 L Albumin 3.3 L Carbamazepine 9.4 Assessment and Plan (1) Transaminitis: Status: Acute (2) Carbamazepine toxicity: Status: Acute (3) Hyperammonemia: Status: Acute (4) Toxic metabolic encephalopathy: Status: Acute Plan Pt is a 34-year-old male with a PMH significant for?TBI, encephalomalacia, seizure disorder, HLD, transaminitis, extrapyramidal movement disorder, and 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 intake. Pt will be admitted to the hospital for treatment and further evaluation of acute metabolic encephalopathy in the setting of likely iatrogenic hyperammonemia. Acute Toxic metabolic encephalopathy in the setting of hyperammonemia and Carbamazepine toxicity improving ammonia still elevated Carbamazepine on hold, discontinue on DC per Neurology Discontinue Paxlovid continue Lactulose , increase to TID Continue Depakote to 500 mg bid once mentation back to baseline, HOLD for now Use Haldol to 2.5 mg IM Q 4 p.r.n. for agitation Trend ammonia, LFTs Monitor mentation Seizure disorder Unclear if true seizure or mainly behavioural medicaitons DC carbamazepine, reduce Depakote due to transaminitis upon discharge Ativan 2 mg p.r.n. for seizure activity Seizure precautions Neurology following COVID19 infx Tested positive on 05/22 Increased lethargy and reduced p.o. intake, otherwise asymptomatic: no fever, cough, SOB Discontinue Paxlovid Airborne and contact precautions Encourage PO intake Transaminitis noted prev on March Could be related to medications like Carbamzepine Continue to hold statin and Tegretol To discuss treatment options with Neurology HLD Hold statin, fenofibrate Mood disorder Med changes as above Extrapyramidal movement disorder Continue benztropine DVT Prophylaxis: Lovenox Pt will require a hospitalization overnight for treatment of?acute metabolic encephalopathy in the setting of likely iatrogenic hyperammonemia and Drug intoxication. Patient will require hospital level care for close monitoring of labs, vitals, and mentation, as well as specialist consultation with Neurology. Quality Stroke Does the patient have a stroke diagnosis?: No VTE Prior VTE?: No VTE Risk Level:: Medical - moderate - high VTE Device Contraindication: Treatment Not Indicated VTE Drug Contraindication: N/A - Med Ordered
[2024-05-29 16:00] VITALS: BP 106/70; PULSE 68; RESP 20; TEMP 36.4; O2SAT 96
[2024-05-29 20:00] VITALS: BP 91/55; PULSE 57; RESP 16; TEMP 36.7; O2SAT 98
[2024-05-29 23:34] VITALS: BP 94/59; PULSE 61; RESP 16; TEMP 36.6; O2SAT 98
[2024-05-30] VITALS (7 sets, daily range): BP systolic 84–120; BP diastolic 55–78; PULSE 55–87; RESP 16–17; TEMP 36.1–37.1; O2SAT 97–99
--- NOTE | 2024-05-30 06:04 | PM.EVENT ---
Event Note Date of Service: 05/30/24 Event Note: 5:53 AM - Contacted by nursing patient's BP is 84/55. Chart reviewed and noted BP has been low since last night at 8 PM. 91/55 --> 94/59--> 86/57. No anti-HTN, narcotics or sedative given over the last 12 hours. No fever or tachycardia. Will give one bolus of LR over 1 hour, check lactic acid and BCs. Time Spent With Patient Time: Total time managing care of this patient today ____ minutes.
[2024-05-30] MEDS: Lactated Ringers 1,000 ML 999 ML IV ×2 (06:20→08:00)
--- NOTE | 2024-05-30 06:34 | PC.NURSE ---
Patient had scanty urine output, bladder scan was 117, BP trending low, 84/55. LR bolus is infusing has ordered. Blood culture and lactic acid ordered. Safety maintained.
[2024-05-30 07:21] LABS: Alanine Aminotransferase 45 U/L (0-40); Albumin Level 3.8 g/dL (3.5-5.0); Alkaline Phosphatase 35 U/L (39-117); Anion Gap 12 (12-20); Aspartate Amino Transferase 56 U/L (5-37); Bilirubin Direct 0.3 mg/dL (0.0-0.5); Bilirubin Total 0.6 mg/dL (0.0-1.0); Blood Urea Nitrogen 10 mg/dL (9-16); Calcium 9.3 mg/dL (8.4-10.2); Carbon Dioxide 28 mmol/L (22-29); Chloride 103 mmol/L (96-108); Estimated Glomerular Filt Rate > 60; Glucose Random 140 mg/dL (60-115); Potassium 3.3 mmol/L (3.3-5.1); Sodium 140 mmol/L (135-145); Total Protein 6.7 g/dL (6.5-8.0)
[2024-05-30 07:40] LABS: HBS Num1 111.63 mIU/mL (0-7.99); HBc Num1 0.16 S/CO (0.00-0.79); HBsAGNum1 0.32 S/CO (0.00-0.99); Hepatitis A Antibody IgM 0.19 Index (0-0.79); Hepatitis B Core Antibody Nonreactive (Nonreactive); Hepatitis B Surface Antigen Negative (Negative); ~HepC Num1 0.12 S/CO (0.00-0.79); ~Hepatitis A Antibody IgM Nonreactive (Nonreactive); ~Hepatitis B Surface Antibody REACTIVE (Nonreactive); ~Hepatitis C Antibody Nonreactive (Nonreactive)
[2024-05-30] MEDS: 0.9 % Sodium Chloride Flush 3 ML SYRINGE IVFLUSH ×3 (08:10→20:46)
[2024-05-30 08:41] LABS: Reflex Lactate? Lactic Acid Added
[2024-05-30 09:28] LABS: Ammonia 152 umol/L (13-55); ~Lactic Acid-LAB USE ONLY 1.1 mmol/L (0.5-2.0)
--- NOTE | 2024-05-30 11:52 | P.PNIM_ITS ---
Subjective Subjective Date of Service: 05/30/24 Interval History: seen and evaluated this morning more alert and interactive having bowel movement Ammonia more elevated at 150s Low BP with lactic acidosis Tolerating diet no other events Review of Systems Review of Systems: Yes all other systems are reviewed and are negative Physical Exam 2 Vital Signs: Vital Signs: Last Vital Signs Temp 97.2 F 05/30/24 11:25 Pulse 70 05/30/24 11:25 Resp 17 05/30/24 11:25 BP 98/77 05/30/24 11:25 Pulse Ox 99 05/30/24 11:25 O2 Del Method Room Air 05/30/24 11:25 BMI result Body Mass Index 22.1 Const: Other: Constitutional : more alert and interactive, not in distress Cardiovascular : no JVP, no lower extremity edema Respiratory : bilateral chest movement, not in resp distress Gastrointestinal: soft, lax, Non tender Skin : Warm, Dry Neurological : still mildly encephalopathic but responsive & more oriented about time and place, No focal deficit Objective Data Active Medications Acetaminophen (Acetaminophen 325 Mg Tablet) 650 mg PO Q6H PRN PRN Reason: Pain, Mild (Pain Scale 1-3), fever or headache Benzonatate (Benzonatate 100 Mg Capsule) 100 mg PO TID PRN PRN Reason: Cough Benztropine Mesylate (Benztropine Mesylate 1 Mg Tablet) 1 mg PO Q8H PRN PRN Reason: EPS Benztropine Mesylate (Benztropine Mesylate 1 Mg Tablet) 2 mg PO BID [facility] Last Admin: 05/29/24 20:50 Dose: 2 mg Documented By: WILFRED Calcium Carbonate (Calcium Carbonate 750 Mg Tab.Chew) 750 mg PO Q4H PRN PRN Reason: Heartburn Enoxaparin Sodium (Enoxaparin Sodium 40 Mg/0.4 Ml Syringe) 40 mg SUBCUT Q24H [facility] Last Admin: 05/29/24 18:06 Dose: Not Given Documented By: STEVAN Non-Admin Reason: Patient Refused Haloperidol Lactate (Haloperidol Lactate 5 Mg/Ml Vial) 2.5 mg IM Q4H PRN PRN Reason: anxiety/restlessness Valproic Acid 500 mg/ Dextrose 55 mls @ 55 mls/hr IV BEDTIME [facility] Last Infusion: 05/27/24 23:00 Dose: Infused Documented By: ELOISA Lactulose (Lactulose 20 Gm/30 Ml Solution) 20 gm PO TID [facility] Last Admin: 05/30/24 08:11 Dose: Not Given Documented By: DAVIDSON Non-Admin Reason: Patient Refused Lorazepam (Lorazepam 2 Mg/Ml Vial) 2 mg IM Q2H PRN PRN Reason: Seizures Magnesium Hydroxide (Milk Of Magnesia 30 Ml Oral.Susp) 30 ml PO DAILY PRN PRN Reason: Constipation Melatonin (Melatonin 3 Mg Tablet) 6 mg PO BEDTIME PRN PRN Reason: Insomnia Sodium Chloride (0.9 % Sodium Chloride Flush 3 Ml Syringe) 3 ml IVFLUSH QSHIFT [facility] Last Admin: 05/30/24 08:10 Dose: 3 ml Documented By: DAVIDSON Labs 05/29/24 06:52 05/30/24 06:19 Labs: Laboratory Results - last 24 hr 05/30/24 05/30/24 06:19 08:56 Hold Purple Top SEE NOTE Anion Gap 12 Estim Creat Clear Calc 113.0 Estimated GFR > 60 Random Glucose 140 H Lactic Acid 3.0 H* Lactic Acid F/U @ 2Hr 1.1 Calcium 9.3 D Total Bilirubin 0.6 Direct Bilirubin 0.3 AST 56 H ALT 45 H Alkaline Phosphatase 35 L Ammonia 152 H Total Protein 6.7 Albumin 3.8 Hepatitis A IgM Ab Nonreactive Hep Bs Antigen Negative Hep Bs Antibody REACTIVE Hep B Core Total Ab Nonreactive Hepatitis C Ab (EIA) Nonreactive Assessment and Plan (1) Toxic metabolic encephalopathy: Status: Acute (2) Transaminitis: Status: Acute (3) Hyperammonemia: Status: Acute (4) Carbamazepine toxicity: Status: Acute (5) COVID-19: Status: Acute (6) Acute lactic acidosis: Status: Acute Plan Pt is a 34-year-old male with a PMH significant for?TBI, encephalomalacia, seizure disorder, HLD, transaminitis, extrapyramidal movement disorder, and 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 intake. Pt will be admitted to the hospital for treatment and further evaluation of acute metabolic encephalopathy in the setting of likely iatrogenic hyperammonemia. Acute Toxic metabolic encephalopathy in the setting of hyperammonemia and Carbamazepine toxicity improving ammonia still elevated at 150s, given his mentation improvement maybe we need to hold on checking Ammonia level as an indicator for improvement same way as we do with hepatic encephalopathy. will get GI input for further recommendations Neuro recommending to hold all hepatotoxic medications mainly the seizure ones for now Carbamazepine on hold, discontinue on DC per Neurology Discontinue Paxlovid continue Lactulose , increase to TID Hold on Depakote for now and start on 500 mg bid once mentation back to baseline and liver enzymes better ? recheck with Neuro Use Haldol to 2.5 mg IM Q 4 p.r.n. for agitation Trend ammonia, LFTs Monitor mentation Seizure disorder, unclear Unclear if true seizure or mainly behavioural medicaitons DC carbamazepine, reduce Depakote due to transaminitis upon discharge Ativan 2 mg p.r.n. for seizure activity Seizure precautions Neurology following Acute lactic acidosis with low BP BP runs soft looking back in his chart likely 2/2 decrease PO intake from Covid and encephalopathy not due to sepsis corrected with IV fluids encourage PO intake COVID19 infx Tested positive on 05/22 Increased lethargy and reduced p.o. intake, otherwise asymptomatic: no fever, cough, SOB Discontinue Paxlovid Airborne and contact precautions Encourage PO intake Transaminitis noted prev on March Could be related to medications like Carbamzepine Continue to hold statin and Tegretol To discuss treatment options with Neurology HLD Hold statin, fenofibrate Mood disorder Med changes as above Extrapyramidal movement disorder Continue benztropine DVT Prophylaxis: Lovenox Pt will require a hospitalization overnight for treatment of?acute metabolic encephalopathy in the setting of likely iatrogenic hyperammonemia and Drug intoxication. Patient will require hospital level care for close monitoring of labs, vitals, and mentation, as well as specialist consultation with Neurology. Quality Stroke Does the patient have a stroke diagnosis?: No VTE Prior VTE?: No VTE Risk Level:: Medical - moderate - high VTE Device Contraindication: Treatment Not Indicated VTE Drug Contraindication: N/A - Med Ordered
--- NOTE | 2024-05-30 15:12 | MHC.CM.PN ---
EMR reviewed and per MD rounds, pt is not medically cleared for discharge due to management of toxic metabolic encephalopathy.
[2024-05-30] MEDS: Lactulose 20 GM/30 ML SOLUTION PO ×2 (17:36→20:46)
[2024-05-30] MEDS: Haloperidol Lactate 5 MG/ML VIAL 2.5 MG IM (18:37)
--- NOTE | 2024-05-30 18:38 | PM.EVENT ---
Event Note Date of Service: 05/30/24 Event Note: GI Consult-Full note dictated. History from patient--he answered all questions appropriately in [place]ian, although a anesthesiology medical doctor was at the bedside as well. Imp: Hyperammonemia due to Depakote. I don't see any stigmata of significant liver disease on his exam nor by his labs that would make hepatic encephalopathy a contributing factor here. The slightly elevated LFT's are nonspecific. Rec: Follow neuro recs re: the Depakote and elevated ammonia level. Can continue Lactulose but that may not effect the ammonia level since the increase from the Depakote is felt to be due to a different mechanism of action than in cirrhotic patients. I have ordered an abdominal U/S and some labs to further assess his liver as well, although I don't think he has significant liver disease at this time. Thanks Time Spent With Patient Time: Total time managing care of this patient today ____ minutes.
[2024-05-31 03:58] VITALS: BP 110/65; PULSE 56; RESP 16; TEMP 36.1; O2SAT 99
--- NOTE | 2024-05-31 05:01 | CONS_ITS ---
DATE OF SERVICE: 05/30/2024 REASON FOR CONSULTATION: Elevated ammonia level and encephalopathy, slightly elevated LFTs. HISTORY OF PRESENT ILLNESS: This has been obtained from the patient, who was currently answering all questions appropriately in Niuean, although medical interpreters were at the bedside. History is also obtained from the patient's nurse and the medical record. Patient is a 34-year-old male, admitted here on May 27 for increasing lethargy and anorexia. His past history is significant for traumatic brain injury, encephalomalacia, seizure disorder, elevated LFTs, schizoaffective bipolar disease, extrapyramidal movement disorder, and recent COVID infection. He was transferred to this hospital from [facility]. On admission here, he was found to have an elevated ammonia level and acute metabolic encephalopathy in relation to the elevated ammonia level and some of his medications. Since admission here, he has an improvement in his mental status. Neurology has seen him and feels that Depakote is a contributing factor to the elevated ammonia level. He does not have any known history of chronic liver disease. Since admission, he has been receiving some lactulose. However, his ammonia level has not decreased, but his mental status has significantly improved. He denies any particular GI symptoms such as heartburn, dysphagia, nausea, nor vomiting. He ate his complete dinner this evening. He denies any abdominal pain, early satiety, diarrhea, hematochezia, nor melena. He denies any history of liver disease in himself nor family members. He does not use any alcohol. He denies any pruritus, nor significant fatigue. PRESENT MEDICATIONS: Include acetaminophen p.r.n., Tessalon p.r.n., Cogentin, Lovenox, Haldol p.r.n., lactulose, lorazepam, melatonin, and valproic acid. PAST MEDICAL HISTORY: As above as listed in the History of Present Illness. PAST SURGICAL HISTORY: He denies any surgeries. SOCIAL HISTORY: He denies tobacco nor alcohol. PHYSICAL EXAMINATION: GENERAL: The patient is a pleasant, cooperative, alert male. He answers all questions appropriately including his location and year. SKIN: Warm and dry. Anicteric sclerae. Moist mucous membranes. NECK: Supple. CHEST: Clear. CARDIAC: Normal S1, S2. ABDOMEN: Soft, nondistended, nontender without palpable mass or organomegaly. LABORATORY DATA: His AST on May 22 was 304; however, on admission on May 27 was 48 and that has remained stable since admission. His ALT on May 22 was 188 and on admission on May 27 was 55 and that has remained stable as well. Alkaline phosphatase has been normal. Ammonia level was 139 on May 27, 119 on May 28, 122 on May 29, and 152 today. His total bilirubin has remained normal. Normal electrolytes, BUN and creatinine. White blood cell count of 5.3, hemoglobin 11.0, platelets 160,000. Hepatitis A IgM is negative, hepatitis B antigen is negative, and hepatitis C antibody is negative. IMPRESSION: Given the patient's clinical history, I do not think the elevated ammonia level is from underlying chronic liver disease based on his examination and laboratories. I do feel the elevated ammonia level is in relation to his chronic Depakote use. However, despite the ammonia level remaining elevated, his mental status has seemingly improved significantly and seems quite good at the time of today's interview. He can continue lactulose, but this may not be helping since the mechanism of action for elevated ammonia level in patient's on Depakote is different than in patients with cirrhosis. At this point, I would follow the recommendations from the Neurology team in regard to the use of Depakote and the elevated ammonia level. To complete the workup in regard to any potential underlying liver disease that might be contributing to this, I have ordered an abdominal ultrasound with elastography and some laboratories to further assess his liver as well. MD BAILEY Fabian/ARABELLA / [phone]
[2024-05-31 07:05] LABS: MANUAL DIFF FLAG NO
[2024-05-31 07:18] LABS: Basophils Percent Auto 0.5 % (0-2); Eosinophils Absolute Auto 0.1 X10*3/uL (0.0-0.4); Eosinophils Percent Auto 0.8 % (0-4); Hematocrit 36.2 % (42.0-52.0); Hemoglobin 12.3 g/dl (14.0-18.0); Imm Gran Abs Auto 0.04 X10*3/uL (0.00-0.03); Imm Gran Pct Auto 0.6 % (0.0-0.4); Lymphocytes Absolute Auto 3.2 X10*3/uL (1.2-4.9); Lymphocytes Percent Auto 48.5 % (20-40); Mean Corpuscular Hemoglobin 30.5 pg (27.0-33.0); Mean Corpuscular Volume 89.8 fL (80.0-98.0); Mean Platelet Volume 11.2 fL (9.4-12.4); Monocytes Absolute Auto 0.9 X10*3/uL (0.1-1.2); Monocytes Percent Auto 13.5 % (2-11); Neutrophils Absolute Auto 2.4 x10*3/uL (2.0-8.3); Neutrophils Percent Auto 36.1 % (45-73); Platelet Count 242 X10*3/uL (160-400); Red Blood Count 4.03 X10*6/uL (4.60-5.80); White Blood Count 6.5 X10*3/uL (4.8-10.8)
[2024-05-31 07:20] LABS: INTERNATIONAL NORM RATIO 1.1 (0.9-1.1); Prothrombin Time 12.3 SEC (10.9-12.4)
[2024-05-31 07:33] LABS: Ammonia 62 umol/L (13-55)
[2024-05-31 07:40] LABS: Alanine Aminotransferase 63 U/L (0-40); Alkaline Phosphatase 35 U/L (39-117); Anion Gap 12 (12-20); Aspartate Amino Transferase 76 U/L (5-37); Bilirubin Direct 0.3 mg/dL (0.0-0.5); Bilirubin Total 0.5 mg/dL (0.0-1.0); Blood Urea Nitrogen 11 mg/dL (9-16); Calcium 9.5 mg/dL (8.4-10.2); Carbon Dioxide 28 mmol/L (22-29); Chloride 107 mmol/L (96-108); Creatinine Clr Calc Pharmacy 135.1; Estimated Glomerular Filt Rate > 60; Glucose Random 80 mg/dL (60-115); Sodium 143 mmol/L (135-145); Total Protein 7.3 g/dL (6.5-8.0)
[2024-05-31 07:57] VITALS: BP 104/59; PULSE 60; RESP 16; TEMP 36.4; O2SAT 98
[2024-05-31 10:31] VITALS: BP 90/58; PULSE 64; RESP 16; TEMP 36.4; O2SAT 98
--- NOTE | 2024-05-31 11:54 | HO.PM.IMPN ---
Subjective Subjective Date of Service: 05/31/24 Review of Systems Review of Systems: Yes Unobtainable due to mental status Physical Exam Vital Signs: Vital Signs: Last Vital Signs Temp 97.5 F 05/31/24 10:31 Pulse 64 05/31/24 10:31 Resp 16 05/31/24 10:31 BP 90/58 L 05/31/24 10:31 Pulse Ox 98 05/31/24 10:31 O2 Del Method Room Air 05/31/24 10:31 BMI result Body Mass Index 22.1 Patient sleeping comfortably post Haldol non participatory Lungs clear, heart sounds normal Objective Data Active Medications Acetaminophen (Acetaminophen 325 Mg Tablet) 650 mg PO Q6H PRN PRN Reason: Pain, Mild (Pain Scale 1-3), fever or headache Benzonatate (Benzonatate 100 Mg Capsule) 100 mg PO TID PRN PRN Reason: Cough Benztropine Mesylate (Benztropine Mesylate 1 Mg Tablet) 1 mg PO Q8H PRN PRN Reason: EPS Benztropine Mesylate (Benztropine Mesylate 1 Mg Tablet) 2 mg PO BID [facility] Last Admin: 05/29/24 20:50 Dose: 2 mg Documented By: WILFRED Calcium Carbonate (Calcium Carbonate 750 Mg Tab.Chew) 750 mg PO Q4H PRN PRN Reason: Heartburn Enoxaparin Sodium (Enoxaparin Sodium 40 Mg/0.4 Ml Syringe) 40 mg SUBCUT Q24H [facility] Last Admin: 05/30/24 17:47 Dose: Not Given Documented By: ANNABELLE Non-Admin Reason: Patient Refused Haloperidol Lactate (Haloperidol Lactate 5 Mg/Ml Vial) 2.5 mg IM Q4H PRN PRN Reason: anxiety/restlessness Last Admin: 05/30/24 18:37 Dose: 2.5 mg Documented By: ANNABELLE Valproic Acid 500 mg/ Dextrose 55 mls @ 55 mls/hr IV BEDTIME [facility] Last Infusion: 05/27/24 23:00 Dose: Infused Documented By: ELOISA Lactulose (Lactulose 20 Gm/30 Ml Solution) 20 gm PO TID [facility] Last Admin: 05/31/24 07:41 Dose: Not Given Documented By: ERIC Non-Admin Reason: PT fasting for ultrasound Lorazepam (Lorazepam 2 Mg/Ml Vial) 2 mg IM Q2H PRN PRN Reason: Seizures Magnesium Hydroxide (Milk Of Magnesia 30 Ml Oral.Susp) 30 ml PO DAILY PRN PRN Reason: Constipation Melatonin (Melatonin 3 Mg Tablet) 6 mg PO BEDTIME PRN PRN Reason: Insomnia Sodium Chloride (0.9 % Sodium Chloride Flush 3 Ml Syringe) 3 ml IVFLUSH QSHIFT [facility] Last Admin: 05/31/24 09:31 Dose: Not Given Documented By: ERIC Non-Admin Reason: Patient Asleep Labs 05/31/24 06:53 05/31/24 06:53 Labs: Laboratory Results - last 24 hr 05/31/24 06:53 MCV 89.8 MCH 30.5 MCHC 34.0 RDW 12.0 Plt Count 242 D MPV 11.2 Immature Gran % (Auto) 0.6 H Neut % (Auto) 36.1 L Lymph % (Auto) 48.5 H Bonner % (Auto) 13.5 H Eos % (Auto) 0.8 Baso % (Auto) 0.5 Lymph # (Auto) 3.2 Bonner # (Auto) 0.9 Eos # (Auto) 0.1 Baso # (Auto) 0.0 Abs Immat Gran (auto) 0.04 H Absolute Neuts (auto) 2.4 Absolute Nucleated RBC 0.000 Nucleated RBC % (auto) 0.0 PT 12.3 INR 1.1 Anion Gap 12 Estim Creat Clear Calc 135.1 Estimated GFR > 60 Random Glucose 80 Calcium 9.5 Total Bilirubin 0.5 Direct Bilirubin 0.3 AST 76 H ALT 63 H Alkaline Phosphatase 35 L Ammonia 62 H Total Protein 7.3 Albumin 4.0 Microbiology Microbiology Results: Microbiology 05/30/24 06:19 Blood Culture - Preliminary Blood - Venous No growth after 24 hours. 05/30/24 06:19 Blood Culture - Preliminary Blood - Venous No growth after 24 hours. Assessment and Plan (1) Toxic metabolic encephalopathy: Status: Acute (2) Transaminitis: Status: Acute (3) Hyperammonemia: Status: Acute (4) Carbamazepine toxicity: Status: Acute (5) COVID-19: Status: Acute (6) Acute lactic acidosis: Status: Acute Plan 34M PMH TBI, encephalomalacia, seizure disorder, HLD, transaminitis, extrapyramidal movement disorder, and schizoaffective presented from [facility] on section 21 with?increased lethargy and poor p.o. intake Acute Toxic metabolic encephalopathy in the setting of hyperammonemia and Carbamazepine toxicity improving Neuro recommending to hold all antiepileptics, if needed to restart plan is for Depakote 500 mg b.i.d. Discontinued Paxlovid continue Lactulose for 2-4 bowel movements per day Use Haldol to 2.5 mg IM Q 4 p.r.n. for agitation Trend LFTs, follow-up with GI and liver elastography Monitor mentation Use of antiepileptics Unclear if for mood or seizures At risk for seizures due to encephalomalacia Meds on hold for now, monitor and use low-dose Depakote if needed Neurology following Acute lactic acidosis with low BP BP runs soft looking back in his chart likely 2/2 decrease PO intake from Covid and encephalopathy not due to sepsis corrected with IV fluids encourage PO intake COVID19 infx Tested positive on 05/22 Increased lethargy and reduced p.o. intake, otherwise asymptomatic: no fever, cough, SOB Discontinue Paxlovid Airborne and contact precautions Encourage PO intake Transaminitis noted prev on March Could be related to medications like Carbamzepine HLD Hold statin, fenofibrate Mood disorder Med changes as above Extrapyramidal movement disorder Continue benztropine DVT Prophylaxis: Lovenox reason for continued hospitalization: Not at baseline mental status Quality Stroke Does the patient have a stroke diagnosis?: No VTE Prior VTE?: No VTE Risk Level:: Medical - moderate - high VTE Device Contraindication: Treatment Not Indicated VTE Drug Contraindication: N/A - Med Ordered
[2024-05-31 15:46] VITALS: BP 99/66; PULSE 68; RESP 20; TEMP 36.1; O2SAT 100
[2024-05-31] MEDS: Lactulose 20 GM/30 ML SOLUTION PO ×2 (16:18→20:05)
[2024-05-31 20:00] VITALS: BP 94/60; PULSE 80; RESP 20; TEMP 36; O2SAT 97
[2024-05-31] MEDS: 0.9 % Sodium Chloride Flush 3 ML SYRINGE IVFLUSH (20:08)
[2024-06-01] VITALS (7 sets, daily range): BP systolic 90–117; BP diastolic 51–74; PULSE 65–93; RESP 12–20; TEMP 36.3–36.6; O2SAT 96–100
[2024-06-01 07:41] LABS: Hemoglobin 11.7 g/dl (14.0-18.0); Mean Corpuscular HGB Conc 34.4 g/dl (31.0-36.0); Mean Corpuscular Hemoglobin 30.2 pg (27.0-33.0); Mean Corpuscular Volume 87.9 fL (80.0-98.0); Mean Platelet Volume 10.7 fL (9.4-12.4); Platelet Count 286 X10*3/uL (160-400); Red Blood Count 3.87 X10*6/uL (4.60-5.80); Red Cell Distribution Width 12.2 % (11.0-16.0); White Blood Count 8.1 X10*3/uL (4.8-10.8)
[2024-06-01 08:05] LABS: Alanine Aminotransferase 76 U/L (0-40); Albumin Level 3.9 g/dL (3.5-5.0); Alkaline Phosphatase 36 U/L (39-117); Anion Gap 11 (12-20); Aspartate Amino Transferase 100 U/L (5-37); Bilirubin Direct 0.3 mg/dL (0.0-0.5); Bilirubin Total 0.5 mg/dL (0.0-1.0); Blood Urea Nitrogen 14 mg/dL (9-16); Calcium 9.5 mg/dL (8.4-10.2); Carbon Dioxide 27 mmol/L (22-29); Chloride 109 mmol/L (96-108); Creatinine Clr Calc Pharmacy 138.7; Estimated Glomerular Filt Rate > 60; Glucose Fasting 84 mg/dL (60-99); Potassium 3.8 mmol/L (3.3-5.1); Sodium 143 mmol/L (135-145)
--- NOTE | 2024-06-01 08:52 | P.PNIM_ITS ---
Subjective Subjective Date of Service: 06/01/24 Interval History: Calmer this morning, noncompliant Physical Exam 2 Vital Signs: Vital Signs: Last Vital Signs Temp 97.9 F 06/01/24 08:00 Pulse 76 06/01/24 08:00 Resp 18 06/01/24 08:00 BP 117/72 06/01/24 08:00 Pulse Ox 96 06/01/24 08:00 O2 Del Method Room Air 06/01/24 08:00 BMI result Body Mass Index 22.1 General: Alert, no acute distress Resp: CTA bilateral, no accessory muscles used CVS: S1,S2,RRR GI: soft, non tender, non distended Neuro: motor grossly intact, alert Objective Data Active Medications Acetaminophen (Acetaminophen 325 Mg Tablet) 650 mg PO Q6H PRN PRN Reason: Pain, Mild (Pain Scale 1-3), fever or headache Benzonatate (Benzonatate 100 Mg Capsule) 100 mg PO TID PRN PRN Reason: Cough Benztropine Mesylate (Benztropine Mesylate 1 Mg Tablet) 1 mg PO Q8H PRN PRN Reason: EPS Benztropine Mesylate (Benztropine Mesylate 1 Mg Tablet) 2 mg PO BID [facility] Last Admin: 05/29/24 20:50 Dose: 2 mg Documented By: WILFRED Calcium Carbonate (Calcium Carbonate 750 Mg Tab.Chew) 750 mg PO Q4H PRN PRN Reason: Heartburn Enoxaparin Sodium (Enoxaparin Sodium 40 Mg/0.4 Ml Syringe) 40 mg SUBCUT Q24H [facility] Last Admin: 05/31/24 18:11 Dose: Not Given Documented By: ERIC Non-Admin Reason: Patient Refused Haloperidol Lactate (Haloperidol Lactate 5 Mg/Ml Vial) 2.5 mg IM Q4H PRN PRN Reason: anxiety/restlessness Last Admin: 05/30/24 18:37 Dose: 2.5 mg Documented By: ANNABELLE Lactulose (Lactulose 20 Gm/30 Ml Solution) 20 gm PO TID [facility] Last Admin: 05/31/24 20:05 Dose: 20 gm Documented By: FEI Magnesium Hydroxide (Milk Of Magnesia 30 Ml Oral.Susp) 30 ml PO DAILY PRN PRN Reason: Constipation Melatonin (Melatonin 3 Mg Tablet) 6 mg PO BEDTIME PRN PRN Reason: Insomnia Sodium Chloride (0.9 % Sodium Chloride Flush 3 Ml Syringe) 3 ml IVFLUSH QSHIFT [facility] Last Admin: 05/31/24 20:08 Dose: 3 ml Documented By: FEI Labs 06/01/24 07:21 06/01/24 07:21 Labs: Laboratory Results - last 24 hr 06/01/24 07:21 MCV 87.9 MCH 30.2 MCHC 34.4 RDW 12.2 Plt Count 286 MPV 10.7 Absolute Nucleated RBC 0.000 Nucleated RBC % (auto) 0.0 Anion Gap 11 L Estim Creat Clear Calc 138.7 Estimated GFR > 60 Fasting Glucose 84 Calcium 9.5 Total Bilirubin 0.5 Direct Bilirubin 0.3 AST 100 H ALT 76 H Alkaline Phosphatase 36 L Total Protein 7.0 Albumin 3.9 Microbiology Microbiology Results: Microbiology 05/30/24 06:19 Blood Culture - Preliminary Blood - Venous No growth after 48 hours. 05/30/24 06:19 Blood Culture - Preliminary Blood - Venous No growth after 48 hours. Assessment and Plan (1) Toxic metabolic encephalopathy: Status: Acute (2) Transaminitis: Status: Acute (3) Hyperammonemia: Status: Acute (4) Carbamazepine toxicity: Status: Acute (5) COVID-19: Status: Acute (6) Acute lactic acidosis: Status: Acute Plan 34M PMH TBI, encephalomalacia, seizure disorder, HLD, transaminitis, extrapyramidal movement disorder, and schizoaffective presented from [facility] on section 21 with?increased lethargy and poor p.o. intake Acute Toxic metabolic encephalopathy in the setting of hyperammonemia and Carbamazepine toxicity improving restarting Depakote at 500 mg b.i.d. Discontinued Paxlovid continue Lactulose for 2-4 bowel movements per day Use Haldol to 2.5 mg IM Q 4 p.r.n. for agitation follow-up with GI and liver elastography Monitor mentation Use of antiepileptics Unclear if for mood or seizures At risk for seizures due to encephalomalacia meds deescalated to depakote 500mg bid Neurology following Acute lactic acidosis with low BP BP runs soft looking back in his chart likely 2/2 decrease PO intake from Covid and encephalopathy not due to sepsis corrected with IV fluids encourage PO intake COVID19 infx Tested positive on 05/22 Increased lethargy and reduced p.o. intake, otherwise asymptomatic: no fever, cough, SOB Discontinue Paxlovid Airborne and contact precautions Encourage PO intake Transaminitis noted prev on March Could be related to medications like Carbamzepine HLD Hold statin, fenofibrate Mood disorder Med changes as above DVT Prophylaxis: Lovenox reason for continued hospitalization: monitoring response to med adjustments Quality Stroke Does the patient have a stroke diagnosis?: No VTE Prior VTE?: No VTE Risk Level:: Medical - moderate - high VTE Device Contraindication: Treatment Not Indicated VTE Drug Contraindication: N/A - Med Ordered
[2024-06-01] MEDS: Lactulose 20 GM/30 ML SOLUTION PO ×3 (08:53→20:35)
[2024-06-01] MEDS: Valproic Acid 250 MG CAPSULE 500 MG PO ×2 (10:18→20:35)
--- NOTE | 2024-06-01 11:02 | MHC.CM.PN ---
Per rounds, pt is improving, is now being monitored for response to med adjustments. Cm spoke with nurse at [facility], obtained fax # to send latest MD PN (fax [phone]), anticipate pt will return to [place] on 06/02/24.
[2024-06-01] MEDS: Benztropine Mesylate 1 MG TABLET 2 MG PO (20:35)
[2024-06-02] VITALS: BP 106/56; PULSE 68; RESP 12; TEMP 36.6; O2SAT 99
[2024-06-02 04:00] VITALS: BP 93/61; PULSE 61; RESP 12; TEMP 35.8; O2SAT 98
[2024-06-02 08:00] VITALS: BP 103/68; PULSE 74; RESP 20; TEMP 36.2; O2SAT 96
[2024-06-02] MEDS: Valproic Acid 250 MG CAPSULE 500 MG PO (08:46)
[2024-06-02] MEDS: Lactulose 20 GM/30 ML SOLUTION PO (08:46)
[2024-06-02] MEDS: Benztropine Mesylate 1 MG TABLET 2 MG PO (08:47)
--- NOTE | 2024-06-02 08:57 | PM.DS ---
DS: Providers Provider Date of Service: 06/02/24 Date of admission: 05/27/24 18:22 Date of discharge: 06/02/24 Primary care physician: Unknown Physician Consults: 05/27/24 19:38 Consult to Neurology Routine Consulting Provider: [facility] Reason for consultation: Elevated LFTs, Tegretol levels, med mangement 05/30/24 11:57 Consult to Gastroenterology Routine Consulting Provider: Jeremiah Cuello Reason for consultation: Hyperammonemia , Transaminitis, Encephalopathy DS: Diagnosis Discharge Diagnosis (1) Toxic metabolic encephalopathy: Status: Acute (2) Transaminitis: Status: Acute (3) Hyperammonemia: Status: Acute (4) Carbamazepine toxicity: Status: Acute (5) COVID-19: Status: Acute (6) Acute lactic acidosis: Status: Acute DS: Summary Hospital Course Hospital Course: from initial hpi: 34-year-old male with a PMH significant for?TBI, encephalomalacia, seizure disorder, HLD, transaminitis, extrapyramidal movement disorder, and 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 intake. Patient presented to the ED 5 days prior on 05/22 for evaluation of fever and lethargy and was found to be COVID positive. Discharge back to facility on . Per staff, pt has since continued to have poor p.o. intake and self care and presents today due to increased lethargy. Has not had any noticeable cough or SOB. Staff note pt has severe schizophremia and can often appear nearly catatonic, though does occasionally speak to staff and residents. Has apparently lost 50+ lbs in last 4 months. Pt himself here in the ED is minimally interactive, nearly nonverbal during interview and exam, and only occasionally following basic commands. Patient's only verbal response was to state his name, though he did this several minutes after the question was initially posed. Pt has been a resident at [facility] since 10/14/2023. In the ED pt with slightly soft BP 108/59, vitals otherwise stable and WNL. Labs were significant for AST 48, ALT 55, alk-phos 36, and ammonia 139. No leukocytosis. Stable H&H. No significant electrolyte abnormalities. Valproic acid therapeutic at 98.8. CXR showed no acute cardiopulmonary disease. Pt was treated with IVF and lactulose 30 g p.o.. Pt will be admitted to the hospital for treatment and further evaluation of acute metabolic encephalopathy in the setting of likely iatrogenic hyperammonemia. hospital course: Patient was admitted for acute toxic metabolic encephalopathy in the setting of hyperammonemia and carbamazepine toxicity. He was seen by neurology recommended discontinuing carbamazepine and valproic acid for now then restarting valproic acid 500 mg b.i.d. if needed. This was done in patient's mental status returned to baseline. He became much, and alert. LFTs improved. Was seen by Gastroenterology who recommended liver elastography which showed compensated liver disease with low risk for progression. Can follow up outpatient. For acute lactic acidosis with low blood pressure not due to sepsis was corrected with IV fluids. For recent COVID 19 patient was asymptomatic and discontinued Paxlovid. For hyperlipidemia statin and fenofibrate have been discontinued due to elevated transaminases. Patient will returned to [facility]. Time Attestation Discharge Coordination Time (in mins): 32 Quality: Safe Use of Opioids Does Pt have an Active Cancer Diagnosis on the Problem List?: No Quality: Stroke Does the patient have a stroke diagnosis?: No Physical Exam Vital Signs: Vital Signs: Last Vital Signs Temp 97.2 F 06/02/24 08:00 Pulse 74 06/02/24 08:00 Resp 20 06/02/24 08:00 BP 103/68 06/02/24 08:00 Pulse Ox 96 06/02/24 08:00 O2 Del Method Room Air 06/02/24 08:00 BMI result Body Mass Index 22.1 General: alert, calm, no acute distress Resp: CTA bilateral, no accessory muscles used CVS: S1,S2,RRR GI: soft, non tender, non distended Neuro: motor grossly intact, alert DS: Data Data Completed and Pending Labs on day of discharge: Preliminary micro results at discharge 05/30/24 06:19 Blood Culture - Preliminary Blood - Venous No growth after 48 hours. 05/30/24 06:19 Blood Culture - Preliminary Blood - Venous No growth after 48 hours. Discharge Plan Discharge Anticipated Discharge Date/Time: 06/02/24 08:54 Patient Disposition: Xfer Psychiatric Hosp Discharge Diagnosis: Encephalopathy, transaminitis Referrals: JohannMargot ribeiro MD [Physician] - 1 Week Physician,Unknown J [Primary Care Provider] - 1 Week Jeremiah Cuello MD [Physician] - 1 Week Discharge Medications: New valproic acid 250 mg Capsule 500 mg PO BID Qty: 360 0RF lactulose 20 gram/30 mL Solution 20 g PO DAILY Qty: 2700 0RF Continued haloperidol decanoate 100 mg/mL Solution 200 mg IM Q4W haloperidol 10 mg Tablet 10 mg PO DAILY PRN (Reason: Agitation) benztropine 1 mg Tablet 1 mg PO Q8H PRN (Reason: EPS) benztropine 2 mg Tablet 2 mg PO BID haloperidol lactate 5 mg/mL Solution 5 mg IM BEDTIME PRN (Reason: Psychosis) ibuprofen 600 mg Tablet 600 mg PO Q6H PRN (Reason: Fever Greater then 100?) acetaminophen [Tylenol] 325 mg Tablet 650 mg PO Q8H PRN (Reason: Pain (Scale Score 1-3)) Discontinued atorvastatin 20 mg Tablet 20 mg PO BEDTIME divalproex [Depakote ER] 500 mg Tablet Extended Release 24 Hr 1,500 mg PO BEDTIME divalproex [Depakote ER] 250 mg Tablet Extended Release 24 Hr 250 mg PO BEDTIME carbamazepine 300 mg Capsule, Er Multiphase 12 Hr 300 mg PO BID fenofibrate nanocrystallized 145 mg Tablet 145 mg PO BEDTIME Paxlovid 300 mg (150 mg x 2)-100 mg tablets,dose pack 3 ea PO BID Discharge Orders: Discharge Order (Routine); Ordered 06/02/24 Ordered By: Justin Crisostomo Diet: Advance to usual diet Activity on Discharge: As tolerated Stand Alone Forms: Patient Portal Discharge page Print Language: Scottish Care Plan Goals: [facility] Concerns: Decompensated liver disease, elevated ammonia, encephalopathy Plan of Treatment: Carbamazepine has been discontinued and valproic acid decreased, follow up with Neurology and Gastroenterology, can continue with daily lactulose Assessment: See above
--- NOTE | 2024-06-02 09:19 | MHC.CM.PN ---
Addendum entered by Brittney Walters 06/02/24 12:04: DC info has been faxed to [facility]. Original Note: Patient is discharged today. He will return to [facility] via [facility]. 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
[2024-06-08 00:19] LABS: FIB-ALT 42 U/L (9-46); FIB-Alpha-2-Macroglobulin 168 mg/dL (106-279); FIB-Apolipoprotein A1 120 mg/dL (94-176); FIB-GGT 95 U/L (3-90); FIB-Haptoglobin 131 mg/dL (43-212); FIB-Total Bilirubin 0.4 mg/dL (0.2-1.2); Liver Fibrosis Stage F0; Nec Inflam Act Grade A0-A1; Nec Inflam Act Score 0.21; Reference ID 5177059
== END 2024-06-02 13:25 | DRG 423 ==
LOC: HO.ED 17:30 → HO.EDOVER 18:34 → HO.IMC 19:31
PROVIDERS: Internal Medicine; Physician Assistant; Student in an Organized Health Care Education/Training Program; Admitting Provider Student in an Organized Health Care Education/Training Program; Emergency Provider Internal Medicine; Visit Provider Internal Medicine
DX: E72.20 Disorder of urea cycle metabolism, unspecified (principal); U07.1 COVID-19; G92.8 Other toxic encephalopathy; G25.9 Extrapyramidal and movement disorder, unspecified; E87.21 Acute metabolic acidosis; F25.0 Schizoaffective disorder, bipolar type; G40.909 Epilepsy, unspecified, not intractable, without status epilepticus; R74.01 Elevation of levels of liver transaminase levels; T42.1X5A Adverse effect of iminostilbenes, initial encounter; E78.5 Hyperlipidemia, unspecified; Z79.899 Other long term (current) drug therapy
CPT/HCPCS: 36415; 71045; 76705; 76981; 80048; 80053; 80076; 80156; 80164; 81596; 82140; 82550; 83605; 83735; 85025; 85027; 85610; 86704; 86706; 86709; 86803; 87040; 87340; 99285; J1630; J7120

== ENCOUNTER → 2024-05-27 18:22 | Outpatient (BNV) | payer MEDICAID, SELFPAY | PROVIDERS: Admitting Provider Student in an Organized Health Care Education/Training Program; Emergency Provider Internal Medicine; Visit Provider Psychiatry & Neurology Neurology | DX: G92.8 Other toxic encephalopathy (principal) | CPT/HCPCS: 99222 ==

== ENCOUNTER → 2024-05-27 18:22 | Outpatient (BNV) | payer MEDICAID, SELFPAY | PROVIDERS: Admitting Provider Student in an Organized Health Care Education/Training Program; Emergency Provider Internal Medicine; Visit Provider Student in an Organized Health Care Education/Training Program | DX: G93.41 Metabolic encephalopathy (principal); T42.1X1A Poisoning by iminostilbenes, accidental (unintentional), initial encounter; E72.20 Disorder of urea cycle metabolism, unspecified; R74.01 Elevation of levels of liver transaminase levels; U07.1 COVID-19; E87.21 Acute metabolic acidosis | CPT/HCPCS: 99223; 99232; 99233; 99239; 99499 ==

== ENCOUNTER 2025-06-28 15:09 | Outpatient (AMB) | payer MEDICAID, SELFPAY ==
--- NOTE | 2025-06-28 15:29 | MHC.OFFVIS ---
Intake Visit Reasons: sz Allergies paliperidone Allergy (Verified 05/27/24 14:22) Unknown HPI Comments Details: 35 years old left-handed man who was born [place] and was having seizure since he was a child. He could not remember when it started. Exact detail was not available. Over the years seizures have continued and he also has been diagnosed with schizoaffective disorder. He finished school but did not work. He was living in a [facility]. He denied use of cocaine or heart could drugs other than weed. As far as he knew, there was no history of head injury. He said that he did not remember is childhood. There was no family history of seizure disorder or at least he was not aware of that. As far as seizures were concerned, there were happening about couple of times a month despite taking Depakote. Typically, he had a feeling of dizziness that it could not elaborate further and then he would pass out. According to the staff at [facility], he would become unresponsive in his right hand would convulse or shake for few minutes. He was forgetful of these events. There was no incontinence. [facility] Medical History (Updated 06/28/25 @ 15:39 by Margot Wills MD) Schizoaffective disorder, bipolar type Extrapyramidal and movement disorder Transaminitis HLD (hyperlipidemia) Seizure disorder Encephalomalacia TBI (traumatic brain injury) Social History Household Members: Other Housing: Other Do you presently have visiting nurse or other home services: Yes (From [place]) Comment: m/s admit Patient Tobacco Use Status: Never used Tobacco Second Hand Smoke Exposure: No service: No Review of Systems Narrative - Neurological: Reports dizziness as a seizure precursor, post-ictal confusion, and amnesia. - Denies abnormal smell or taste. Physical Exam Neuro Other: Mental Status: Alert and oriented to person, place, and time. Normal attention. Normal spontaneous speech, fluency, and comprehension. Cranial Nerves: CN II: Visual juares full to confrontation, visual acuity intact. CN III, IV, : Pupils equal, round, reactive to light and accommodation. Extraocular movements are normal. CN V: Facial sensation is normal. CN VII: Facial movements symmetrical. CN VIII: Hearing intact to bedside conversation is normal. CN IX, X: Palate elevates symmetrically. CN XI: Shoulder shrug and head turn symmetrical. CN XII: Tongue midline without atrophy or fasciculations. Motor: No obvious arm or leg weakness. Deep tendon reflexes are trace. Coordination: [id number] is okay. Gait and Station: No obvious gait abnormality. No ataxia or instability. Extrapyramidal: Full facial expressions and blinking. No rigidity. Movements are appropriate with no tremor or abnormality. Speech: Normal; no dysarthria or tremor. Assessment & Plan Assessment & Plan (1) Seizure disorder: Code(s): G40.909 - Epilepsy, unspecified, not intractable, without status epilepticus Category: Medical Plan 35 years old man with reported long history of seizure disorder that were suggestive of probably left hemispheric complex partial seizures. He had a head CT done in 2023 that did not reveal any significant abnormality. His examination was nonfocal. For now, he is advised to have an MRI of brain with and without contrast in an EEG to define his condition. Orders: Orders MR head/brain wo/w con Today G40.909 - Epilepsy, unspecified, not intractable, without status epilepticus EEG Routine Today G40.909 - Epilepsy, unspecified, not intractable, without status epilepticus Coding Level of Care Code Est Pt Level 4 (50410) Diagnoses Seizure disorder G40.909
== END 2025-06-28 15:52 | disposition home or self-care (01) ==
LOC: HO.HSM 15:09
PROVIDERS: PCP Internal Medicine; Visit Provider Psychiatry & Neurology Neurology
DX: G40.909 Epilepsy, unspecified, not intractable, without status epilepticus (principal)
CPT/HCPCS: 99214

== ENCOUNTER → 2025-06-28 15:09 | Outpatient (BNVA) | payer MEDICAID, SELFPAY | PROVIDERS: PCP Internal Medicine; Visit Provider Psychiatry & Neurology Neurology | DX: G40.909 Epilepsy, unspecified, not intractable, without status epilepticus (principal) | CPT/HCPCS: 99212 ==

== ENCOUNTER 2025-08-07 10:41 | Outpatient (REF) | payer MEDICAID, SELFPAY ==
--- NOTE | 2025-08-07 10:49 | EEG_ITS ---
History: H/O Schizoaffective disorder, bipolar type, Extrapyramidal and movement disorder, Transaminitis, HLD (hyperlipidemia), Seizure disorder, Encephalomalacia, TBI (traumatic brain injury) - pt has a few seizures a month described as feeling of dizziness followed by passing out- last event date unknown - according to the staff at [facility], he would become unresponsive in his right hand would convulse or shake for few minutes- pt does not recall events- no incontinence noted Medication: Depakote Technical Description Photic Stimulation: Completed Hyperventilation: Performed- Poor to fair effort Behavioral State: cooperative -slight tremor of his jaw is noted intermittently in awake state - tremor does not correlate to EEG changes on study State of Consciousness: awake and asleep Skull Defect: no Sedation: no Handedness: Left Duration: 35 min s 20 secs Tech comment: slight tremor of his jaw is noted intermittently in awake state - tremor does not correlate to EEG changes on study Last Meal: 08/07/25 Time / date of last symptom: May 2025 Description: This is a 16 channel EEG with an EKG lead. Patient is reported awake and sleep during the tracing. Background EEG rhythm is mixed theta beta low to medium amplitude with intermittent left temporal sharp waves at T3. Photic stimulation did not produce any significant driving. Hyperventilation did not produce any other finding. Cardiac lead did not reveal any arrhythmia. 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 MTDD
--- OUTSIDE RECORDS SUMMARY | 2025-08-07 12:14 | XMS_ITS | Clinical Summary ---
Author Organization [facility] Address [address] [place] [address] Phone Care Team Providers Care Return Checker Name Role Phone Chiquis Curiel MD Primary Care Provider [phone] Allergies No known active allergies Medications No known medications Active Problems No known active problems Encounters Date Type Department Care Team Description 05/07/2025 10:38 PM EDT - 05/08/2025 1:23 AM EDT Emergency [facility] Emergency [address] [place] [address] Xavier Richardson MD Schizoaffective disorder, bipolar type (CMS/HCC V24, CMS/HCC V28) (Primary Dx) Discharge Disposition: Home or Self Care from Last 3 Months Social History Tobacco Use Types Packs/Day Years Used Date Smoking Tobacco: Never Assessed Sex and Gender Information Value Date Recorded Sex Assigned at Not on file Legal Sex Male 4:51 PM EST Gender Identity Not on file Sexual Orientation Not on file Last Filed Vital Signs Vital Sign Reading Time Taken Comments Blood Pressure 117/78 05/08/2025 1:02 AM EDT Pulse 70 05/08/2025 1:02 AM EDT Temperature 36.7 C (98 F) 05/08/2025 1:02 AM EDT Respiratory Rate 18 05/08/2025 1:02 AM EDT Oxygen Saturation 96% 05/08/2025 1:02 AM EDT Inhaled Oxygen Concentration - - Weight 68 kg (150 lb) 05/07/2025 8:33 PM EDT Height 175.3 cm (5' 9 ) 05/07/2025 8:33 PM EDT Body Mass Index 22.15 05/07/2025 8:33 PM EDT Plan of Treatment Health Maintenance Due Date Last Done Comments DTaP,Tdap,and Td Vaccines (1 - Tdap) 2010 Hepatitis B Vaccines (1 of 3 - 19+ 3-dose series) 2010 Pneumococcal Vaccine: Pediatrics (0 to 5 Years) and At-Risk Patients (6 to 49 Years) (1 of 2 - PCV) 2010 HPV Vaccines (1 - 3-dose SCD M series) 2018 HIV Screening 07/09/2022 Hepatitis C Screening 07/09/2022 Social Influencers of Health Screening 07/09/2022 Depression Screening 08/10/2024 COVID-19 Vaccine (1 - 2024-2 6 season) 2025 Influenza Vaccine (#1) 2025 Cholesterol Screening (Lipid Panel) 03/01/2030 03/01/2025, 10/06/2024 RSV Immunization Adult Patients (1 - 1-dose 75+ series) 2066 HIB Vaccines Aged Out No longer eligi ble based on patient's age to complete this topic Hepatitis A Vaccines Aged Out No long er eligible based on patient's age to complete this topic IPV Vaccines Aged Out No longer eligi ble based on patient's age to complete this topic MMR Vaccines Aged Out No longer eligi ble based on patient's age to complete this topic Meningococcal ACWY Vaccine Aged Out N o longer eligible based on patient's age to complete this topic Meningococcal B Vaccine Aged Out No l onger eligible based on patient's age to complete this topic RSV Immunization Patients Under 20 months Aged Out No longer eligible b ased on patient's age to complete this topic Varicella Vaccines Aged Out No longer eligible based on patient's age to complete this topic Procedures Procedure Name Priority Date/Time Associated Diagnosis Comments ECG ANNOTATED 05/09/2025 LIPID PANEL WITH REFLEX TO DIRECT LDL Routine 03/01/2025 9:41 AM EDT Diabetes mellitus (CMS/HCC V24, CMS/HCC V28) Bipolar II disorder (CMS/HCC V24, CMS/HCC V28) Kojevnikov's epilepsy (CMS/HCC V24, CMS/HCC V28) from Last 3 Months or Most Recently Relevant to Health Maintenance Results * ECG-Annotated (05/09/2025) us Provider Onbase MD ECG ORDERABLES Final Result * (ABNORMAL) Lipid panel with reflex to direct LDL (03/01/2025 9:41 AM EDT) Cholesterol 207(H) 0 - 200 mg/dL LAB CHEMISTRY METHOD 03/01/2025 12:57 PM EDT [facility] Triglycerides 148 0 - 150 mg/dL LAB CHEMISTRY METHOD 03/01/2025 12:57 PM EDT [facility] HDL 55 >=40 mg/dL LAB CHEMISTRY METHOD 03/01/2025 12:57 PM EDT [facility] LDL Calculated 122(H) 0 - 100 mg/dL LAB CHEMISTRY METHOD 03/01/2025 12:57 PM EDT [facility] VLDL Cholesterol Cain 29.6 mg/dL LAB CHEMISTRY METHOD 03/01/2025 12:57 PM EDT [facility] Non HDL Chol. (LDL+VLDL) 152(H) <145 mg/dL LAB CHEMISTRY METHOD 03/01/2025 12:57 PM EDT [facility] Chol/HDL Ratio 3.8 0.0 - 4.4 LAB CHEMISTRY METHOD 03/01/2025 12:57 PM T [facility] Blood Venous blood specimen / Unknown Venipuncture / Unknown 03/01/2025 9:41 AM EDT 03/01/2025 11:43 AM EDT us Chiquis Curiel MD LAB BLOOD ORDERABLES Final Re sult [facility] [address] [place] [address], [place] [phone] from Last 3 Months or Most Recently Relevant to Health Maintenance Insurance MEDICA[place] - [place] Advance Directives Documents on File Type Date Recorded Patient Internal Audit Director Expl anation Health Care Decision (hx) 08/05/2018 AD [place] DIRECTIVE Health Care Decision (hx) 08/05/2018 AD [place]OLDSTEIN DIRECTIVE Health Care Decision (hx) 08/05/2018 AD [place]OLDSTEIN DIRECTIVE Health Care Decision (hx) 08/05/2018 AD GOLDSTEIN DIRECTIVE Health Care Decision (hx) 08/05/2018 AD GOLDSTEIN DIRECTIVE Health Care Decision (hx) 08/05/2018 AD GOLDSTEIN DIRECTIVE Health Care Decision (hx) 08/05/2018 AD GOLDSTEIN DIRECTIVE Health Care Decision (hx) 08/05/2018 AD GOLDSTEIN DIRECTIVE Health Care Decision (hx) 08/05/2018 AD GOLDSTEIN DIRECTIVE Health Care Decision (hx) 08/05/2018 AD GOLDSTEIN DIRECTIVE Health Care Decision (hx) 08/05/2018 AD GOLDSTEIN DIRECTIVE Health Care Decision (hx) 08/05/2018 AD GOLDSTEIN DIRECTIVE Care Teams Return Checker Relationship Specialty Start Date End Date Chiquis Curiel MD [address] [place] [address] [place] [address] PCP - General Internal Medicine 10/06/24
--- OUTSIDE RECORDS SUMMARY | 2025-08-07 12:14 | XMS_ITS | Encounter Summary ---
Author Organization [employer] Address [address] [place] [address] Care Team Providers Care Claim Service Representative Name Role Phone Chiquis Curiel MD Primary Care Provider [phone] Encounter Details Date Type Department Care Team (Late st Contact Info) Description 02/02/2025 Lab Requisition [facility] - Main Lab [address] [place] [address] Chiquis Curiel MD [address] [place] [address] [place] [address] Type 2 diabetes mellitus without complications (CMS/HCC V24, CMS/HCC V28); Localization-related (focal) (partial) symptomatic epilepsy and epileptic syndromes with simple partial seizures, not intractable, without status epilepticus (CMS/HCC V24, CMS/HCC V28) Social History Tobacco Use Types Packs/Day Years Used Date Smoking Tobacco: Never Assessed Sex and Gender Information Value Date Recorded Sex Assigned at Not on file Legal Sex Male 4:51 PM EST Gender Identity Not on file Sexual Orientation Not on file documented as of this encounter Plan of Treatment Scheduled Orders Name Type Priority Associated Diagnoses Orde r Schedule Comprehensive metabolic panel Lab Routine Type 2 diabetes mellitus without complications (CMS/HCC V24, CMS/HCC V28) Ordered: 02/02/2025 Valproic acid level, total Lab Routine Localization-related (focal) (partial) symptomatic epilepsy and epileptic syndromes with simple partial seizures, not intractable, without status epilepticus (CMS/HCC V24, CMS/HCC V28) Ordered: 02/02/2025 CBC and differential Lab Routine Localization-related (focal) (partial) symptomatic epilepsy and epileptic syndromes with simple partial seizures, not intractable, without status epilepticus (CMS/HCC V24, CMS/[facility] V28) Ordered: 02/02/2025 Lipid panel with reflex to direct LDL Lab Routine Type 2 diabetes mellitus without complications ([facility] V24, [facility] V28) Ordered: 02/02/2025 Hemoglobin A1c Lab Routine Type 2 diabetes mellitus without complications ([facility] V24, [facility] V28) Ordered: 02/02/2025 documented as of this encounter Visit Diagnoses Diagnosis Type 2 diabetes mellitus without complications ([facility] V24, [facility] V28) Localization-related (focal) (partial) symptomatic epilepsy and epileptic syndromes with simple partial seizures, not intractable, without status epilepticus ([facility] V24, [facility] V28) documented in this encounter Care Teams Claim Service Representative Relationship Specialty Start Date End Date Chiquis Curiel MD [address] [place] [address] Dr [place], [place] [address] PCP - General Internal Medicine 10/06/24 documented as of this encounter
== END 2025-08-07 10:42 | disposition home or self-care (01) ==
LOC: HO.NEURO 10:41
PROVIDERS: PCP Internal Medicine; Visit Provider Psychiatry & Neurology Neurology
DX: G40.909 Epilepsy, unspecified, not intractable, without status epilepticus (principal)
CPT/HCPCS: 95819

== ENCOUNTER → 2025-08-07 10:49 | Outpatient (BNV) | payer MEDICAID, SELFPAY | PROVIDERS: PCP Internal Medicine; Visit Provider Psychiatry & Neurology Neurology | DX: G40.909 Epilepsy, unspecified, not intractable, without status epilepticus (principal) | CPT/HCPCS: 95819 ==